=== PATIENT | female | born 1935 | race Caucasian/White ===

== ENCOUNTER → 2016-11-20 | Outpatient (CLI) | payer OTHER, BC ==
[~2016-11-20] MED LIST: DONE23TA PO; MOME220A INH
--- NOTE | 2016-11-20 15:27 | DIAGNOSTIC IMAGING REPORT ---
RIGHT RIBS UNILATERAL WITH PA CHEST CLINICAL HISTORY: Right-sided rib pain. COMPARISON STUDY: Chest CT July 01, 2016. FINDINGS: There are several old left rib fractures. There is no pneumothorax or pleural effusion. There is moderate S-shaped scoliosis of thoracolumbar spine. There is an acute mildly displaced fracture of the anterolateral right eighth rib. IMPRESSION: 1. Acute minimally displaced fracture of the anterolateral right eighth rib. 2. No pneumothorax. Electronically signed by: Avery John M.D. 11/20/2016 3:26 PM Dictated Date/Time: 11/20/2016 3:23 PM
== END | disposition home or self-care (01) ==
LOC: C.RADBC 14:37
PROVIDERS: ATTEND Physician Assistant Medical
DX: J20.9 Acute bronchitis, unspecified (principal); R07.81 Pleurodynia; M84.48XA Pathological fracture, other site, initial encounter for fracture

== ENCOUNTER → 2016-12-25 | Outpatient (CLI) | payer OTHER, BC ==
--- NOTE | 2016-12-25 11:43 | DIAGNOSTIC IMAGING REPORT ---
LEFT THUMB RADIOGRAPHS CLINICAL HISTORY: Left thumb pain, redness and swelling. COMPARISON: None FINDINGS: Alignment of left thumb is anatomic. There is moderate osteophytosis with mild to moderate joint space narrowing of the interphalangeal joint of the left thumb. An adjacent calcific/ossific density is chronic. There is no acute fracture or dislocation of the left thumb. No erosions are identified. There is mild osteoarthritis of the left first carpometacarpal joint. IMPRESSION: 1. No acute fracture or dislocation of the left thumb. 2. 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 Electronically signed by: Avery John M.D. 12/25/2016 11:42 AM Dictated Date/Time: 12/25/2016 11:40 AM
== END | disposition home or self-care (01) ==
LOC: C.RADBC 11:07
PROVIDERS: ATTEND Physician Assistant
DX: M79.645 Pain in left finger(s) (principal); M19.042 Primary osteoarthritis, left hand

== ENCOUNTER → 2017-02-02 | Outpatient (CLI) | payer OTHER, BC ==
[2017-02-02 15:24] LABS: ALT/SGPT 23 U/L (12-78); AST/SGOT 18 U/L (15-37); BLOOD UREA NITROGEN 18 mg/dl (7-18); BUN/CREATININE RATIO 15.3 (10-20); CALCIUM 9.9 mg/dl (8.5-10.1); CARBON DIOXIDE 29 mmol/L (21-32); CHLORIDE 104 mmol/L (98-107); CHOLESTEROL 215 mg/dl (0-200); GLUCOSE 88 mg/dl (70-99); POTASSIUM 4.1 mmol/L (3.5-5.1); SODIUM 141 mmol/L (136-145)
[2017-02-02 15:35] LABS: ALB/GLOB RATIO 1.1 (0.9-2); ALKALINE PHOSPHATASE 68 U/L (45-117); CHOLESTEROL/HDL RATIO 2.2; HDL CHOLESTEROL 100 mg/dl; LDL CHOLESTEROL CALCULATED 91 mg/dl; TRIGLYCERIDES 119 mg/dl (0-150); VERY LOW DENSITY LIPOPROT CALC 24 mg/dl
== END | disposition home or self-care (01) ==
LOC: C.LABBC 10:42
PROVIDERS: ATTEND Physician Assistant
DX: Z00.00 Encounter for general adult medical examination without abnormal findings (principal); E55.9 Vitamin D deficiency, unspecified; F09 Unspecified mental disorder due to known physiological condition

== ENCOUNTER → 2017-02-19 | Outpatient (CLI) | payer OTHER, BC ==
--- NOTE | 2017-02-19 17:00 | DIAGNOSTIC IMAGING REPORT ---
LEFT ANKLE MIN 3 VIEWS ROUTINE, LEFT FOOT MIN 3 VIEWS ROUTINE HISTORY: 82 years-old Female acute left-sided ankle pain status post fall COMPARISON: None available TECHNIQUE: 3 views of the left ankle and 3 views of the left foot FINDINGS: Ankle: Bones are moderately demineralized. Ankle mortise is well-maintained and anatomically positioned. Talar dome is smooth without osteochondral defect. There is mild forefoot degenerative spurring with minimal spurring of the calcaneus also noted. There is a 3 mm bone fragment noted adjacent to the medial malleolus without significant associated soft tissue swelling. Foot: Moderate bone demineralization is present. There is an acute nondisplaced oblique fracture involving the fifth metatarsal base with possible intra-articular extension into the cuboid metatarsal joint. No cuboid fracture is identified. There is mild associated soft tissue swelling. Mild to moderate interphalangeal degenerative changes are present. There is a 3 mm bone fragment seen medial to the first cuneiform. IMPRESSION: 1. Acute nondisplaced fracture involves the base of the fifth metatarsal with intra-articular extension. 2. Small 3 mm bone fragments are seen medial to the first cuneiform and medial malleolus which may reflect associated acute avulsion fractures. Correlate with point tenderness. 3. Background moderate bone demineralization. The above report was generated using voice recognition software. It may contain grammatical, syntax or spelling errors. Electronically signed by: Pelon Jordan M.D. 02/19/2017 4:59 PM Dictated Date/Time: 02/19/2017 4:55 PM
== END | disposition home or self-care (01) ==
LOC: C.RADBC 16:15
PROVIDERS: ATTEND Physician Assistant
DX: M25.572 Pain in left ankle and joints of left foot (principal); M79.673 Pain in unspecified foot

== ENCOUNTER → 2017-03-03 | Outpatient (CLI) | payer OTHER, BC ==
--- NOTE | 2017-03-04 07:45 | MAMMOGRAPHY REPORT ---
BILATERAL DIGITAL SCREENING MAMMOGRAM WITH CAD: 03/03/2017 CLINICAL HISTORY: Routine screening. Patient has no complaints. TECHNIQUE: Bilateral CC and MLO views were obtained. Current study was also evaluated with a Compute r Aided Detection (CAD) system. COMPARISON: Comparison is made to exams dated: 09/10/2015 mammogram, 09/08/2014 mammogram, 08/15/2013 m ammogram, 08/11/2012 mammogram, 01/17/2010 mammogram - [facility], and 01/16/2009. BREAST COMPOSITION: There are scattered areas of fibroglandular density in both breasts. FINDINGS: There are mild vascular calcifications in both breasts. No suspicious mass, architectural distortion or cluster of microcalcifications is seen. IMPRESSION: ACR BI-RADS CATEGORY 2: BENIGN There is no mammographic evidence of malignancy. A 1 year screening mammogram is recommended. The pa tient will receive written notification of the results. Approximately 10% of breast cancers are not detected with mammography. A negative mammographic report should not delay biopsy if a clinically suggestive mass is present. Sydni Perez M.D. ay/:03/03/2017 15:41:35 Software Packaging Engineer: Dana Duke, [facility] letter sent: Normal 1/2 BI-RADS Code: ACR BI-RADS Category 2: Benign
== END | disposition home or self-care (01) ==
LOC: C.MAMM 09:10
PROVIDERS: ATTEND Physician Assistant
DX: Z12.31 Encounter for screening mammogram for malignant neoplasm of breast (principal)

== ENCOUNTER → 2017-06-11 | Outpatient (CLI) | payer OTHER, BC ==
[~2017-06-11] MED LIST changes: +GADAVIST IV PRN
--- NOTE | 2017-06-11 09:27 | DIAGNOSTIC IMAGING REPORT ---
BRAIN COMBO CLINICAL HISTORY: 82 years-old Female presenting with F09 Cognitive [id number]. TECHNIQUE: Multisequence, multiplanar MR imaging of the brain was performed without the use of intravenous contrast. IV contrast: 5.5 mL of Gadavist. COMPARISON: 10/30/2011. FINDINGS: Proportional ventricular and sulcal prominence, likely age-related parenchymal volume loss. Asymmetric dilatation of the right temporal horn in comparison to the left likely indicating a greater degree of right hippocampal atrophy. Punctate focus of signal abnormality in the right cerebellar hemisphere likely prior lacunar infarct. No mass effect or midline shift. No restricted diffusion to suggest acute ischemia. No hemorrhage. No extra-axial fluid collection. T2 skull base flow voids preserved. No abnormal parenchymal enhancement. Bone marrow signal intensity within the calvarium within normal limits. Bilateral navajo lenses are absent. IMPRESSION: 1. No acute intracranial abnormality. 2. 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 Electronically signed by: Smith Harmon M.D. 06/11/2017 9:25 AM Dictated Date/Time: 06/11/2017 9:16 AM
== END | disposition home or self-care (01) ==
LOC: C.MRI 08:19
PROVIDERS: ATTEND Psychiatry & Neurology Neurology
DX: G31.9 Degenerative disease of nervous system, unspecified (principal); F09 Unspecified mental disorder due to known physiological condition

== ENCOUNTER → 2017-08-11 | Outpatient (CLI) | payer OTHER, BC ==
[~2017-08-11] MED LIST changes: -GADAVIST IV PRN
--- NOTE | 2017-08-11 12:19 | DIAGNOSTIC IMAGING REPORT ---
PELVIS 1 OR 2 VIEW ROUTINE HISTORY: 82 years-old Female M41.9 [id number] COMPARISON: Pelvis and right hip radiographs 07/25/2015, TECHNIQUE: Single AP view of the pelvis FINDINGS: The bones appear moderately demineralized. Chronic appearing fracture of the left inferior pubic ramus. Moderate degenerative changes of the bilateral hips. No acute fracture or subluxation identified. Degenerative changes are seen within the bilateral SI joints. Advanced facet arthropathy is seen within the lower lumbar spine along with intervertebral disc space narrowing. IMPRESSION: 1. Degenerative changes as above without acute fracture or subluxation. 2. Remote fracture of the left inferior pubic ramus. The above report was generated using voice recognition software. It may contain grammatical, syntax or spelling errors. Electronically signed by: Pelon Jordan M.D. 08/11/2017 12:18 PM Dictated Date/Time: 08/11/2017 12:15 PM
--- NOTE | 2017-08-11 12:40 | DIAGNOSTIC IMAGING REPORT ---
L-SPINE MIN 4 VIEWS ROUTINE CLINICAL HISTORY: Scoliosis. COMPARISON: Lumbar spine radiographs February 01, 2016. FINDINGS: Note is made of 28 degrees of levoscoliosis of the lumbar spine which appears slightly diminished when compared to exam of February 01, 2016. No fracture is identified. Slight anterolisthesis of L4 on L5 is unchanged. There are severe multilevel facet arthrosis with moderate multilevel degenerative disc disease. IMPRESSION: 1. Moderate levoscoliosis of the lumbar spine which appears slightly diminished when compared to exam February 01, 2016. This apparent interval change may be technical. 2. No acute fracture. 3. Severe multilevel facet arthrosis and moderate multilevel degenerative disc disease. Electronically signed by: Avery John M.D. 08/11/2017 12:39 PM Dictated Date/Time: 08/11/2017 12:36 PM
== END | disposition home or self-care (01) ==
LOC: C.RAD1850 11:55
PROVIDERS: ATTEND Internal Medicine
DX: M41.86 Other forms of scoliosis, lumbar region (principal); M12.9 Arthropathy, unspecified; M51.36 Other intervertebral disc degeneration, lumbar region; M19.90 Unspecified osteoarthritis, unspecified site; S32.502A Unspecified fracture of left pubis, initial encounter for closed fracture; X58.XXXA Exposure to other specified factors, initial encounter

== ENCOUNTER → 2017-08-28 | Outpatient (CLI) | payer OTHER, BC ==
[~2017-08-28] MED LIST changes: +ASCO500T3 PO; +ASMIN/60 INH; +BIOT1TAB2 PO; +CALC-354 PO; +DONE-87 PO; +GLUC1CAP33 PO; +LEVO1TAB33 PO; +MULT-845 PO; +MULTTAB17 PO; +PRED-301 PO
--- NOTE | 2017-08-28 14:30 | DIAGNOSTIC IMAGING REPORT ---
TWO VIEW CHEST CLINICAL HISTORY: Asthma. Cough. FINDINGS: PA and lateral chest radiographs are correlated with chest CT dated 07/01/2016. The cardiomediastinal silhouette is unremarkable. Chronic interstitial thickening is similar to previous. Airspace opacities are present the right lung base. This may represent a mild infectious/inflammatory pneumonitis. A trace right pleural effusion is suspected on the lateral view. The left lung appears clear. Apical scarring is observed. There is no pneumothorax. The skeletal structures are osteopenic. There is moderate S-shaped thoracolumbar scoliosis. There are healed left-sided rib fractures. IMPRESSION: There are mild airspace opacities and a trace pleural effusions in the right lung base. Correlate clinically for evidence of pneumonia. Radiographic follow-up to resolution is recommended. Electronically signed by: Tommy Ndiaye M.D. 08/28/2017 2:29 PM Dictated Date/Time: 08/28/2017 2:27 PM
== END | disposition home or self-care (01) ==
LOC: C.RAD1850 14:12
PROVIDERS: ATTEND Physician Assistant
DX: J45.909 Unspecified asthma, uncomplicated (principal); R05 Cough

== ENCOUNTER 2017-09-04 09:57 | Emergency (ER) | payer OTHER, BC ==
[~2017-09-04] VITALS: Ht 167.6 cm; Wt 53.0 kg
[~2017-09-04 09:57] MED LIST changes: -ASCO500T3 PO; -ASMIN/60 INH; -BIOT1TAB2 PO; -CALC-354 PO; -DONE-87 PO; -GLUC1CAP33 PO; -LEVO1TAB33 PO; -MULT-845 PO; -MULTTAB17 PO; -PRED-301 PO
[2017-09-04 09:59] VITALS: TEMP 36.9; Ht 167.6 cm; Wt 53.0 kg
[2017-09-04] MEDS ORDERED: BIOT1TAB2 PO (11:13)
[2017-09-04] MEDS ORDERED: ASCO500T3 PO (11:13)
[2017-09-04] MEDS ORDERED: CALC-354 PO (11:13)
[2017-09-04] MEDS ORDERED: MULT-845 PO (11:13)
[2017-09-04] MEDS ORDERED: PRED-301 PO (11:13)
[2017-09-04] MEDS ORDERED: LEVO1TAB33 PO (11:13)
[2017-09-04] MEDS ORDERED: GLUC1CAP33 PO (11:13)
[2017-09-04] MEDS ORDERED: MULTTAB17 PO (11:13)
[2017-09-04] MEDS ORDERED: ASMIN/60 INH (11:13)
[2017-09-04] MEDS ORDERED: DONE-87 PO (11:13)
--- NOTE | 2017-09-04 11:27 | DIAGNOSTIC IMAGING REPORT ---
L ANKLE MIN 3 VIEWS ROUTINE HISTORY: 82 years-old Female pain over medial malleolus acute medial left ankle pain COMPARISON: Left ankle radiographs 02/19/2017 TECHNIQUE: 4 views of the left ankle FINDINGS: The bones appear mildly demineralized. No acute fracture, dislocation or osteochondral defect. Healed fracture involves the base of the fifth metatarsal. Mild dorsal spurring about the midfoot. Mild circumferential soft tissue swelling about the ankle. No opaque foreign bodies. IMPRESSION: Mild soft tissue swelling without fracture identified. The above report was generated using voice recognition software. It may contain grammatical, syntax or spelling errors. Electronically signed by: Pelon Jordan M.D. 09/04/2017 11:25 AM Dictated Date/Time: 09/04/2017 11:24 AM
[2017-09-04 12:35] VITALS: BP 118/68; PULSE 73; O2SAT 96
--- NOTE | 2017-09-04 14:49 | EMERGENCY ROOM VISIT NOTE ---
History Report prepared by Mansoor: Katharina Yusuf Under the Supervision of: Dr. Jose Winkler M.D. First contact with patient: 10:42 Chief Complaint: ANKLE PAIN Stated Complaint: HURT ANKLE, FOOT LEFT History of Present Illness The patient is an 82 year old female who presents to the Emergency Room with complaints of persistent left ankle pain starting last night. The patient noticed the pain last night. She does not remember injuring her ankle. She denies any calf or leg pain, hip pain, or back pain. She has been on Levaquin for pneumonia. She is still coughing. She has 3 days of Levaquin left. Source of History: patient Onset: last night Position: ankle (left) Quality: other (pain) Timing: other (persistent) Associated Symptoms: + cough, No back pain Note: Pt denies calf pain, leg pain, hip pain. Review of Systems See HPI for pertinent positives and negatives. A total of ten systems were reviewed and were otherwise negative. Past Medical & Surgical Medical Problems: (1) Asthma (2) Chronic back pain (3) Osteoporosis (4) Sacroiliitis Family History Heart disease Social History Smoking Status: Never Smoker Marital Status: Occupation Status: retired Current/Historical Medications Scheduled Ascorbic Acid (Vitamin C), 500 MG PO DAILY Biotin (Biotin), 1 TAB PO DAILY Calcium Carbonate-Cholecalcife (Caltrate 600+D), 1 TAB PO DAILY Donepezil Hydrochloride (Donepezil Hcl), 23 MG PO DAILY Glucosamine-Chondroitin (Glucosamine & Chondroitin 500-400 mg), 1 CAP PO DAILY Levofloxacin (Levaquin), 500 MG PO DAILY Mometasone Furoate (Asmanex Twisthaler 60 Met), 1 PUFF INH BID Multiple Vitamins W/ Minerals (Centrum Silver Adult 50+), 1 TAB PO DAILY Multiple Vitamins W/ Minerals (Icaps Mv), 1 TAB PO DAILY Prednisone (Prednisone), 1 DOSE PO UD Allergies Coded Allergies: Betamethasone (Verified Allergy, Unknown, unkn, 07/01/16) Erythromycin (Verified Allergy, Unknown, UNKNOWN, 07/01/16) Esomeprazole (Verified Allergy, Unknown, UNKNOWN, 07/01/16) Propyl Gallate (Verified Allergy, Unknown, unkn, 07/01/16) Pseudoephedrine (Verified Allergy, Unknown, UNKNOWN, 07/01/16) Albuterol (Verified Adverse Reaction, Mild, RAPID HEART RATE, 07/01/16) Physical Exam Vital Signs Date Time Temp Pulse Resp B/P (MAP) Pulse Ox O2 Delivery O2 Flow Rate FiO2 09/04/17 12:35 73 18 118/68 96 Room Air 09/04/17 09:59 36.9 82 17 110/58 96 Room Air Physical Exam Physical Exam GENERAL: She is oriented to person, place, and time. She appears well- developed and well-nourished. She does not appear distressed. ____ HENT: Exam performed. Head: Normocephalic and atraumatic. Right Ear: External ear normal. No mastoid tenderness. Left Ear: External ear normal. No mastoid tenderness. Mouth/Throat: The oropharynx is clear and moist. No trismus in the jaw. No dental abscesses or uvula swelling. No oropharyngeal exudate or tonsillar abscesses. ____ EYES: Conjunctivae and EOM are normal. Pupils are equal, round, and reactive to light. Right eye exhibits no discharge. Left eye exhibits no discharge. No scleral icterus. ____ NECK: Normal range of motion. Neck supple. No JVD present. No spinous process tenderness present. No carotid bruit present. No rigidity. No tracheal deviation and normal range of motion present. No Brudzinski's sign and no Kernig 's sign noted. ____ CV: Normal rate, regular rhythm, normal heart sounds and intact distal pulses. There is no peripheral edema. Palpable radial pulses bue. ____ PULM/CHEST: Effort normal and breath sounds normal. No respiratory distress. No stridor. She has no wheezes. She has no rales. Chest Wall: She exhibits no tenderness. ____ ABD: The abdomen is soft. Bowel sounds are normal. She has no distension. No mass is present. There is no tenderness. There is no rebound, no guarding, no Horne's sign and no tenderness at McBurney's point. Rovsig negative MUSC/SKEL: Normal range of motion. There is no peripheral edema or deformity. LLE: Pain over the left medial malleolus. No pain on palpation of the lateral malleolus. No pain on palpation of the posterior calf or thigh. Hall test negative, no pain on palpation of the Achilles tendon. RLE: Within normal limits. No tenderness on palpation. Pelvis stable. LYMPH: No cervical adenopathy. ____ NEURO: She is alert and oriented to person, place, and time. She has normal strength. No cranial nerve deficit or sensory deficit. Coordination and gait normal. GCS eye subscore is 4. GCS verbal subscore is 5. GCS motor subscore is 6. cerbellar tests wnl. ____ SKIN: Skin is warm and dry. She is not diaphoretic. ____ PSYCH: She has a normal mood and affect. Her behavior is normal. Judgment and thought content normal. ____ Medical Decision & Procedures ER Provider Diagnostic Interpretation: Xray results as stated below per my and radiologist interpretation: L ANKLE MIN 3 VIEWS ROUTINE HISTORY: 82 years-old Female pain over medial malleolus acute medial left ankle pain COMPARISON: Left ankle radiographs 02/19/2017 TECHNIQUE: 4 views of the left ankle FINDINGS: The bones appear mildly demineralized. No acute fracture, dislocation or osteochondral defect. Healed fracture involves the base of the fifth metatarsal. Mild dorsal spurring about the midfoot. Mild circumferential soft tissue swelling about the ankle. No opaque foreign bodies. IMPRESSION: Mild soft tissue swelling without fracture identified. The above report was generated using voice recognition software. It may contain grammatical, syntax or spelling errors. Electronically signed by: Pelon Jordan M.D. 09/04/2017 11:25 AM Dictated Date/Time: 09/04/2017 11:24 AM ED Course 1044: The patient was evaluated in room B2. A complete history and physical exam was performed. 1206: Vss. Xray was negative. Dc for f/u PCP. DISCHARGE - Plan of care discussed with patient and questions answered. The patient was given both verbal and printed discharge instructions. The patient verbalized understanding and ability to comply. The patient is to seek outpatient follow up as noted in the discharge instructions. The patient verbalized understanding and ability to comply. The patient is discharged in stable condition. The patient was instructed to return for worsening symptoms. Medical Decision Vss. Xray was negative. Dc for f/u PCP. DISCHARGE - Plan of care discussed with patient and questions answered. The patient was given both verbal and printed discharge instructions. The patient verbalized understanding and ability to comply. The patient is to seek outpatient follow up as noted in the discharge instructions. The patient verbalized understanding and ability to comply. The patient is discharged in stable condition. The patient was instructed to return for worsening symptoms. Medication Reconcilliation Current Medication List: was personally reviewed by me Blood Pressure Screening Patient's blood pressure: Normal blood pressure Blood pressure disposition: Did not require urgent referral Impression Primary Impression: Ankle sprain Scribe Attestation The scribe's documentation has been prepared under my direction and personally reviewed by me in its entirety. I confirm that the note above accurately reflects all work, treatment, procedures, and medical decision making performed by me. The chart was completed utilizing [employer] voice recognition software. Grammatical errors, random word insertions, pronoun errors, and incomplete sentences are an occasional consequence of this system due to software limitations, ambient noise, and hardware issues. Any formal questions or concerns about the content, text, or information contained within the body of this dictation should be directly addressed to the physician for clarification. Departure Information Dispostion Home / Self-Care Referrals Juan Curtis M.D. (PCP) Forms HOME CARE DOCUMENTATION FORM, IMPORTANT VISIT INFORMATION Patient Instructions ED Sprain Ankle, My [facility] Problem Qualifiers Primary Impression: Ankle sprain Encounter type: initial encounter Involved ligament of ankle: unspecified ligament Laterality: unspecified laterality Qualified Codes: S93.409A - Sprain of unspecified ligament of unspecified ankle, initial encounter
== END 2017-09-04 12:59 | disposition home or self-care (01) ==
LOC: C.EDB 09:59
DX: S93.402A Sprain of unspecified ligament of left ankle, initial encounter (principal); R05 Cough; M81.0 Age-related osteoporosis without current pathological fracture; J45.909 Unspecified asthma, uncomplicated; Z79.899 Other long term (current) drug therapy; Z82.49 Family history of ischemic heart disease and other diseases of the circulatory system; Z88.1 Allergy status to other antibiotic agents; Z88.8 Allergy status to other drugs, medicaments and biological substances; X58.XXXA Exposure to other specified factors, initial encounter

== ENCOUNTER → 2018-03-11 | Outpatient (CLI) | payer OTHER, BC ==
[~2018-03-11] MED LIST changes: +ASCO500T3 PO; +ASMIN/60 INH; +BIOT1TAB2 PO; +CALC-354 PO; +DONE-87 PO; -DONE23TA PO; +GLUC1CAP33 PO; +LEVO1TAB33 PO; -MOME220A INH; +MULT-845 PO; +MULTTAB17 PO; +PRED-301 PO
--- NOTE | 2018-03-11 15:29 | DIAGNOSTIC IMAGING REPORT ---
RIBS UNILATERAL WITH PA CHEST CLINICAL HISTORY: R07.81 pain COMPARISON STUDY: 08/28/2017 FINDINGS: Nondisplaced cortical fractures anterior right ninth and 10th ribs. The remaining ribs are unremarkable for nondisplaced cortical fractures of the third and fourth ribs. Second rib shows evidence for an old fracture. IMPRESSION: 1. Nondisplaced cortical fractures anterior right ninth and 10th ribs, as well as anterior right third and fourth ribs. No evidence for pneumothorax. Lungs are considered clear. The above report was generated using voice recognition software. It may contain grammatical, syntax or spelling errors. Electronically signed by: Agustin Peña M.D. 03/11/2018 3:28 PM Dictated Date/Time: 03/11/2018 3:26 PM
--- NOTE | 2018-03-11 15:30 | DIAGNOSTIC IMAGING REPORT ---
R SHOULDER MIN 2 VIEWS ROUTINE CLINICAL HISTORY: M25.511 pain COMPARISON: None. DISCUSSION: The bones and joint spaces appear intact. There is no evidence of fracture, dislocation or bony disease. Mild degenerative change. No acute bony abnormality. IMPRESSION: Mild degenerative change. No acute bony abnormality. The above report was generated using voice recognition software. It may contain grammatical, syntax or spelling errors. Electronically signed by: Agustin Peña M.D. 03/11/2018 3:29 PM Dictated Date/Time: 03/11/2018 3:28 PM
== END | disposition home or self-care (01) ==
LOC: C.LAB1850 15:05
PROVIDERS: ATTEND Physician Assistant
DX: R07.81 Pleurodynia (principal); M25.511 Pain in right shoulder; S22.41XA Multiple fractures of ribs, right side, initial encounter for closed fracture; X58.XXXA Exposure to other specified factors, initial encounter

== ENCOUNTER 2022-08-10 13:30 | Observation (INO) ==
--- NOTE | 2022-08-10 13:59 | Emergency Department Note ---
Impression & Plan Syncopal episodes, Orthostatic hypotension, Elevated brain natriuretic peptide (BNP) level ED Provider Note HISTORY OF PRESENT ILLNESS: Patient is an 87-year-old female presenting after an episode of syncope. Patient presents from [facility]. She reportedly had a syncopal episode 3 days ago. She reportedly had another episode in which she passed out while being assisted with staff members today. He reportedly lowered the patient to the ground and she did not strike her head. Patient demented and unable to provide much in terms of history. She reports "I just feel off." Denies any chest pain. Documentation from the patient's facility shows that she recently had blood work done that showed an elevated BNP of over 3000. Patient has no history of heart failure. No lower extremity edema. On arrival to the ER, the patient has no specific complaints other than stating "I just feel off." I called [facility] to get more information. Fanny (nurse at [facility]) states patient was walking to her room and patient "passed out and was assisted to the floor." Reports she lost consciousness for a few seconds. Report patient's HR went from 70 to 115 after incident. No reported seizure- like activity. ROS: as above PHYSICAL EXAM: Constitutional: Patient appears in no acute distress. HENT: Head: Normocephalic and atraumatic. Eyes: EOMI, PERRL Mouth/Throat: Mucous membranes moist. Neck: Trachea midline. Neck supple. Cardiovascular: RRR, No murmurs, rubs or gallops. Intact distal pulses. Pulmonary/Chest: No respiratory distress. Breath sounds clear and equal bilaterally. No wheezes or rales. Abdominal: BS +. Abdomen soft, no tenderness, rebound or guarding. Back: No midline spinal tenderness, no paraspinal tenderness, no CVA tenderness. Musculoskeletal: No edema, tenderness or deformity noted. Skin: Warm and dry. No rash, erythema, pallor or cyanosis Psychiatric: Appropriate mood and affect for situation. Neurological: Alert to self only. CN II-XII grossly intact, moving all extremities equally and fully. MDM: - Vitals signs stable. - History obtained via staff at facility and patient's at bedside. Patient presents with syncopal episode. reports that he got a call that the patient passed out today at the facility. She had another episode of syncope 3 days ago. She has never had this before. No reported changes in medications. Patient is demented and unable to provide much in terms of history. - Chronic conditions affecting care: paroxysmal Afib; aortic insufficiency; diastolic heart failure; dementia - Differential diagnoses include, but are not limited to: dysrhythmia; ACS; CHF; PE; vasovagal; orthostatic-hypotension mediated syncope; stroke - Order placed for continuous cardiac monitoring. At this time, monitor showed rate of 63 bpm with irregular rhythm, per my interpretation. - External medical records reviewed. Patient was seen by c software developer in January 2021 and no further cardiology interventions were recommended. - EKG reviewed by myself showed atrial fibrillation. Rate 86 bpm. Normal intervals. QTc 421. No acute ischemic changes. Patient's previous EKG from May 2022 showed sinus rhythm, but patient has known paroxysmal afib history. - Laboratory workup interpreted by myself showed normal WBC; stable electrolytes; normal troponin; elevated BNP (275); normal TSH - CXR negative for acute cardiopulmonary pathology, per my interpretation. - Considered CT imaging of head, but patient has no headache complaints and no reported falls with head injury from facility. Patient also is neurologically intact on arrival to the ER - Orthostatic vital signs were obtained. When patient went from laying down to seated upright, her pressures dropped from upper 90s systolic to the 70s. Patient syncopal episodes are likely secondary to her positive orthostasis. We will give the patient 500 cc of fluid and admit to the hospitalist service. - Discussion was had with geriatric social work professor about patient's case and need for admission. - Hospitalist, Dr. Quan, consulted for admission. - Patient admitted to [facility] Hospitalist service for further evaluation and management. ASSESSMENT AND PLAN: Diagnosis: syncopal episodes; orthostatic hypotension; elevated BNP Plan: admit Past Med/Surg History Medical History (Updated 08/10/22 @ 16:32 by Gianna Dunn MD) AF (paroxysmal atrial fibrillation) Aortic insufficiency ARF (acute renal failure) (2018) Arthritis Asthma Cervical pain Chronic back pain Dementia Diastolic dysfunction Epidermal inclusion cyst Fracture of multiple pubic rami Fracture occcurred 06/13/2022 Fracture, thoracic vertebra (~06/13/22) Fracture occurred 06/13/2022 GERD without esophagitis History of pneumonia Lumbar radiculopathy Mitral regurgitation Osteoporosis Pulmonary nodules Ribs, multiple fractures Right hip pain Sacroiliitis Scoliosis Shoulder pain, right Thyroid nodule Urinary incontinence Vitamin D deficiency Surgical History S/P bilateral cataract extraction S/P bilateral salpingo-oophorectomy S/P breast biopsy S/P colonoscopy S/P dilation and curettage S/P tooth extraction S/P tubal ligation Family History Father Myocardial infarction Congestive heart failure Mother Dementia Daughter Breast cancer Ovarian cancer Other No significant family history Denies family history of Prostate cancer Colorectal cancer Social History Smoking Status: Never smoker Second Hand Exposure: No; Hx Alcohol Use: Yes Alcohol type: wine Hx Substance Use: No Preferred Language: Greek Communication Ability: Effective Visual Impairment: No Limitations Hearing Ability: Normal 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: No Beliefs That Will Affect Care: None marital status: Current Living Situation: Spouse current occupational status: retired Feels Safe at Home: Yes Seatbelt Use: always Sexual Activity: has been sexually active, but not for at least 12 months Assistive Devices: None Allergies Allergies Allergy/AdvReac Type Severity Reaction Status Date / Time betamethasone Allergy Unknown unkn Verified 06/14/22 01:26 erythromycin base Allergy Unknown UNKNOWN Verified 06/14/22 01:26 esomeprazole Allergy Unknown UNKNOWN Verified 06/14/22 01:26 propyl gallate Allergy Unknown unkn Verified 06/14/22 01:26 pseudoephedrine Allergy Unknown UNKNOWN Verified 06/14/22 01:26 formaldehyde Allergy Unknown Verified 06/14/22 01:26 albuterol AdvReac Mild RAPID Verified 06/14/22 01:26 HEART RATE Home Meds Home Medications Medication Instructions Recorded Confirmed acetaminophen 325 mg tablet 650 mg PO BID 02/06/21 06/14/22 melatonin 1 mg tablet 1 mg PO HS 02/06/21 06/14/22 acetaminophen 325 mg tablet 650 mg PO Q4 PRN Fever Or Pain 06/14/22 06/14/22 apixaban 2.5 mg tablet (Eliquis) 2.5 mg PO BID 06/14/22 06/14/22 dextromethorphan-guaifenesin 10 1 tab-cap PO Q6 PRN Cough 06/14/22 06/14/22 mg-200 mg capsule (Robitussin Cough-Chest Congestion DM) diclofenac sodium 1 % topical gel 4 g topical Q6 06/14/22 06/14/22 escitalopram oxalate 10 mg tablet 10 mg PO DAILY 06/14/22 06/14/22 vit C 250 mg-vit E 90 mg-zinc 40 12 cap PO DAILY 06/14/22 06/14/22 mg-copper 1 [id number] capsule (PreserVision AREDS-2) Previous Rx's Medication Instructions Recorded mometasone 220 mcg/actuation(120 1 puffs inhalation BID #3 ea 09/16/19 doses)breath activated powder inhaler (Asmanex Twisthaler) donepezil 23 mg tablet 23 mg PO DAILY 90 days #90 tabs 05/28/20 memantine 10 mg tablet 10 mg PO DAILY #90 tabs 06/25/20 flecainide 50 mg tablet 50 mg PO Q12H #180 tabs 07/02/20 Results & Data (ED) Vital Signs Vital Signs - 24 hr 08/10/22 13:37 08/10/22 13:37 08/10/22 13:54 Pulse Rate - Lying Pulse Rate - Sitting Pulse Rate 89 Pulse Rhythm Regular Pulse Strength Normal Respiratory Rate 18 Respiratory Effort / Characteristics Non-Labored Respiratory Depth Normal Respiratory Pattern Regular Blood Pressure - Lying Blood Pressure - Sitting Blood Pressure 106/72 Blood Pressure Mean 83 Pulse Oximetry 96 96 96 Oxygen Delivery Method Room Air Room Air Room Air Oxygen Flow Rate 0 Sepsis Recent Fever Within 48 Hours No Sepsis New/Unexplained Change in Mental Status No Sepsis Action Taken by Nursing No Action Required 08/10/22 14:30 08/10/22 15:00 08/10/22 15:28 Pulse Rate - Lying 64 Pulse Rate - Sitting 84 Pulse Rate 77 58 L Pulse Rhythm Pulse Strength Respiratory Rate 15 18 Respiratory Effort / Characteristics Respiratory Depth Respiratory Pattern Blood Pressure - Lying 125/78 Blood Pressure - Sitting 73/60 L Blood Pressure 100/63 99/59 L Blood Pressure Mean 75 72 Pulse Oximetry 96 93 Oxygen Delivery Method Oxygen Flow Rate Sepsis Recent Fever Within 48 Hours Sepsis New/Unexplained Change in Mental Status Sepsis Action Taken by Nursing 08/10/22 15:30 08/10/22 16:00 Pulse Rate - Lying Pulse Rate - Sitting Pulse Rate 59 L 68 Pulse Rhythm Pulse Strength Respiratory Rate 24 19 Respiratory Effort / Characteristics Respiratory Depth Respiratory Pattern Blood Pressure - Lying Blood Pressure - Sitting Blood Pressure 125/73 129/84 Blood Pressure Mean 90 99 Pulse Oximetry 92 96 Oxygen Delivery Method Oxygen Flow Rate Sepsis Recent Fever Within 48 Hours Sepsis New/Unexplained Change in Mental Status Sepsis Action Taken by Nursing Laboratory Data 08/10/22 13:47 08/10/22 13:47 Lab Results 08/10/22 08/10/22 08/10/22 Range/Units 13:47 13:47 13:47 WBC 7.96 (4.8-10.8) K/ul RBC 4.20 (3.93-5.22) M/uL Hgb 13.7 (12.0-16.0) g/dl Hct 41.2 (34.1-44.9) % MCV 98.1 (80.0-100.0) fL MCH 32.6 (25.0-34.0) pg MCHC 33.3 (32.0-36.0) g/dL RDW Std Deviation 52.6 H (36.4-46.3) fL RDW Coeff of Indira 14.5 (11.5-14.5) % Plt Count 214 (130-400) K/uL MPV 9.8 (9.4-12.3) fL Immature Gran % (Auto) 0.4 % Neut % (Auto) 74.4 % Lymph % (Auto) 16.3 % Antelope % (Auto) 6.9 % Eos % (Auto) 1.1 % Baso % (Auto) 0.9 % Neut # (Auto) 5.92 (1.4-6.5) K/uL Lymph # (Auto) 1.30 (1.2-3.4) K/uL Antelope # (Auto) 0.55 (0.24-0.82) K/uL Eos # (Auto) 0.09 (0-0.50) K/uL Baso # (Auto) 0.07 (0-0.2) K/uL Immature Gran # (Auto) 0.03 H (0.00-0.02) K/uL PT 11.9 (9.0-12.0) Seconds INR 1.1 (0.9-1.1) Sodium 138 (136-145) mmol/L Potassium 4.0 (3.5-5.1) mmol/L Chloride 103 (98-107) mmol/L Carbon Dioxide 27 (21-32) mmol/L Anion Gap 8 (3-11) BUN 18 (6-23) mg/dl Creatinine 0.83 (0.6-1.2) mg/dl Est Cr Clr Drug Dosing 39.6 ml/min Est GFR ( Amer) 72.5 ml/min Est GFR (Non-Af Amer) 62.5 ml/min BUN/Creatinine Ratio 21.7 H (10-20) Glucose 126 H (70-99(Fasting)) mg/dl Calcium 9.1 (8.5-10.1) mg/dl Magnesium 2.0 (1.7-2.4) mg/dl Total Bilirubin 0.3 (0.2-1.0) mg/dl AST 15 (13-39) U/L ALT 12 (7-52) U/L Alkaline Phosphatase 146 H (34-104) U/L Troponin I High Sens 7.3 (0-14) pg/ml B-Natriuretic Peptide (0-100) pg/ml Total Protein 6.2 (6.0-8.3) gm/dl Albumin 3.4 (3.4-5.0) gm/dl Globulin 2.8 (2.5-4.0) gm/dl Albumin/Globulin Ratio 1.2 (0.9-2) TSH (0.300-4.500) uIu/ml SARS-CoV-2 (PCR) (Negative) Influenza Type A (PCR) (Neg) Influenza Type B (PCR) (Neg) RSV (RT-PCR) (Neg) 08/10/22 08/10/22 08/10/22 Range/Units 13:47 13:47 13:58 WBC (4.8-10.8) K/ul RBC (3.93-5.22) M/uL Hgb (12.0-16.0) g/dl Hct (34.1-44.9) % MCV (80.0-100.0) fL MCH (25.0-34.0) pg MCHC (32.0-36.0) g/dL RDW Std Deviation (36.4-46.3) fL RDW Coeff of Indira (11.5-14.5) % Plt Count (130-400) K/uL MPV (9.4-12.3) fL Immature Gran % (Auto) % Neut % (Auto) % Lymph % (Auto) % Antelope % (Auto) % Eos % (Auto) % Baso % (Auto) % Neut # (Auto) (1.4-6.5) K/uL Lymph # (Auto) (1.2-3.4) K/uL Antelope # (Auto) (0.24-0.82) K/uL Eos # (Auto) (0-0.50) K/uL Baso # (Auto) (0-0.2) K/uL Immature Gran # (Auto) (0.00-0.02) K/uL PT (9.0-12.0) Seconds INR (0.9-1.1) Sodium (136-145) mmol/L Potassium (3.5-5.1) mmol/L Chloride (98-107) mmol/L Carbon Dioxide (21-32) mmol/L Anion Gap (3-11) BUN (6-23) mg/dl Creatinine (0.6-1.2) mg/dl Est Cr Clr Drug Dosing ml/min Est GFR ( Amer) ml/min Est GFR (Non-Af Amer) ml/min BUN/Creatinine Ratio (10-20) Glucose (70-99(Fasting)) mg/dl Calcium (8.5-10.1) mg/dl Magnesium (1.7-2.4) mg/dl Total Bilirubin (0.2-1.0) mg/dl AST (13-39) U/L ALT (7-52) U/L Alkaline Phosphatase (34-104) U/L Troponin I High Sens (0-14) pg/ml B-Natriuretic Peptide 275 H (0-100) pg/ml Total Protein (6.0-8.3) gm/dl Albumin (3.4-5.0) gm/dl Globulin (2.5-4.0) gm/dl Albumin/Globulin Ratio (0.9-2) TSH 3.370 (0.300-4.500) uIu/ml SARS-CoV-2 (PCR) NEGATIVE (Negative) Influenza Type A (PCR) Negative (Neg) Influenza Type B (PCR) Negative (Neg) RSV (RT-PCR) Negative (Neg) Administered Medications Sodium Chloride (Nss 1000ml) 500 mls @ 999 mls/hr IV .Q31M ONE Stop: 08/10/22 16:35 Last Admin: 08/10/22 16:07 Dose: 999 mls/hr Documented By: OA Imaging Data Radiologist's Impression: Chest X-Ray 08/10/22 13:54 SINGLE VIEW CHEST CLINICAL HISTORY: Syncope FINDINGS: An AP, portable, upright chest radiograph is compared to chest x-ray and chest CT dated 06/13/2022. The cardiomediastinal silhouette is top normal for projection noting atherosclerotic calcification of the thoracic aorta. The pulmonary vasculature is noncongested chronic residual thickening similar to previous. There is bibasilar scarring/atelectasis. No airspace consolidation or large pleural effusion is identified. No pneumothorax is seen. The skeletal structures are osteopenic. There are chronic/healed left-sided rib fractures. Arthritic change is noted in the shoulders and spine. IMPRESSION: No active disease in the chest. ACT 112: Negative or not required by law. Electronically signed by: Tommy Ndiaye M.D. 08/10/2022 2:25 PM Discharge Plan Visit Data Chief Complaint: Syncope ED Provider: Gianna Dunn Discharge Problem: Syncopal episodes, Orthostatic hypotension, Elevated brain natriuretic peptide (BNP) level Patient Disposition: Admitted As Inpatient Forms Stand Alone Forms: My [facility] Prescriptions Prescriptions: No Action Asmanex Twisthaler 220 mcg/ actuation (120) aerosol powdr breath activated 1 puffs INH BID Qty: 3 2RF donepezil 23 mg tablet 23 mg PO DAILY 90 Days Qty: 90 1RF memantine 10 mg tablet 10 mg PO DAILY Qty: 90 1RF flecainide 50 mg tablet 50 mg PO Q12H Qty: 180 3RF melatonin 1 mg tablet 1 mg PO HS acetaminophen 325 mg tablet 650 mg PO BID escitalopram oxalate 10 mg tablet 10 mg PO DAILY Eliquis 2.5 mg tablet 2.5 mg PO BID diclofenac sodium 1 % gel 4 g TOP Q6 Rx Instructions: apply to single knee, ankle, foot; for foot includes sole/toes/top of foot PreserVision AREDS-2 250-90-40-1 mg Capsule 12 cap PO DAILY acetaminophen 325 mg Tablet 650 mg PO Q4 MDD 3g PRN (Reason: Fever Or Pain) Robitussin Cough-Chest Lewis DM 10-200 mg Capsule 1 tab-cap PO Q6 PRN (Reason: Cough) Referrals Referrals: Lizandro Busby at [place] [Primary Care Provider] -
[2022-08-10 14:01] LABS: Basophils # (auto) 0.07 K/uL (0-0.2); Basophils % (auto) 0.9 %; Eosinophils # (auto) 0.09 K/uL (0-0.50); Eosinophils % (auto) 1.1 %; Hematocrit (blood only) 41.2 % (34.1-44.9); Hemoglobin 13.7 g/dl (12.0-16.0); Immature Granulocytes # (auto) 0.03 K/uL (0.00-0.02); Immature Granulocytes % (auto) 0.4 %; Lymphocytes % (auto) 16.3 %; Mean Corpuscular Hemoglobin 32.6 pg (25.0-34.0); Mean Corpuscular Hgb Conc 33.3 g/dL (32.0-36.0); Mean Corpuscular Volume 98.1 fL (80.0-100.0); Mean Platelet Volume 9.8 fL (9.4-12.3); Monocytes # (auto) 0.55 K/uL (0.24-0.82); Monocytes % (auto) 6.9 %; Neutrophils # (auto) 5.92 K/uL (1.4-6.5); Neutrophils % (auto) 74.4 %; Platelet Count 214 K/uL (130-400); RDW Coefficient of Variation 14.5 % (11.5-14.5); RDW Standard Deviation 52.6 fL (36.4-46.3); White Blood Count 7.96 K/ul (4.8-10.8)
[2022-08-10 14:13] LABS: INR 1.1 (0.9-1.1); Prothrombin Time 11.9 Seconds (9.0-12.0)
[2022-08-10 14:26] LABS: Albumin Globulin Ratio 1.2 (0.9-2); Albumin Level 3.4 gm/dl (3.4-5.0); BUN Creatinine Ratio 21.7 (10-20); Bilirubin,Total 0.3 mg/dl (0.2-1.0); Calcium 9.1 mg/dl (8.5-10.1); Creatinine Clr Calc Pharmacy 39.6 ml/min; Est GFR (African American) 72.5 ml/min; Est GFR (Non-African American) 62.5 ml/min; Globulin 2.8 gm/dl (2.5-4.0); Total Protein 6.2 gm/dl (6.0-8.3)
--- NOTE | 2022-08-10 14:26 | XRay Report ---
SINGLE VIEW CHEST CLINICAL HISTORY: Syncope FINDINGS: An AP, portable, upright chest radiograph is compared to chest x-ray and chest CT dated . The cardiomediastinal silhouette is top normal for projection noting atherosclerotic calcifi cation of the thoracic aorta. The pulmonary vasculature is noncongested chronic residual thickening s imilar to previous. There is bibasilar scarring/atelectasis. No airspace consolidation or large pleur al effusion is identified. No pneumothorax is seen. The skeletal structures are osteopenic. There are chronic/healed left-sided rib fractures. Arthritic change is noted in the shoulders and spine. IMPRESSION: No active disease in the chest. ACT 112: Negative or not required by law. Electronically signed by: Tommy Ndiaye M.D. 08/10/2022 2:25 PM
[2022-08-10 14:30] LABS: Troponin I High Sensitivity 7.3 pg/ml (0-14)
[2022-08-10 15:00] LABS: Influenza A virus by PCR Negative (Neg); Influenza B virus by PCR Negative (Neg); RSV by PCR Negative (Neg); SARS CoV2 RNA(COVID-19) Ceph NEGATIVE (Negative)
[2022-08-10] MEDS ORDERED: SODIUM CHLORIDE 0.9% 1000ML 500 ML IV ONE (16:05)
[2022-08-10 16:53] LABS: Appearance Urine Turbid (Clear); Bacteria Urine Automated 4+ (Negative); Bilirubin Urine Negative (Negative); Blood Urine 2+ (Negative); Color Urine Yellow; Epithelial Cell Urine Auto >30 /lpf (0-5); Glucose Urine UA Negative (Negative); Ketones Urine Trace (Negative); Leukocyte Esterase Urine Trace (Negative); Nitrite Urine Positive (Negative); Protein Urine 1+ (Negative); Specific Gravity Urine 1.031 (1.000-1.030); Urobilinogen Urine Negative (Negative)
--- NOTE | 2022-08-10 17:01 | History & Physical Report ---
Date of Service August 10, 2022 Assessment & Plan (1) Syncopal episodes: Plan: Two episodes - one on and today () Suspected due to orthostasis (documented in the ER; BP lying 125/78, sitting 73/60) Correlates well with starting of Forteo which may have also pushed her into atrial fibrillation Likely lack of compensatory tachycardia due to a. fib and flecainide use - see below TTE Monitor for other arrhythmias on telemetry Possible injuries: Although not suspected to have hit her head I have no story from her initial syncopal episode and patient is on apixaban therefore will get CT head Left ankle XR to assess for # given ecchymosis and swelling (2) Orthostatic hypotension: Plan: NSS 500 ml bolus given in ER No infection signs or symptoms Suspected secondary Forteo as above +/- a. fib (assuming she is normally in NSR per prior cardiology note but no pacemaker to check this) - see below treatment for a. fib Stop Forteo; Already had injection today so would not expect improvement until at least tomorrow Orthostatics q shift (3) Paroxysmal atrial fibrillation: Plan: Suspect exacerbated by Forteo causing hypotension and subsequently a. fib - although difficult to rule out a. fib not also contributing towards current orthostasis as above Increase flecainide to 100mg PO BID temporarily to help medically cardioversion NPO after midnight for possible electrical cardioversion tomorrow Consult cardiology Continue apixaban for anticoagulation (4) Dementia: Plan: Continue memantine and donepezil - much less likely contributing towards orthostatic hypotension given correlation and stated side effects percentages (5) Asthma: Plan: Continue Asmanex 1 elation 2 times a day or hospital formulary equivalent Plan VTE Prophylaxis - Apixaban Diet - heart healthy, NPO after midnight Disposition - observation status to PCU Admission and Anticipated Discharge Date Admission Date: August 10, 2022 History of Present Illness Chief Complaint: Syncope Primary Care Provider: Qi Bone at [place] Pavithra Newman is an 87 year old female with Alzheimer's dementia who [facility] the [facility] with syncopal episodes. Unable to get any history from the patient due to dementia. She currently reports pain on her right lower anterior rib and left lateral ankle but otherwise has no acute complaints. She denies any chest pain, dizziness, palpitations, shortness of breath. History obtained from [place]: Fanny Roberto at [facility]. Patient was walking with walker from dining room in hallway back to her room. Patient reported feeling "out of whack". Suddenly her knees buckled and she lost consciousness and was helped to the floor. Lost consciousness for a few seconds. Did not hit her head. Heart rate increased from 70 -> 115. BP 172/96. O2 sats 99% on room air. They managed to her get her back on her feet. Physician marketing operations intern advised transporting her to the ER for further evaluation. Allergies Allergy/AdvReac Type Severity Reaction Status Date / Time betamethasone Allergy Unknown unkn Verified 06/14/22 01:26 erythromycin base Allergy Unknown UNKNOWN Verified 06/14/22 01:26 esomeprazole Allergy Unknown UNKNOWN Verified 06/14/22 01:26 propyl gallate Allergy Unknown unkn Verified 06/14/22 01:26 pseudoephedrine Allergy Unknown UNKNOWN Verified 06/14/22 01:26 formaldehyde Allergy Unknown Verified 06/14/22 01:26 albuterol AdvReac Mild RAPID Verified 06/14/22 01:26 HEART RATE Home Medications Medication Instructions Recorded Confirmed Type mometasone 220 mcg/actuation(120 1 puffs inhalation BID #3 ea 09/16/19 08/10/22 Rx doses)breath activated powder inhaler (Asmanex Twisthaler) donepezil 23 mg tablet 23 mg PO DAILY 90 days #90 tabs 05/28/20 08/10/22 Rx memantine 10 mg tablet 10 mg PO DAILY #90 tabs 06/25/20 08/10/22 Rx flecainide 50 mg tablet 50 mg PO Q12H #180 tabs 07/02/20 08/10/22 Rx acetaminophen 325 mg tablet 650 mg PO Q4 PRN Fever Or Pain 06/14/22 08/10/22 History apixaban 2.5 mg tablet (Eliquis) 2.5 mg PO BID 06/14/22 08/10/22 History dextromethorphan-guaifenesin 10 1 tab-cap PO Q6 PRN Cough 06/14/22 08/10/22 History mg-200 mg capsule (Robitussin Cough-Chest Congestion DM) escitalopram oxalate 10 mg tablet 10 mg PO DAILY 06/14/22 08/10/22 History vit C 250 mg-vit E 90 mg-zinc 40 12 cap PO DAILY 06/14/22 08/10/22 History mg-copper 1 [id number] capsule (PreserVision AREDS-2) melatonin 3 mg tablet 3 mg PO HS PRN Insomnia 08/10/22 08/10/22 History teriparatide 20 mcg/dose (600 20 mcg subcut DAILY 08/10/22 08/10/22 History mcg/2.4 mL) subcutaneous pen injector (Forteo) Past Med/Surg History Medical History AF (paroxysmal atrial fibrillation) Aortic insufficiency ARF (acute renal failure) (2018) Arthritis Asthma Cervical pain Chronic back pain Dementia Diastolic dysfunction Epidermal inclusion cyst Fracture of multiple pubic rami Fracture occcurred 06/13/2022 Fracture, thoracic vertebra (~06/13/22) Fracture occurred 06/13/2022 GERD without esophagitis History of pneumonia Lumbar radiculopathy Mitral regurgitation Osteoporosis Pulmonary nodules Ribs, multiple fractures Right hip pain Sacroiliitis Scoliosis Shoulder pain, right Thyroid nodule Urinary incontinence Vitamin D deficiency Surgical History S/P bilateral cataract extraction S/P bilateral salpingo-oophorectomy S/P breast biopsy S/P colonoscopy S/P dilation and curettage S/P tooth extraction S/P tubal ligation Family History Father Myocardial infarction Congestive heart failure Mother Dementia Daughter Breast cancer Ovarian cancer Other No significant family history Denies family history of Prostate cancer Colorectal cancer Social History Smoking Status: Never smoker Second Hand Exposure: No; Hx Alcohol Use: Yes Alcohol type: wine Hx Substance Use: No Preferred Language: Telugu Communication Ability: Effective Visual Impairment: No Limitations Hearing Ability: Normal Army 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: No Beliefs That Will Affect Care: None marital status: Current Living Situation: Spouse current occupational status: retired Feels Safe at Home: Yes Seatbelt Use: always Sexual Activity: has been sexually active, but not for at least 12 months Assistive Devices: None Review of Systems Review of Systems: All systems reviewed & are unremarkable except as noted in HPI & below Physical Exam 2 Constitutional: well developed; + not well nourished and no acute distress Eyes: PERRL, conjunctivae normal, anicteric sclerae ENMT: external ear and nose normal, oropharynx normal Respiratory: normal respiratory effort, lungs clear to auscultation Cardiovascular: Rate/Rhythm: regular rate and + irregularly irregular Heart Sounds: no murmur Extremities: normal capillary refill; no calf tenderness and no pedal edema Gastrointestinal (Abdomen): normal bowel sounds, soft, nontender, no hepatosplenomegaly Skin: ecchymosis and swelling on left lateral ankle Neurologic: moves all extremities and awake; not confused Psychiatric: Orientation: alert and oriented to person; + not oriented to place and + not oriented to time Results & Data Results & Data ([facility]) Vital Signs (Past 12 Hours) Vital Signs Pulse Resp BP Pulse Ox O2 Del Method O2 Flow Rate 08/10/22 16:00 68 19 129/84 96 08/10/22 15:30 59 L 24 125/73 92 08/10/22 15:00 58 L 18 99/59 L 93 08/10/22 14:30 77 15 100/63 96 08/10/22 13:54 96 Room Air 08/10/22 13:37 96 Room Air 0 08/10/22 13:37 89 18 106/72 96 Room Air Laboratory Results Abnormal lab results 08/10/22 08/10/22 08/10/22 Range/Units 13:47 13:47 13:47 RDW Std Deviation 52.6 H (36.4-46.3) fL Immature Gran # (Auto) 0.03 H (0.00-0.02) K/uL BUN/Creatinine Ratio 21.7 H (10-20) Glucose 126 H (70-99(Fasting)) mg/dl Alkaline Phosphatase 146 H (34-104) U/L B-Natriuretic Peptide 275 H (0-100) pg/ml Diagnostic Findings SINGLE VIEW CHEST CLINICAL HISTORY: Syncope FINDINGS: An AP, portable, upright chest radiograph is compared to chest x-ray and chest CT dated 06/13/2022. The cardiomediastinal silhouette is top normal for projection noting atherosclerotic calcification of the thoracic aorta. The pulmonary vasculature is noncongested chronic residual thickening similar to previous. There is bibasilar scarring/atelectasis. No airspace consolidation or large pleural effusion is identified. No pneumothorax is seen. The skeletal structures are osteopenic. There are chronic/healed left-sided rib fractures. Arthritic change is noted in the shoulders and spine. IMPRESSION: No active disease in the chest. Medications Administered ER medications given: NSS 500 mL bolus ECG Rate (beats per minute): 86 Rhythm: atrial fibrillation Findings: no acute ischemic change Comparison ECG Date: from (June 13, 2022) Change: the following changes noted (Atrial fibrillation has replaced normal sinus rhythm) Code Status & VTE Plan Code Status DNR/DNI per at bedside, [place] unable to confirm VTE Prophylaxis Plan VTE Prophylaxis will be ordered: Yes PG Care Time/CCT Total # of Minutes Spent Total Time Spent with Patient: Total time spent is greater than 50% in coordination of care (as documented) at patient's floor/unit and/or counseling patient: Coding Level of Care Code 32457 INT INP/OBS CARE 3/75MIN Diagnoses Syncopal episodes R55 Orthostatic hypotension I95.1 Paroxysmal atrial fibrillation I48.0 Dementia F03.90 Asthma J45.909
[2022-08-10] MEDS ORDERED: ACETAMINOPHEN 325 MG TAB PO PRN (17:31)
[2022-08-10] MEDS ORDERED: MELATONIN 3 MG TAB PO PRN (17:41)
[2022-08-10] MEDS: LACTATED RINGER'S 1,000 ML IV SCH (18:21)
--- NOTE | 2022-08-10 18:21 | XRay Report ---
LEFT ANKLE 3 VIEWS CLINICAL HISTORY: Left ankle swelling and ecchymosis. FINDINGS: 3 views of the left ankle are compared to study dated 06/06/2020. The skeletal structures a re osteopenic. No fracture is seen. The ankle mortise is intact. No joint effusion is identified. Min imal soft tissue swelling is seen anteriorly. IMPRESSION: No acute bony abnormality is identified. Electronically signed by: Tommy Ndiaye M.D. 08/10/2022 6:19 PM
--- NOTE | 2022-08-10 19:00 | CT Scan Report ---
CT SCAN OF THE BRAIN WITHOUT IV CONTRAST CLINICAL HISTORY: Syncope. COMPARISON STUDY: CT of the brain dated 06/13/2022. TECHNIQUE: Unenhanced axial CT scan of the brain is performed from the vertex to the skull base. A do se lowering technique was utilized adhering to the principles of ALARA. FINDINGS: Brain parenchyma: There is age-related involutional change noting [id number] subcortical and pe riventricular microangiopathic disease. There is no hemorrhage, mass effect, or evidence of acute ter ritorial ischemia by CT criteria. Marshall-white matter differentiation is preserved. No extra-axial flui d collection is seen. Ventricles, sulci, cisterns: Prominent secondary to involutional change. Intracranial vasculature: There is atherosclerotic calcification of the cavernous carotid and vertebr al arteries. Calvarium: The skeletal structures are osteopenic. No depressed calvarial fracture is seen. Sinuses and mastoids: Mild mucosal thickening is noted in the left maxillary antrum. The remaining pa ranasal sinuses are clear. The mastoid air cells are well pneumatized. Cerumen is noted within the ex ternal auditory canals. Orbits: The bony orbits are grossly intact. There are bilateral ocular lens implants. IMPRESSION: There is no hemorrhage, mass effect, or evidence of acute territorial ischemia by CT crit edith. ACT 112: Negative or not required by law. Electronically signed by: oTmmy Ndiaye M.D. 08/10/2022 6:58 PM
[2022-08-10] MEDS: APIXABAN 2.5 MG TAB PO SCH (21:02)
[2022-08-10] MEDS: FLUTICASONE PROPIONATE NA SPR 16 GM BTL SCH (21:02)
[2022-08-10] MEDS: FLECAINIDE ACETATE 100 MG TABLET PO SCH (21:08)
--- NOTE | 2022-08-10 22:37 | Electrocardiogram Report ---
Test Reason : Blood Pressure : / mmHG Vent. Rate : 086 BPM Atrial Rate : 078 BPM P-R Int : 000 ms QRS Dur : 086 ms QT Int : 352 ms P-R-T Axes : 000 -29 098 degrees QTc Int : 421 ms Atrial fibrillation Possible Anterior infarct , age undetermined Abnormal ECG When compared with ECG of 13-JUN-2022 18:41, Atrial fibrillation has replaced Sinus rhythm Questionable change in QRS duration Borderline criteria for Anterior infarct are now Present Confirmed by Homer Daugherty ([id number]) on 08/10/2022 10:37:25 PM Referred By: Confirmed By:Homer Daugherty
[2022-08-11] MEDS: LACTATED RINGER'S 1,000 ML IV SCH ×2 (06:08→18:41)
[2022-08-11] MEDS: APIXABAN 2.5 MG TAB PO SCH ×2 (08:37→20:19)
[2022-08-11] MEDS: FLECAINIDE ACETATE 100 MG TABLET PO SCH ×2 (08:37→20:19)
[2022-08-11] MEDS: DONEPEZIL HCL 10 MG TAB PO SCH (08:37)
[2022-08-11] MEDS: CEROVITE ADV FORMULA TAB PO SCH (08:38)
[2022-08-11] MEDS: ESCITALOPRAM OXALATE 10 MG TAB PO SCH (08:38)
[2022-08-11] MEDS: FLUTICASONE PROPIONATE NA SPR 16 GM BTL SCH (08:38)
[2022-08-11] MEDS: MEMANTINE HCL 10 MG TAB PO SCH (08:38)
--- NOTE | 2022-08-11 10:11 | Cardiology Consultation ---
Date of Consultation August 11, 2022 Assessment & Plan (1) Syncopal episodes: (2) Orthostatic hypotension: Mrs. Newman is an 87 year old female with a history of Paroxysmal Atrial Fibrillation, Aortic Insufficiency, Mitral Regurgitation, LV Diastolic Dysfunction, GERD, Osteoporosis, Asthma, Diffuse Osteoarthritis (including L- Spine), and Alzheimer's Dementia who was admitted too [facility] on 08/10/22 after 2 Syncopal Episodes secondary to Orthostatic Hypotension which is likely a side effect of Forteo that was recently started. One syncopal episode occurred on 08/08/22 and the second occurred on 08/10/22. Patient is demented so the vast majority of this history was provided by the patient's , Servando Newman, who is present at the bedside and a review of her chart. According to the Night Time Nanny from [facility] "patient was walking with walker from dining room in the hallway back to her room. Patient reported feeling "out of whack". Suddenly her knees buckled and she lost consciousness and was helped to the floor. Lost consciousness for a few seconds but did not sustain any traumatic injuries." Patient's heart rate increased from 70 to greater than 115 bpm. BP 172/96. O2 sats 99% on room air. They managed to her get her back on her feet.In the ER the patient was noted to have marked orthostatic hypotension (125/78 and decreased to 73/60) and she was in atrial fibrillation with a controlled ventricular response rate in the mid 80's. Patient received a bolus of IV NSS 500 mL and her Flecainide was increased in an effort to convert her back to a normal sinus rhythm. Her syncopal episodes correlates with starting Forteo 20 mcg subcutaneous injections daily beginning on 08/07/22 for osteoporosis. There is a 5% incidence of orthostatic hypotension with this medication. Patient offers no complaints today. She remains in rate controlled A-Fib. Patient has not had any angina pectoris or anginal equivalent symptoms, overt signs or symptoms of heart failure, nor does she have any symptoms attributable to her atrial fibrillation. She has not had any symptoms suggestive of stroke or mini stroke. Patient is compliant with her medications. Recommend the following: -- Repeat EKG to assess QT interval with increased dose of Flecainide. -- Stop Forteo, consider alternative medicine for osteoporosis treatment. -- Continue gentle IVF's. -- Once patient's orthostasis resolves she may be discharged back to [facility]. (3) Paroxysmal atrial fibrillation: Patient is currently in rate controlled and completely asymptomatic atrial fibrillation. -- Continue Eliquis 2.5 mg b.i.d.. -- One option is to remain on Flecainide 100 mg b.i.d. with close monitoring of QT interval over the next 24-48 hours as she may convert back to normal rhythm. -- A secondary option would be to discontinue Flecainide and start Metoprolol Succinate ER 50 mg to 100 mg for rate control strategy without the risk of anti arrhythmic therapy. -- We would not recommend cardioversion unless her HR is uncontrolled atrial fibrillation or if she develops symptoms related to atrial fibrillation. -- Patient may resume her diet. (4) Aortic insufficiency: (5) Mitral regurgitation: -- She has Moderate AI and Mild MR. -- No intervention at this time. (6) Dementia: -- Continue Memantine and Donepezil as prescribed. Supervising Physician Co-Signing Physician Notes Patient care discussed with Mr. Dean. As she does not appear to be significantly symptomatic while in reasonably rate controlled atrial fibrillation, recommended that flecainide be discontinued. Would not pursue cardioversion unless she does not tolerate atrial fibrillation. Syncope may be related to orthostatic hypotension as documented. Medication therapy may be contributed as noted. Her primary bail bonding agent, Dr. Mills, to resume care on 08/12/2022. History of Present Illness Reason for Consultation: -- Atrial Fibrillation. -- Orthostatic Hypotension. Requesting Physician: Mil Montgomery Attending Physician: Elbert Jeter MD History of Present Illness Mrs. Newman is an 87 year old female with a history of Paroxysmal Atrial Fib rillation, Aortic Insufficiency, Mitral Regurgitation, LV Diastolic Dysfunction, GERD, Osteoporosis, Asthma, Diffuse Osteoarthritis (including L-Spine), and Alzheimer's Dementia who was admitted too [facility] on 08/10/22 after 2 Syncopal Episodes - one occurred on 08/08/22 and the second occurred on 08/10/22. Patient is demented so the vast majority of this history was provided by the patient's , Servando Newman, who is present at the bedside and a review of her chart. According to the Night Time Nanny from [facility] "patient was walking with walker from dining room in the hallway back to her room. Patient reported feeling "out of whack". Suddenly her knees buckled and she lost consciousness and was helped to the floor. Lost consciousness for a few seconds but did not sustain any traumatic injuries." Patient's heart rate increased from 70 to greater than 115 bpm. BP 172/96. O2 sats 99% on room air. They managed to her get her back on her feet.In the ER the patient was noted to have marked orthostatic hypotension (125/78 and decreased to 73/60) and she was in atrial fibrillation with a controlled ventricular response rate in the mid 80's. Patient received a bolus of IV NSS 500 mL and her Flecainide was increased in an effort to convert her back to a normal sinus rhythm. Interestingly, the onset of her syncopal episodes correlates with starting Forteo 20 mcg subcutaneous injections daily beginning on 08/07/22 for osteoporosis. There is a 5% incidence of orthostatic hypotension with this medication. Patient offers no complaints today. She remains in rate controlled A-Fib and does not have any symptoms attributable to her A-Fib. She specifically denies any palpitations, shortness of breath, or chest discomfort. She further denies any exertional chest pain, heaviness, tightness, pressure, or discomfort. She has not had any dyspnea on exertion, orthopnea, or paroxysmal nocturnal dyspnea. She denies any lightheadedness or dizziness at the present time. Patient is compliant with her medications. Allergies Allergy/AdvReac Type Severity Reaction Status Date / Time betamethasone Allergy Unknown unkn Verified 06/14/22 01:26 erythromycin base Allergy Unknown UNKNOWN Verified 06/14/22 01:26 esomeprazole Allergy Unknown UNKNOWN Verified 06/14/22 01:26 propyl gallate Allergy Unknown unkn Verified 06/14/22 01:26 pseudoephedrine Allergy Unknown UNKNOWN Verified 06/14/22 01:26 formaldehyde Allergy Unknown Verified 06/14/22 01:26 albuterol AdvReac Mild RAPID Verified 06/14/22 01:26 HEART RATE Home Medications Medication Instructions Recorded Confirmed Type mometasone 220 mcg/actuation(120 1 puffs inhalation BID #3 ea 09/16/19 08/10/22 Rx doses)breath activated powder inhaler (Asmanex Twisthaler) donepezil 23 mg tablet 23 mg PO DAILY 90 days #90 tabs 05/28/20 08/10/22 Rx memantine 10 mg tablet 10 mg PO DAILY #90 tabs 06/25/20 08/10/22 Rx flecainide 50 mg tablet 50 mg PO Q12H #180 tabs 07/02/20 08/10/22 Rx acetaminophen 325 mg tablet 650 mg PO Q4 PRN Fever Or Pain 06/14/22 08/10/22 History apixaban 2.5 mg tablet (Eliquis) 2.5 mg PO BID 06/14/22 08/10/22 History dextromethorphan-guaifenesin 10 1 tab-cap PO Q6 PRN Cough 06/14/22 08/10/22 History mg-200 mg capsule (Robitussin Cough-Chest Congestion DM) escitalopram oxalate 10 mg tablet 10 mg PO DAILY 06/14/22 08/10/22 History vit C 250 mg-vit E 90 mg-zinc 40 12 cap PO DAILY 06/14/22 08/10/22 History mg-copper 1 [id number] capsule (PreserVision AREDS-2) melatonin 3 mg tablet 3 mg PO HS PRN Insomnia 08/10/22 08/10/22 History teriparatide 20 mcg/dose (600 20 mcg subcut DAILY 08/10/22 08/10/22 History mcg/2.4 mL) subcutaneous pen injector (Forteo) Patient History Medical History AF (paroxysmal atrial fibrillation) Aortic insufficiency ARF (acute renal failure) (2018) Arthritis Asthma Cervical pain Chronic back pain Dementia Diastolic dysfunction Epidermal inclusion cyst Fracture of multiple pubic rami Fracture occcurred 06/13/2022 Fracture, thoracic vertebra (~06/13/22) Fracture occurred 06/13/2022 GERD without esophagitis History of pneumonia Lumbar radiculopathy Mitral regurgitation Osteoporosis Pulmonary nodules Ribs, multiple fractures Right hip pain Sacroiliitis Scoliosis Shoulder pain, right Thyroid nodule Urinary incontinence Vitamin D deficiency Surgical History S/P bilateral cataract extraction S/P bilateral salpingo-oophorectomy S/P breast biopsy S/P colonoscopy S/P dilation and curettage S/P tooth extraction S/P tubal ligation Family History Father Myocardial infarction Congestive heart failure Mother Dementia Daughter Breast cancer Ovarian cancer Other No significant family history Denies family history of Prostate cancer Colorectal cancer Social History Smoking Status: Former smoker Second Hand Exposure: No; Hx Alcohol Use: Yes Alcohol type: wine Hx Substance Use: No Preferred Language: Uzbek Communication Ability: Impaired Communication Ability Comment: Dementia Visual Impairment: No Limitations Hearing Ability: Normal Refrigeration Insulator Required: No Beliefs That Will Affect Care: None marital status: Current Living Situation: Group Home current occupational status: retired Other Information That Helps Us Care for You: No Feels Safe at Home: Yes Safety Concerns: Feels Safe At This Time Seatbelt Use: always Sexual Activity: has been sexually active, but not for at least 12 months Assistive Devices: Walker Physical Exam Physical Exam: Orthostatic vital signs today at 0700 -- 118/73 and pulse 88 bpm supine, goes to 120/79 and pulse 92 in semi-Arevalo position. GENERAL: Patient is in no acute distress. HEENT: Head is atraumatic, normocephalic. EOM's intact. Facies symmetric. No perioral cyanosis. NECK: No JVD. JVP is not elevated. Carotid upstrokes are +2 bilaterally without obvious bruits. CHEST and LUNGS: Clear to auscultation throughout all lung soriano. No wheezes, rales, or rhonchi. CVS: S1 and S2 are irregularly irregular and distant at 82 bpm. No obvious murmurs, gallops, or rubs. PMI is nondisplaced. No lifts, heaves, or thrills. No abdominal aortic or renal bruits. ABDOMINAL EXAM: Bowel sounds present. No masses, organomegaly, or tenderness. EXTREMITIES: No clubbing, cyanosis, or edema. No splinter hemorrhages. Intact radial and dorsalis pedis pulsations bilaterally. NEUROLOGIC EXAM: Patient is awake, alert, and interactive. Pleasant and cooperative. Gait pattern not assessed. SIGN WIRER: -- Rate controlled A-fib in the mid 80's this morning, V-rate in the 60's to 70's overnight. EKG 08/10/22: -- A-fib at 86 bpm, possible age-indeterminate anterior infarct. -- Corrected QT interval 421 msec. Results & Data ([facility]) Vital Signs (Past 12 Hours) Vital Signs Temp Pulse Resp BP Pulse Ox O2 Del Method 08/11/22 07:00 36.7 C 65 16 120/79 98 Room Air 08/11/22 07:00 92 H 20 08/11/22 03:00 36.8 C 73 16 118/73 97 Room Air 08/10/22 23:35 36.8 C 88 12 146/78 H 100 Room Air Laboratory Results Laboratory Results - last 24 hr 08/10/22 08/10/22 08/10/22 13:47 13:47 13:47 WBC 7.96 RBC 4.20 Hgb 13.7 Hct 41.2 MCV 98.1 MCH 32.6 MCHC 33.3 RDW Std Deviation 52.6 H RDW Coeff of Indira 14.5 Plt Count 214 MPV 9.8 Immature Gran % (Auto) 0.4 Neut % (Auto) 74.4 Lymph % (Auto) 16.3 [place] % (Auto) 6.9 Eos % (Auto) 1.1 Baso % (Auto) 0.9 Neut # (Auto) 5.92 Lymph # (Auto) 1.30 [place] # (Auto) 0.55 Eos # (Auto) 0.09 Baso # (Auto) 0.07 Immature Gran # (Auto) 0.03 H PT 11.9 INR 1.1 Sodium 138 Potassium 4.0 Chloride 103 Carbon Dioxide 27 Anion Gap 8 BUN 18 Creatinine 0.83 Est Cr Clr Drug Dosing 39.6 Est GFR ( Amer) 72.5 Est GFR (Non-Af Amer) 62.5 BUN/Creatinine Ratio 21.7 H Glucose 126 H Calcium 9.1 Magnesium 2.0 Total Bilirubin 0.3 AST 15 ALT 12 Alkaline Phosphatase 146 H Troponin I High Sens 7.3 B-Natriuretic Peptide Total Protein 6.2 Albumin 3.4 Globulin 2.8 Albumin/Globulin Ratio 1.2 TSH Urine Color Urine Appearance Urine pH Ur Specific [place] Urine Protein Urine Glucose (UA) Urine Ketones Urine Blood Urine Nitrite Urine Bilirubin Urine Urobilinogen Ur Leukocyte Esterase Urine WBC (Auto) Urine RBC (Auto) U Hyaline Cast (Auto) U Epithel Cells (Auto) Urine Bacteria (Auto) Urine Yeast Nasal Screen MRSA (PCR) SARS-CoV-2 (PCR) Influenza Type A (PCR) Influenza Type B (PCR) RSV (RT-PCR) 08/10/22 08/10/22 08/10/22 13:47 13:47 13:58 WBC RBC Hgb Hct MCV MCH MCHC RDW Std Deviation RDW Coeff of Indira Plt Count MPV Immature Gran % (Auto) Neut % (Auto) Lymph % (Auto) [place] % (Auto) Eos % (Auto) Baso % (Auto) Neut # (Auto) Lymph # (Auto) [place] # (Auto) Eos # (Auto) Baso # (Auto) Immature Gran # (Auto) PT INR Sodium Potassium Chloride Carbon Dioxide Anion Gap BUN Creatinine Est Cr Clr Drug Dosing Est GFR ( Amer) Est GFR (Non-Af Amer) BUN/Creatinine Ratio Glucose Calcium Magnesium Total Bilirubin AST ALT Alkaline Phosphatase Troponin I High Sens B-Natriuretic Peptide 275 H Total Protein Albumin Globulin Albumin/Globulin Ratio TSH 3.370 Urine Color Urine Appearance Urine pH Ur Specific [place] Urine Protein Urine Glucose (UA) Urine Ketones Urine Blood Urine Nitrite Urine Bilirubin Urine Urobilinogen Ur Leukocyte Esterase Urine WBC (Auto) Urine RBC (Auto) U Hyaline Cast (Auto) U Epithel Cells (Auto) Urine Bacteria (Auto) Urine Yeast Nasal Screen MRSA (PCR) SARS-CoV-2 (PCR) NEGATIVE Influenza Type A (PCR) Negative Influenza Type B (PCR) Negative RSV (RT-PCR) Negative 08/10/22 08/10/22 16:30 18:10 WBC RBC Hgb Hct MCV MCH MCHC RDW Std Deviation RDW Coeff of Indira Plt Count MPV Immature Gran % (Auto) Neut % (Auto) Lymph % (Auto) [place] % (Auto) Eos % (Auto) Baso % (Auto) Neut # (Auto) Lymph # (Auto) [place] # (Auto) Eos # (Auto) Baso # (Auto) Immature Gran # (Auto) PT INR Sodium Potassium Chloride Carbon Dioxide Anion Gap BUN Creatinine Est Cr Clr Drug Dosing Est GFR ( Amer) Est GFR (Non-Af Amer) BUN/Creatinine Ratio Glucose Calcium Magnesium Total Bilirubin AST ALT Alkaline Phosphatase Troponin I High Sens B-Natriuretic Peptide Total Protein Albumin Globulin Albumin/Globulin Ratio TSH Urine Color Yellow Urine Appearance Turbid A Urine pH 6.0 Ur Specific [place] 1.031 H Urine Protein 1+ H Urine Glucose (UA) Negative Urine Ketones Trace H Urine Blood 2+ H Urine Nitrite Positive A Urine Bilirubin Negative Urine Urobilinogen Negative Ur Leukocyte Esterase Trace H Urine WBC (Auto) 10-30 H Urine RBC (Auto) 5-10 H U Hyaline Cast (Auto) 1-5 U Epithel Cells (Auto) >30 H Urine Bacteria (Auto) 4+ H Urine Yeast Not Reportable Nasal Screen MRSA (PCR) Negative SARS-CoV-2 (PCR) Influenza Type A (PCR) Influenza Type B (PCR) RSV (RT-PCR) Diagnostic Findings CXR 08/10/22: An AP, portable, upright chest radiograph is compared to chest x-ray and chest CT dated 06/13/2022. The cardiomediastinal silhouette is top normal for projection noting atherosclerotic calcification of the thoracic aorta. The pulmonary vasculature is non-congested with chronic residual thickening similar to previous. There is bibasilar scarring/atelectasis. No airspace consolidation or large pleural effusion is identified. No pneumothorax is seen. The skeletal structures are osteopenic. There are chronic/healed left-sided rib fractures. Arthritic change is noted in the shoulders and spine. IMPRESSION: -- No active disease in the chest. NON-CONTRAST CT BRAIN 08/10/22: Brain parenchyma: There is age-related involutional change noting [id number] subcortical and periventricular microangiopathic disease. There is no hemorrhage, mass effect, or evidence of acute territorial ischemia by CT criteria. Marshall-white matter differentiation is preserved. No extra-axial fluid collection is seen. Ventricles, sulci, cisterns: Prominent secondary to involutional change. Intracranial vasculature: There is atherosclerotic calcification of the cavernous carotid and vertebral arteries. Calvarium: The skeletal structures are osteopenic. No depressed calvarial fracture is seen. Sinuses and mastoids: Mild mucosal thickening is noted in the left maxillary antrum. The remaining paranasal sinuses are clear. The mastoid air cells are well pneumatized. Cerumen is noted within the external auditory canals. Orbits: The bony orbits are grossly intact. There are bilateral ocular lens implants. IMPRESSION: -- There is no hemorrhage, mass effect, or evidence of acute territorial ischemia by CT criteria. Medications Administered Medications mometasone 220 mcg/actuation(120 doses)breath activated powder inhaler (Asmanex Twisthaler) 1 puffs inhalation BID #3 ea 09/16/19 [Rx Confirmed 08/10/22] donepezil 23 mg tablet 23 mg PO DAILY 90 days #90 tabs 05/28/20 [Rx Confirmed 08/10/22] memantine 10 mg tablet 10 mg PO DAILY #90 tabs 06/25/20 [Rx Confirmed 08/10/22] flecainide 50 mg tablet 50 mg PO Q12H #180 tabs 07/02/20 [Rx Confirmed 08/10/22] acetaminophen 325 mg tablet 650 mg PO Q4 PRN Fever Or Pain 06/14/22 [History Confirmed 08/10/22] apixaban 2.5 mg tablet (Eliquis) 2.5 mg PO BID 06/14/22 [History Confirmed 08/10/22] dextromethorphan-guaifenesin 10 mg-200 mg capsule (Robitussin Cough-Chest Congestion DM) 1 tab-cap PO Q6 PRN Cough 06/14/22 [History Confirmed 08/10/22] escitalopram oxalate 10 mg tablet 10 mg PO DAILY 06/14/22 [History Confirmed 08/10/22] vit C 250 mg-vit E 90 mg-zinc 40 mg-copper 1 [id number] capsule (PreserVision AREDS-2) 12 cap PO DAILY 06/14/22 [History Confirmed 08/10/22] melatonin 3 mg tablet 3 mg PO HS PRN Insomnia 08/10/22 [History Confirmed 08/10/22] teriparatide 20 mcg/dose (600 mcg/2.4 mL) subcutaneous pen injector (Forteo) 20 mcg subcut DAILY 08/10/22 [History Confirmed 08/10/22] Home Medications Acetaminophen (Acetaminophen 325 Mg Tab) 650 mg PO Q4H PRN PRN Reason: Pain or Fever Stop: 09/09/22 17:30 Apixaban (Apixaban 2.5 Mg Tab) 2.5 mg PO BID GUY Stop: 09/09/22 20:59 Last Admin: 08/11/22 08:37 Dose: 2.5 mg Donepezil HCl (Donepezil Hcl 10 Mg Tab) 20 mg PO DAILY GUY Stop: 09/10/22 08:59 Last Admin: 08/11/22 08:37 Dose: 20 mg Escitalopram Oxalate (Escitalopram Oxalate 10 Mg Tab) 10 mg PO DAILY [facility] Stop: 09/10/22 08:59 Last Admin: 08/11/22 08:38 Dose: 10 mg Flecainide Acetate (Flecainide Acetate 100 Mg Tablet) 100 mg PO Q12H [facility] Stop: 09/09/22 18:59 Last Admin: 08/11/22 08:37 Dose: 100 mg Fluticasone Propionate (Fluticasone Propionate Na Spr 16 Gm Btl) 2 sprays NA DAILY GUY Stop: 09/09/22 20:59 Last Admin: 08/11/22 08:38 Dose: 2 sprays Lactated Ringer's (Lr) 1,000 mls @ 80 mls/hr IV .[id number] [facility] Stop: 09/09/22 17:30 Last Admin: 08/11/22 06:08 Dose: 80 mls/hr Melatonin (Melatonin 3 Mg Tab) 3 mg PO HS PRN PRN Reason: Insomnia Stop: 09/09/22 17:40 Memantine (Memantine Hcl 10 Mg Tab) 10 mg PO DAILY [facility] Stop: 09/10/22 08:59 Last Admin: 08/11/22 08:38 Dose: 10 mg Multivitamins/Minerals (Cerovite Adv Formula Tab) 1 tab PO DAILY [facility] Stop: 09/10/22 08:59 Last Admin: 08/11/22 08:38 Dose: 1 tab PG Care Time/CCT Total # of Minutes Spent Total Time Spent with Patient: Total time spent is greater than 50% in coordination of care (as documented) at patient's floor/unit and/or counseling patient:28 C[place] [address] INT INP/OBS CARE 2/55MIN Patient Type Established Medical Decision Making Moderate Complexity Diagnoses Syncopal episodes R55 Orthostatic hypotension I95.1 Paroxysmal atrial fibrillation I48.0 Aortic insufficiency I35.1 Mitral regurgitation I34.0 Dementia F03.90 Time Spent (min) 57
--- NOTE | 2022-08-11 17:00 | XCELERA ---
[id number]
--- NOTE | 2022-08-11 22:09 | Hospitalist Progress Note ---
Date of Service August 11, 2022 Assessment & Plan (1) Syncopal episodes: Plan: Two episodes - one on and today () Suspected due to orthostasis (documented in the ER; BP lying 125/78, sitting 73/60) Correlates well with starting of Forteo which may have also pushed her into atrial fibrillation Likely lack of compensatory tachycardia due to a. fib and flecainide use - see below TTE Monitor for other arrhythmias on telemetry Possible injuries: Although not suspected to have hit her head I have no story from her initial syncopal episode and patient is on apixaban therefore will get CT head Left ankle XR to assess for # given ecchymosis and swelling After disucssion with cardio: appears symptoms are more from orthostasis, will cut back on medications that may worsen her orthostasis. will monitor her a fib. (2) Orthostatic hypotension: Plan: NSS 500 ml bolus given in ER No infection signs or symptoms Suspected secondary Forteo as above +/- a. fib (assuming she is normally in NSR per prior cardiology note but no pacemaker to check this) - see below treatment for a. fib Stop Forteo; Already had injection today so would not expect improvement until at least tomorrow Orthostatics q shift As above. (3) Paroxysmal atrial fibrillation: Plan: Suspect exacerbated by Forteo causing hypotension and subsequently a. fib - although difficult to rule out a. fib not also contributing towards current orthostasis as above Increase flecainide to 100mg PO BID temporarily to help medically cardioversion NPO after midnight for possible electrical cardioversion tomorrow Consult cardiology Continue apixaban for anticoagulation (4) Dementia: Plan: Continue memantine and donepezil - much less likely contributing towards orthostatic hypotension given correlation and stated side effects percentages (5) Asthma: Plan: Continue Asmanex 1 elation 2 times a day or hospital formulary equivalent Plan VTE Prophylaxis - Apixaban Diet - heart healthy, NPO after midnight Disposition - observation status to PCU Admission and Anticipated Discharge Date Admission Date: August 10, 2022 Subjective Patient is a poor historian. Patien thas no new complaints. Review of Systems Review of Systems: Unobtainable due to cognitive status Physical Exam Physical Exam: Constitutional: well developed; + not well nourished and no acute distress Eyes: PERRL, conjunctivae normal, anicteric sclerae ENMT: external ear and nose normal, oropharynx normal Respiratory: normal respiratory effort, lungs clear to auscultation Cardiovascular: Rate/Rhythm: regular rate and + irregularly irregular Heart Sounds: no murmur Extremities: normal capillary refill; no calf tenderness and no pedal edema Gastrointestinal (Abdomen): normal bowel sounds, soft, nontender, no hepatosplenomegaly Skin: ecchymosis and swelling on left lateral ankle Neurologic: moves all extremities and awake; not confused Psychiatric: Orientation: alert and oriented to person; + not oriented to place and + not oriented to time Results & Data Results & Data ([facility]) Vital Signs (Past 12 Hours) Vital Signs Temp Pulse Resp BP Pulse Ox O2 Del Method 08/11/22 20:18 156/79 H 08/11/22 18:58 36.9 C 81 18 99/66 L 96 Room Air 08/11/22 15:00 36.8 C 81 18 130/81 96 Room Air 08/11/22 11:00 36.3 C L 87 18 131/93 97 Room Air PG Care Time/CCT Total # of Minutes Spent Total Time Spent with Patient: Total time spent is greater than 50% in coordination of care (as documented) at patient's floor/unit and/or counseling patient: Coding Level of Care Code 06698 SUB INP/OBS CARE 2/35MIN Diagnoses Syncopal episodes R55 Orthostatic hypotension I95.1 Paroxysmal atrial fibrillation I48.0 Dementia F03.90 Asthma J45.909
[2022-08-12] MEDS: FLECAINIDE ACETATE 100 MG TABLET PO SCH ×2 (06:04→20:24)
[2022-08-12 06:19] LABS: Hematocrit (blood only) 36.9 % (34.1-44.9); Hemoglobin 12.6 g/dl (12.0-16.0); Mean Corpuscular Hgb Conc 34.1 g/dL (32.0-36.0); Mean Corpuscular Volume 96.6 fL (80.0-100.0); Mean Platelet Volume 9.9 fL (9.4-12.3); Platelet Count 204 K/uL (130-400); RDW Coefficient of Variation 14.4 % (11.5-14.5); RDW Standard Deviation 50.9 fL (36.4-46.3); Red Blood Count 3.82 M/uL (3.93-5.22); White Blood Count 9.49 K/ul (4.8-10.8)
[2022-08-12 07:01] LABS: BUN Creatinine Ratio 15.3 (10-20); Calcium 8.5 mg/dl (8.5-10.1); Creatinine Clr Calc Pharmacy 44.2 ml/min; Est GFR (African American) 86.1 ml/min; Est GFR (Non-African American) 74.3 ml/min; Potassium 4.3 mmol/L (3.5-5.1)
[2022-08-12] MEDS: MEMANTINE HCL 10 MG TAB PO SCH (07:54)
[2022-08-12] MEDS: DONEPEZIL HCL 10 MG TAB PO SCH (07:54)
[2022-08-12] MEDS: FLUTICASONE PROPIONATE NA SPR 16 GM BTL SCH (07:55)
[2022-08-12] MEDS: CEROVITE ADV FORMULA TAB PO SCH (07:55)
[2022-08-12] MEDS: APIXABAN 2.5 MG TAB PO SCH ×2 (07:55→20:24)
[2022-08-12] MEDS: ESCITALOPRAM OXALATE 10 MG TAB PO SCH (07:55)
[2022-08-12] MEDS: LACTATED RINGER'S 1,000 ML IV SCH ×2 (07:56→20:22)
--- NOTE | 2022-08-12 09:45 | Cardiology Progress Note ---
Date of Service August 12, 2022 Assessment & Plan (1) Orthostatic hypotension: (2) Syncopal episodes: (3) Paroxysmal atrial fibrillation: (4) Aortic insufficiency: (5) Mitral regurgitation: Plan: Mrs. Newman is an 87 year old female with a history of Paroxysmal Atrial Fibrillation, Aortic Insufficiency, Mitral Regurgitation, LV Diastolic Dysfunction, GERD, Osteoporosis, Asthma, Diffuse Osteoarthritis (including L- Spine), and Alzheimer's Dementia who was admitted too [facility] on 08/10/22 after 2 Syncopal Episodes secondary to Orthostatic Hypotension which is likely a side effect of Forteo that was recently started. One syncopal episode occurred on 08/08/22 and the second occurred on 08/10/22. Patient is demented so the vast majority of this history was provided by the patient's , Servando Newman, who is present at the bedside and a review of her chart. According to the Upstairs Maid from [facility] "patient was walking with walker from dining room in the hallway back to her room. Patient reported feeling "out of whack". Suddenly her knees buckled and she lost consciousness and was helped to the floor. Lost consciousness for a few seconds but did not sustain any traumatic injuries." Patient's heart rate increased from 70 to greater than 115 bpm. BP 172/96. O2 sats 99% on room air. They managed to her get her back on her feet.In the ER the patient was noted to have marked orthostatic hypotension (125/78 and decreased to 73/60) and she was in atrial fibrillation with a controlled ventricular response rate in the mid 80's. Patient received a bolus of IV NSS 500 mL and her Flecainide was increased in an effort to convert her back to a normal sinus rhythm. Her syncopal episodes correlates with starting Forteo 20 mcg subcutaneous injections daily beginning on 08/07/22 for osteoporosis. There is a 5% incidence of orthostatic hypotension with this medication. Patient remains in rate controlled A-Fib at rates in the 60's to 80's. Patient has not had any angina pectoris or anginal equivalent symptoms, overt signs or symptoms of heart failure, nor does she have any symptoms attributable to her atrial fibrillation. She has not had any symptoms suggestive of stroke or mini stroke. Patient is compliant with her medications. Atrial Fibrillation is NOT contributing to her Orthostasis. Echocardiogram 08/11/2022 shows normal biventricular systolic function, LVEF 60% to 65%, mild AI, mild MR, and normal estimated RVSP. When compared with 06/17/2018 study RVSP has improved. Recommend the following: -- Repeat EKG to assess QT interval with increased dose of Flecainide. -- Stop Forteo, consider alternative medicine for osteoporosis treatment. -- Continue gentle IVF's. -- Once patient's orthostasis resolves she may be discharged back to [facility]. -- Continue Flecainide 100 mg every 12 hours for another 24 hours as there is the possibility that can convert back to a normal sinus rhythm. -- If she does not convert, consider stopping Flecainide and using a rate control strategy with beta nino vs CCB +/- Digoxin. -- Continue custodial Eliquis 2.5 mg b.i.d.. -- Monitor orthostatic vital signs every shift. (6) Dementia: Plan: -- Continue Memantine and Donepezil. Admission and Anticipated Discharge Date Admission Date: August 10, 2022 Subjective Mrs. Newman is an 87 year old female with a history of Paroxysmal Atrial Fibrillation, Aortic Insufficiency, Mitral Regurgitation, LV Diastolic Dysfunction, GERD, Osteoporosis, Asthma, Diffuse Osteoarthritis (including L- Spine), and Alzheimer's Dementia who was admitted too [facility] on 08/10/22 after 2 Syncopal Episodes - one occurred on 08/08/22 and the second occurred on 08/10/22. Patient is demented so the vast majority of this history was provided by the patient's , Servando Newman, who is present at the bedside and a review of her chart. According to the Upstairs Maid from [facility] "patient was walking with walker from dining room in the hallway back to her room. Patient reported feeling "out of whack". Suddenly her knees buckled and she lost consciousness and was helped to the floor. Lost consciousness for a few seconds but did not sustain any traumatic injuries." Patient's heart rate increased from 70 to greater than 115 bpm. BP 172/96. O2 sats 99% on room air. They managed to her get her back on her feet.In the ER the patient was noted to have marked orthostatic hypotension (125/78 and decreased to 73/60) and she was in atrial fibrillation with a controlled ventricular response rate in the mid 80's. Patient received a bolus of IV NSS 500 mL and her Flecainide was increased in an effort to convert her back to a normal sinus rhythm. Interestingly, the onset of her syncopal episodes correlates with starting Forteo 20 mcg subcutaneous injections daily beginning on 08/07/22 for osteoporosis. There is a 5% incidence of orthostatic hypotension with this medication. Patient offers no complaints today. Her is not at the bedside today. Patient specifically denies any chest pain, heaviness, tightness, pressure, or discomfort. She denies any shortness of breath, orthopnea, or PND. She remains in atrial fibrillation but denies any palpitations or symptoms attributable to her atrial fibrillation. She denies any syncope or near syncope since being admitted. Echocardiogram 08/11/2022: -- Normal biventricular systolic function. -- LVEF 60% to 65%. -- Mild AI. -- Mild MR. -- Normal estimated RVSP. -- When compared with 06/17/2018 study; RVSP has improved. Review of Systems Review of Systems: 10 point ROS completed and is negative with the exception of what is mentioned in the HPI. Physical Exam Physical Exam: GENERAL: Patient is in no acute distress. HEENT: Head is atraumatic, normocephalic. EOM's intact. Facies symmetric. No perioral cyanosis. NECK: No JVD. JVP is not elevated. Carotid upstrokes are +2 bilaterally without obvious bruits. CHEST and LUNGS: Clear to auscultation throughout all lung soriano. No wheezes, rales, or rhonchi. CVS: S1 and S2 are irregularly irregular and distant at 68 bpm. No obvious murmurs, gallops, or rubs. PMI is nondisplaced. No lifts, heaves, or thrills. No abdominal aortic or renal bruits. ABDOMINAL EXAM: Bowel sounds present. No masses, organomegaly, or tenderness. EXTREMITIES: No clubbing, cyanosis, or edema. No splinter hemorrhages. Intact radial and dorsalis pedis pulsations bilaterally. NEUROLOGIC EXAM: Patient is awake, alert, and interactive. Pleasant and cooperative. Gait pattern not assessed. SPEEDER WORKER: -- Rate controlled A-fib in the mid 60's to id 80's this morning, V-rate in the 60's to 70's overnight. EKG 08/12/22: -- Ordered but has not been completed yet. Results & Data ([facility]) Vital Signs (Past 12 Hours) Vital Signs Temp Pulse Pulse Resp BP Pulse Ox O2 Del Method 08/12/22 07:00 36.5 C 96 H 16 115/69 96 Room Air 08/12/22 03:43 36.4 C L 93 H 16 113/65 97 Room Air 08/11/22 23:41 81 08/11/22 22:58 91 H 18 129/73 99 Room Air Laboratory Results Laboratory Results - last 24 hr 08/12/22 08/12/22 05:58 05:58 WBC 9.49 RBC 3.82 L Hgb 12.6 Hct 36.9 MCV 96.6 MCH 33.0 MCHC 34.1 RDW Std Deviation 50.9 H RDW Coeff of Indira 14.4 Plt Count 204 MPV 9.9 Sodium 135 L Potassium 4.3 Chloride 104 Carbon Dioxide 27 Anion Gap 4 BUN 11 Creatinine 0.72 Est Cr Clr Drug Dosing 44.2 Est GFR ( Amer) 86.1 Est GFR (Non-Af Amer) 74.3 BUN/Creatinine Ratio 15.3 Glucose 105 H Calcium 8.5 Medications Administered Medications mometasone 220 mcg/actuation(120 doses)breath activated powder inhaler (Asmanex Twisthaler) 1 puffs inhalation BID #3 ea 09/16/19 [Rx Confirmed 08/10/22] donepezil 23 mg tablet 23 mg PO DAILY 90 days #90 tabs 05/28/20 [Rx Confirmed 08/10/22] memantine 10 mg tablet 10 mg PO DAILY #90 tabs 06/25/20 [Rx Confirmed 08/10/22] flecainide 50 mg tablet 50 mg PO Q12H #180 tabs 07/02/20 [Rx Confirmed 08/10/22] acetaminophen 325 mg tablet 650 mg PO Q4 PRN Fever Or Pain 06/14/22 [History Confirmed 08/10/22] apixaban 2.5 mg tablet (Eliquis) 2.5 mg PO BID 06/14/22 [History Confirmed 08/10/22] dextromethorphan-guaifenesin 10 mg-200 mg capsule (Robitussin Cough-Chest Congestion DM) 1 tab-cap PO Q6 PRN Cough 06/14/22 [History Confirmed 08/10/22] escitalopram oxalate 10 mg tablet 10 mg PO DAILY 06/14/22 [History Confirmed 08/10/22] vit C 250 mg-vit E 90 mg-zinc 40 mg-copper 1 [id number] capsule (PreserVision AREDS-2) 12 cap PO DAILY 06/14/22 [History Confirmed 08/10/22] melatonin 3 mg tablet 3 mg PO HS PRN Insomnia 08/10/22 [History Confirmed 08/10/22] teriparatide 20 mcg/dose (600 mcg/2.4 mL) subcutaneous pen injector (Forteo) 20 mcg subcut DAILY 08/10/22 [History Confirmed 08/10/22] Home Medications Acetaminophen (Acetaminophen 325 Mg Tab) 650 mg PO Q4H PRN PRN Reason: Pain or Fever Stop: 09/09/22 17:30 Apixaban (Apixaban 2.5 Mg Tab) 2.5 mg PO BID GUY Stop: 09/09/22 20:59 Last Admin: 08/12/22 07:55 Dose: 2.5 mg Donepezil HCl (Donepezil Hcl 10 Mg Tab) 20 mg PO DAILY GUY Stop: 09/10/22 08:59 Last Admin: 08/12/22 07:54 Dose: 20 mg Escitalopram Oxalate (Escitalopram Oxalate 10 Mg Tab) 10 mg PO DAILY GUY Stop: 09/10/22 08:59 Last Admin: 08/12/22 07:55 Dose: 10 mg Flecainide Acetate (Flecainide Acetate 100 Mg Tablet) 100 mg PO Q12H GUY Stop: 09/09/22 18:59 Last Admin: 08/12/22 06:04 Dose: 100 mg Fluticasone Propionate (Fluticasone Propionate Na Spr 16 Gm Btl) 2 sprays NA DAILY GUY Stop: 09/09/22 20:59 Last Admin: 08/12/22 07:55 Dose: 2 sprays Lactated Ringer's (Lr) 1,000 mls @ 80 mls/hr IV .[id number] GUY Stop: 09/09/22 17:30 Last Admin: 08/12/22 07:56 Dose: 80 mls/hr Melatonin (Melatonin 3 Mg Tab) 3 mg PO HS PRN PRN Reason: Insomnia Stop: 09/09/22 17:40 Memantine (Memantine Hcl 10 Mg Tab) 10 mg PO DAILY GUY Stop: 09/10/22 08:59 Last Admin: 08/12/22 07:54 Dose: 10 mg Multivitamins/Minerals (Cerovite Adv Formula Tab) 1 tab PO DAILY GUY Stop: 09/10/22 08:59 Last Admin: 08/12/22 07:55 Dose: 1 tab PG Care Time/CCT Total # of Minutes Spent Total Time Spent with Patient: Total time spent is greater than 50% in coordination of care (as documented) at patient's floor/unit and/or counseling patient:22 Coding [place] [address] SUB INP/OBS CARE 3/50MIN Patient Type Established History Detailed Exam Detailed Medical Decision Making Moderate Complexity Diagnoses Orthostatic hypotension I95.1 Syncopal episodes R55 Paroxysmal atrial fibrillation I48.0 Aortic insufficiency I35.1 Mitral regurgitation I34.0 Dementia F03.90 Time Spent (min) 54
--- NOTE | 2022-08-12 22:14 | Hospitalist Progress Note ---
Date of Service August 12, 2022 Assessment & Plan (1) Syncopal episodes: Plan: Two episodes - one on and today () Suspected due to orthostasis (documented in the ER; BP lying 125/78, sitting 73/60) Correlates well with starting of Forteo which may have also pushed her into atrial fibrillation Likely lack of compensatory tachycardia due to a. fib and flecainide use - see below TTE Monitor for other arrhythmias on telemetry Possible injuries: Although not suspected to have hit her head I have no story from her initial syncopal episode and patient is on apixaban therefore will get CT head Left ankle XR to assess for # given ecchymosis and swelling After disucssion with cardio: appears symptoms are more from orthostasis, will cut back on medications that may worsen her orthostasis. will monitor her a fib. She spontaneously converted back to sinus rhythm on 08/12. Qi is requesting repeat PT/OT evals. Likely discharge on 08/13 (2) Orthostatic hypotension: Plan: NSS 500 ml bolus given in ER No infection signs or symptoms Suspected secondary Forteo as above +/- a. fib (assuming she is normally in NSR per prior cardiology note but no pacemaker to check this) - see below treatment for a. fib Stop Forteo; Already had injection today so would not expect improvement until at least tomorrow Orthostatics q shift As above. (3) Paroxysmal atrial fibrillation: Plan: Suspect exacerbated by Forteo causing hypotension and subsequently a. fib - although difficult to rule out a. fib not also contributing towards current orthostasis as above Increase flecainide to 100mg PO BID temporarily to help medically cardioversion NPO after midnight for possible electrical cardioversion tomorrow Consult cardiology Continue apixaban for anticoagulation spontaenously converted. (4) Dementia: Plan: Continue memantine and donepezil - much less likely contributing towards orthostatic hypotension given correlation and stated side effects percentages (5) Asthma: Plan: Continue Asmanex 1 elation 2 times a day or hospital formulary equivalent Plan VTE Prophylaxis - Apixaban Diet - heart healthy, Admission and Anticipated Discharge Date Admission Date: August 12, 2022 Subjective 87 yo female is a poor historian. Review of Systems Review of Systems: All systems reviewed & are unremarkable except as noted in HPI & below Physical Exam Physical Exam: Constitutional: well developed; + not well nourished and no acute distress Eyes: PERRL, conjunctivae normal, anicteric sclerae ENMT: external ear and nose normal, oropharynx normal Respiratory: normal respiratory effort, lungs clear to auscultation Cardiovascular: Rate/Rhythm: regular rate and + irregularly irregular Heart Sounds: no murmur Extremities: normal capillary refill; no calf tenderness and no pedal edema Gastrointestinal (Abdomen): normal bowel sounds, soft, nontender, no hepatosplenomegaly Skin: ecchymosis and swelling on left lateral ankle Neurologic: moves all extremities and awake; not confused Psychiatric: Orientation: alert and oriented to person; + not oriented to place and + not oriented to time Results & Data Results & Data ([facility]) Vital Signs (Past 12 Hours) Vital Signs Temp Pulse Resp BP Pulse Ox O2 Del Method 08/12/22 19:29 37.2 C 71 16 98/49 L 94 Room Air 08/12/22 15:00 36.7 C 70 18 96/61 L 95 Room Air 08/12/22 11:00 73 PG Care Time/CCT Total # of Minutes Spent Total Time Spent with Patient: Total time spent is greater than 50% in coordination of care (as documented) at patient's floor/unit and/or counseling patient: Coding Level of Care Code 66498 SUB INP/OBS CARE 2/35MIN Diagnoses Syncopal episodes R55 Orthostatic hypotension I95.1 Paroxysmal atrial fibrillation I48.0 Dementia F03.90 Asthma J45.909
[2022-08-13] MEDS: MEMANTINE HCL 10 MG TAB PO SCH (08:28)
[2022-08-13] MEDS: FLECAINIDE ACETATE 100 MG TABLET PO SCH (08:28)
[2022-08-13] MEDS: APIXABAN 2.5 MG TAB PO SCH (08:29)
[2022-08-13] MEDS: CEROVITE ADV FORMULA TAB PO SCH (08:30)
[2022-08-13] MEDS: ESCITALOPRAM OXALATE 10 MG TAB PO SCH (08:31)
[2022-08-13] MEDS: DONEPEZIL HCL 10 MG TAB PO SCH (08:31)
[2022-08-13] MEDS: FLUTICASONE PROPIONATE NA SPR 16 GM BTL SCH (08:32)
[2022-08-13] MEDS: LACTATED RINGER'S 1,000 ML IV SCH (08:33)
--- NOTE | 2022-08-13 09:16 | Cardiology Progress Note ---
Date of Service August 13, 2022 Assessment & Plan (1) Orthostatic hypotension: Plan: Mrs. Newman is an 87 year old female with a history of Paroxysmal Atrial Fibrillation, Aortic Insufficiency, Mitral Regurgitation, LV Diastolic Dysfunction, GERD, Osteoporosis, Asthma, Diffuse Osteoarthritis (including L- Spine), and Alzheimer's Dementia who was admitted too [facility] on 08/10/22 after 2 Syncopal Episodes secondary to Orthostatic Hypotension which is likely a side effect of Forteo that was recently started. One syncopal episode occurred on 08/08/22 and the second occurred on 08/10/22. Patient is demented so the vast majority of this history was provided by the patient's , Servando Newman, who is present at the bedside and a review of her chart. According to the Marketing Operations Analyst from [facility] "patient was walking with walker from dining room in the hallway back to her room. Patient reported feeling "out of whack". Suddenly her knees buckled and she lost consciousness and was helped to the floor. Lost consciousness for a few seconds but did not s ustain any traumatic injuries." Patient's heart rate increased from 70 to greater than 115 bpm. BP 172/96. O2 sats 99% on room air. They managed to her get her back on her feet.In the ER the patient was noted to have marked orthostatic hypotension (125/78 and decreased to 73/60) and she was in atrial fibrillation with a controlled ventricular response rate in the mid 80's. Patient received a bolus of IV NSS 500 mL and her Flecainide was increased in an effort to convert her back to a normal sinus rhythm. Her syncopal episodes correlates with starting Forteo 20 mcg subcutaneous injections daily beginning on 08/07/22 for osteoporosis. There is a 5% incidence of orthostatic hypotension with this medication. Patient appears to have converted back to a normal sinus rhythm as of 0935 yesterday morning and she had a 4 second pause when converting -- so she may have some underlying sinus node dysfunction. Patient has not had any angina pectoris or anginal equivalent symptoms, overt signs or symptoms of heart failure, nor does she have any symptoms attributable to her atrial fibrillation. She has not had any symptoms suggestive of stroke or mini stroke. Patient is compliant with her medications. Recommend the following: -- EKG 08/12/22 shows NSR vs an ectopic atrial rhythm at 64 bpm, incomplete RBBB, and a corrected QT interval is 412 msec. -- Remain off of Forteo, consider alternative medicine for osteoporosis treatment. -- Continue gentle IVF's. -- Once patient's orthostasis resolves she may be discharged back to [facility]. (2) Paroxysmal atrial fibrillation: Plan: Patient is back in a normal sinus rhythm. -- Continue Eliquis 2.5 mg b.i.d.. -- Continue Flecainide 100 mg b.i.d.. -- Monitor orthostatic vital signs. (3) Aortic insufficiency: (4) Mitral regurgitation: Plan: -- She has Moderate AI and Mild MR. -- No intervention at this time. (5) Dementia: Plan: -- Continue Memantine and Donepezil as prescribed. Admission and Anticipated Discharge Date Admission Date: August 12, 2022 Subjective Mrs. Newman still feels a bit "washed out" but she has not had any further syncopal or near syncopal episodes. Patient appears to have converted back to a normal sinus rhythm as of 934 yesterday morning and she had a 4 second pause when converting -- so she may have some underlying sinus node dysfunction. She does not recall any symptoms when this happened nor does she have any idea that she converted back to a normal rhythm because she was in asymptomatic atrial fibrillation. She denies any chest pain, heaviness, tightness, pressure, or discomfort. She denies any neck, jaw, back, or arm pain. She denies any shortness of breath, orthopnea, or PND. She denies any palpitations. She has not had any symptoms suggestive of stroke. Review of Systems Review of Systems: 10 point ROS completed and is negative with the exception of what is mentioned in the HPI. Physical Exam Physical Exam: GENERAL: Patient is in no acute distress. HEENT: Head is atraumatic, normocephalic. EOM's intact. Facies symmetric. No perioral cyanosis. NECK: No JVD. JVP is not elevated. Carotid upstrokes are +2 bilaterally without obvious bruits. CHEST and LUNGS: Clear to auscultation throughout all lung soriano. No wheezes, rales, or rhonchi. CVS: S1 and S2 are regular and distant at 60 bpm. No obvious murmurs, gallops, or rubs. PMI is nondisplaced. No lifts, heaves, or thrills. No abdominal aortic or renal bruits. ABDOMINAL EXAM: Bowel sounds present. No masses, organomegaly, or tenderness. EXTREMITIES: No clubbing, cyanosis, or edema. No splinter hemorrhages. Intact radial and dorsalis pedis pulsations bilaterally. NEUROLOGIC EXAM: Patient is awake, alert, and interactive. Pleasant and cooperative. Gait pattern not assessed. YARN WASHER: -- Converted to NSR yesterday a.m. at 0935, 4 second pause when she converted from atrial fibrillation to normal sinus rhythm. EKG 08/12/22: -- NSR vs an ectopic atrial rhythm with an incomplete RBBB at 64 bpm. -- Age indeterminate inferior infarct. -- Anterolateral infarct cited on or before 08/10/2022. -- Corrected QT interval is 412 msec. -- When compared to 08/10/2022 tracing; Sinus rhythm verses ectopic atrial rhythm has replaced atrial fibrillation, and nonspecific T-wave abnormality is worse in lateral leads. Results & Data ([facility]) Vital Signs (Past 12 Hours) Vital Signs Temp Pulse Pulse Resp BP Pulse Ox O2 Del Method 08/13/22 07:00 37.3 C 65 20 148/73 H 93 Room Air 08/13/22 03:01 36.5 C 59 L 16 137/78 97 Room Air 08/13/22 01:30 72 08/12/22 22:59 37.1 C 64 18 111/72 95 Room Air O2 Flow Rate 08/13/22 07:00 2 08/13/22 03:01 08/13/22 01:30 08/12/22 22:59 Laboratory Results Laboratory Results - last 24 hr 08/13/22 07:28 POC Glucose 124 H Medications Administered Medications mometasone 220 mcg/actuation(120 doses)breath activated powder inhaler (Asmanex Twisthaler) 1 puffs inhalation BID #3 ea 09/16/19 [Rx Confirmed 08/10/22] donepezil 23 mg tablet 23 mg PO DAILY 90 days #90 tabs 05/28/20 [Rx Confirmed 08/10/22] memantine 10 mg tablet 10 mg PO DAILY #90 tabs 06/25/20 [Rx Confirmed 08/10/22] flecainide 50 mg tablet 50 mg PO Q12H #180 tabs 07/02/20 [Rx Confirmed 08/10/22] acetaminophen 325 mg tablet 650 mg PO Q4 PRN Fever Or Pain 06/14/22 [History Confirmed 08/10/22] apixaban 2.5 mg tablet (Eliquis) 2.5 mg PO BID 06/14/22 [History Confirmed 08/10/22] dextromethorphan-guaifenesin 10 mg-200 mg capsule (Robitussin Cough-Chest Congestion DM) 1 tab-cap PO Q6 PRN Cough 06/14/22 [History Confirmed 08/10/22] escitalopram oxalate 10 mg tablet 10 mg PO DAILY 06/14/22 [History Confirmed 08/10/22] vit C 250 mg-vit E 90 mg-zinc 40 mg-copper 1 [id number] capsule (PreserVision AREDS-2) 12 cap PO DAILY 06/14/22 [History Confirmed 08/10/22] melatonin 3 mg tablet 3 mg PO HS PRN Insomnia 08/10/22 [History Confirmed 08/10/22] teriparatide 20 mcg/dose (600 mcg/2.4 mL) subcutaneous pen injector (Forteo) 20 mcg subcut DAILY 08/10/22 [History Confirmed 08/10/22] Home Medications Acetaminophen (Acetaminophen 325 Mg Tab) 650 mg PO Q4H PRN PRN Reason: Pain or Fever Stop: 09/09/22 17:30 Apixaban (Apixaban 2.5 Mg Tab) 2.5 mg PO BID GUY Stop: 09/09/22 20:59 Last Admin: 08/13/22 08:29 Dose: 2.5 mg Donepezil HCl (Donepezil Hcl 10 Mg Tab) 20 mg PO DAILY GUY Stop: 09/10/22 08:59 Last Admin: 08/13/22 08:31 Dose: 20 mg Escitalopram Oxalate (Escitalopram Oxalate 10 Mg Tab) 10 mg PO DAILY GUY Stop: 09/10/22 08:59 Last Admin: 08/13/22 08:31 Dose: 10 mg Flecainide Acetate (Flecainide Acetate 100 Mg Tablet) 100 mg PO Q12H GUY Stop: 09/09/22 18:59 Last Admin: 08/13/22 08:28 Dose: 100 mg Fluticasone Propionate (Fluticasone Propionate Na Spr 16 Gm Btl) 2 sprays NA DAILY [facility] Stop: 09/09/22 20:59 Last Admin: 08/13/22 08:32 Dose: 2 sprays Lactated Ringer's (Lr) 1,000 mls @ 80 mls/hr IV .[id number] [facility] Stop: 09/09/22 17:30 Last Admin: 08/13/22 08:33 Dose: 80 mls/hr Melatonin (Melatonin 3 Mg Tab) 3 mg PO HS PRN PRN Reason: Insomnia Stop: 09/09/22 17:40 Memantine (Memantine Hcl 10 Mg Tab) 10 mg PO DAILY [facility] Stop: 09/10/22 08:59 Last Admin: 08/13/22 08:28 Dose: 10 mg Multivitamins/Minerals (Cerovite Adv Formula Tab) 1 tab PO DAILY [facility] Stop: 09/10/22 08:59 Last Admin: 08/13/22 08:30 Dose: 1 tab PG Care Time/CCT Total # of Minutes Spent Total Time Spent with Patient: Total time spent is greater than 50% in coordination of care (as documented) at patient's floor/unit and/or counseling patient:22 Coding [place] [address] SUB INP/OBS CARE 2/35MIN Patient Type Established History Detailed Exam Detailed Medical Decision Making Moderate Complexity Diagnoses Orthostatic hypotension I95.1 Paroxysmal atrial fibrillation I48.0 Aortic insufficiency I35.1 Mitral regurgitation I34.0 Dementia F03.90 Time Spent (min) 46
--- NOTE | 2022-08-14 06:02 | Electrocardiogram Report ---
Test Reason : Blood Pressure : / mmHG Vent. Rate : 064 BPM Atrial Rate : 064 BPM P-R Int : 214 ms QRS Dur : 096 ms QT Int : 400 ms P-R-T Axes : 125 217 123 degrees QTc Int : 412 ms Poor data quality, interpretation may be adversely affected Sinus rhythm Incomplete right bundle branch block Inferior infarct , age undetermined Anterior infarct Limb lead reversal suspected Abnormal ECG When compared with ECG of 10-AUG-2022 13:34, Sinus rhythm has replaced Atrial fibrillation Limb lead reversal is now present Nonspecific T wave abnormality, worse in Lateral leads Confirmed by Alvaro Jeter ([id number]) on 08/14/2022 6:02:06 AM Referred By: Lizandro william [facility] Confirmed By:Alvaro Jeter
--- NOTE | 2022-08-21 17:15 | Discharge Summary ---
Date of Service August 13, 2022 Admission HPI Per Admitting Provider Pavithra Newman is an 87 year old female with Alzheimer's dementia who presents to the ER from [facility] dementia unit with syncopal episodes. Unable to get any history from the patient due to dementia. She currently reports pain on her right lower anterior rib and left lateral ankle but otherwise has no acute complaints. She denies any chest pain, dizziness, palpitations, shortness of breath. History obtained from [employer]: Fanny Roberto at [facility]. Patient was walking with walker from dining room in hallway back to her room. Patient reported feeling "out of whack". Suddenly her knees buckled and she lost consciousness and was helped to the floor. Lost consciousness for a few seconds. Did not hit her head. Heart rate increased from 70 -> 115. BP 172/96. O2 sats 99% on room air. They managed to her get her back on her feet. Physician medical collections specialist advised transporting her to the ER for further evaluation. Principal Diagnosis syncopal episodes Discharge Exam Constitutional: well developed; + not well nourished and no acute distress Eyes: PERRL, conjunctivae normal, anicteric sclerae ENMT: external ear and nose normal, oropharynx normal Respiratory: normal respiratory effort, lungs clear to auscultation Cardiovascular: Rate/Rhythm: regular rate and + irregularly irregular Heart Sounds: no murmur Extremities: normal capillary refill; no calf tenderness and no pedal edema Gastrointestinal (Abdomen): normal bowel sounds, soft, nontender, no hepatosplenomegaly Skin: ecchymosis and swelling on left lateral ankle Neurologic: moves all extremities and awake; not confused Psychiatric: Orientation: alert and oriented to person; + not oriented to place and + not oriented to time Discharge Data Allergies Allergy/AdvReac Type Severity Reaction Status Date / Time betamethasone Allergy Unknown unkn Verified 06/14/22 01:26 erythromycin base Allergy Unknown UNKNOWN Verified 06/14/22 01:26 esomeprazole Allergy Unknown UNKNOWN Verified 06/14/22 01:26 propyl gallate Allergy Unknown unkn Verified 06/14/22 01:26 pseudoephedrine Allergy Unknown UNKNOWN Verified 06/14/22 01:26 formaldehyde Allergy Unknown Verified 06/14/22 01:26 albuterol AdvReac Mild RAPID Verified 06/14/22 01:26 HEART RATE Consultations 08/10/22 16:30 ED Decision to Admit Stat 08/10/22 17:31 Consult Cardiology Routine Ordered Studies 08/10/22 18:02 CT head/brain wo con Stat Hospital Course (1) Syncopal episodes: Two episodes - one on and today () Suspected due to orthostasis (documented in the ER; BP lying 125/78, sitting 73/60) Correlates well with starting of Forteo which may have also pushed her into atrial fibrillation Likely lack of compensatory tachycardia due to a. fib and flecainide use - see below TTE Monitor for other arrhythmias on telemetry Possible injuries: Although not suspected to have hit her head I have no story from her initial syncopal episode and patient is on apixaban therefore will get CT head Left ankle XR to assess for # given ecchymosis and swelling After discussion with cardio: appears symptoms are more from orthostasis, will cut back on medications that may worsen her orthostasis. will monitor her a fib. She spontaneously converted back to sinus rhythm on 08/12. Appreciate input from Cardio: Patient appears to have converted back to a normal sinus rhythm as of 934 yesterday morning and she had a 4 second pause when converting -- so she may have some underlying sinus node dysfunction. Patient has not had any angina pectoris or anginal equivalent symptoms, overt signs or symptoms of heart failure, nor does she have any symptoms attributable to her atrial fibrillation. She has not had any symptoms suggestive of stroke or mini stroke. Patient is compliant with her medications. Recommend the following: -- EKG 08/12/22 shows NSR vs an ectopic atrial rhythm at 64 bpm, incomplete RBBB, and a corrected QT interval is 412 msec. -- Remain off of Forteo, consider alternative medicine for osteoporosis treatment. (2) Orthostatic hypotension: NSS 500 ml bolus given in ER No infection signs or symptoms Suspected secondary Forteo as above +/- a. fib (assuming she is normally in NSR per prior cardiology note but no pacemaker to check this) - see below treatment for a. fib Stop Forteo; Already had injection today so would not expect improvement until at least tomorrow Orthostatics q shift As above. (3) Paroxysmal atrial fibrillation: Suspect exacerbated by Forteo causing hypotension and subsequently a. fib - although difficult to rule out a. fib not also contributing towards current orthostasis as above Increase flecainide to 100mg PO BID temporarily to help medically cardioversion NPO after midnight for possible electrical cardioversion tomorrow Consult cardiology Continue apixaban for anticoagulation spontaenously converted. (4) Dementia: Continue memantine and donepezil - much less likely contributing towards orthostatic hypotension given correlation and stated side effects percentages (5) Asthma: Continue Asmanex 1 elation 2 times a day or hospital formulary equivalent Plan VTE Prophylaxis - Apixaban Diet - heart healthy, Total Time Total Time Spent Total Time Spent (In Minutes): 35 Discharge Plan Discharge Items Patient Disposition: Personal Intermediate Reason For Visit: SYNCOPE,ORTHOSTATIC Discharge Diagnosis: orthostatic Activity: Resume your previous activity Non-emergency contact: Primary Care Provider Call non-emergency contact if: you have any medication questions Follow-up/Referrals: Lizandro Busby at [facility] [Primary Care Provider] - Diet: Regular Addtl Attending Provider Instructions: Recommend the following: -- EKG 08/12/22 shows NSR vs an ectopic atrial rhythm at 64 bpm, incomplete RBBB, and a corrected QT interval is 412 msec. -- Remain off of Forteo, consider alternative medicine for osteoporosis treatment. -- Continue gentle IVF's. -- Once patient's orthostasis resolves she may be discharged back to [facility]. Paroxysmal atrial fibrillation: Plan: Patient is back in a normal sinus rhythm. -- Continue Eliquis 2.5 mg b.i.d.. -- Continue Flecainide 100 mg b.i.d.. Pending Studies at Discharge: No Stand-Alone Forms: [facility] [place], Smoking Cessation Skilled Items Patient informed of condition?: No DNR: Yes Discharge Level of Care: Skilled Communicable Disease: No Discharge Prognosis: Stable Lines: None Urinary Catheter: No Medications and DC Order Prescriptions: New flecainide 100 mg Tablet 100 mg PO Q12H Qty: 60 0RF flecainide 100 mg tablet 100 mg PO Q12H Qty: 60 0RF Continued PreserVision AREDS-2 250-90-40-1 mg Capsule 12 cap PO DAILY Robitussin Cough-Chest Lewis DM 10-200 mg Capsule 1 tab-cap PO Q6 PRN (Reason: Cough) melatonin 3 mg Tablet 3 mg PO HS PRN (Reason: Insomnia) acetaminophen 325 mg Tablet 650 mg PO Q4 MDD 3g PRN (Reason: Fever Or Pain) Qty: 30 0RF escitalopram oxalate 10 mg tablet 10 mg PO DAILY Qty: 30 0RF memantine 10 mg tablet 10 mg PO DAILY Qty: 90 1RF mometasone 220 mcg/ actuation (120) aerosol powdr breath activated 1 puffs INH BID Qty: 3 2RF donepezil 23 mg tablet 23 mg PO DAILY 90 Days Qty: 90 1RF Eliquis 2.5 mg tablet 2.5 mg PO BID Qty: 60 0RF Discontinued flecainide 50 mg tablet 50 mg PO Q12H Qty: 180 3RF Forteo 20 mcg/dose (600mcg/2.4mL) pen injector 20 mcg SUBCUT DAILY Discharge Orders: Discharge Order (Routine); Ordered 08/13/22 Ordered By: Mil Montgomery Admission Data Admit Date/Time: 08/10/22 16:34 Attending Provider: Mil Montgomery Admit Provider: Be Quan Primary Care Provider: Lizandro Busby [facility] Other Providers: Be Quan ; Homer Daugherty Other Interventions: Discharge Summary Assessment (RN) Last Done: 08/13/22 13:45 Coding Level of Care Code HOSP INP/OBS DISCH >30 MIN Diagnoses Syncopal episodes R55 Orthostatic hypotension I95.1 Paroxysmal atrial fibrillation I48.0 Dementia F03.90 Asthma J45.909
== END 2022-08-13 14:00 | disposition home or self-care (01) ==
LOC: 2S 13:30 → ED 13:30 → SUATTDRO 16:34 → 2S 17:27
DX: Z79.899 Other long term (current) drug therapy; Z88.8 Allergy status to other drugs, medicaments and biological substances; G30.9 Alzheimer's disease, unspecified; R55 Syncope and collapse; Z66 Do not resuscitate; J45.909 Unspecified asthma, uncomplicated; I95.1 Orthostatic hypotension; I48.0 Paroxysmal atrial fibrillation; F02.80 Dementia in other diseases classified elsewhere, unspecified severity, without behavioral disturbance, psychotic disturbance, mood disturbance, and anxiety; Z88.1 Allergy status to other antibiotic agents; R79.89 Other specified abnormal findings of blood chemistry; Z79.01 Long term (current) use of anticoagulants; Z87.891 Personal history of nicotine dependence

== ENCOUNTER 2022-10-03 11:01 | Inpatient (IN) ==
--- NOTE | 2022-10-03 11:19 | Emergency Department Note ---
History of Present Illness General Chief complaint: Syncope Stated complaint: SYNCOPE Time Seen by Provider: 10/03/22 11:10 Source: patient, family (I talked to her who witnessed the event and was at bedside as), RN notes reviewed and old records reviewed (I have reviewed the records sent over from [facility]) Mode of arrival: EMS Limitations: other (Baseline dementia/memory issues) History of Present Illness This patient comes in after having a witnessed brief syncopal episode. She has dementia and is in the memory unit. She was being transfer from the toilet and had a brief 10-second episode of syncope. She denies any current complaints and is asking why she is here. She denies shortness of breath or chest pain headache change in vision numbness or weakness. She answers most questions appropriately but has memory issues. There is no reported trauma. She was brought in by EMS and had stable vital signs along the way. Apparently they [facility] at the [facility] and they were unremarkable. Reviewing her record she is a DO NOT RESUSCITATE according to the [facility] notes Home Medications Medication Instructions Recorded Confirmed Type dextromethorphan-guaifenesin 10 1 tab-cap PO Q6 PRN Cough 06/14/22 10/03/22 History mg-200 mg capsule (Robitussin Cough-Chest Congestion DM) vit C 250 mg-vit E 90 mg-zinc 40 12 cap PO DAILY 06/14/22 10/03/22 History mg-copper 1 [id number] capsule (PreserVision AREDS-2) melatonin 3 mg tablet 3 mg PO HS PRN Insomnia 08/10/22 10/03/22 History acetaminophen 325 mg tablet 650 mg PO Q4 PRN Fever Or Pain #30 08/13/22 10/03/22 Rx tabs apixaban 2.5 mg tablet (Eliquis) 2.5 mg PO BID #60 tabs 08/13/22 10/03/22 Rx donepezil 23 mg tablet 23 mg PO DAILY 90 days #90 tabs 08/13/22 10/03/22 Rx escitalopram oxalate 10 mg tablet 10 mg PO DAILY #30 tabs 08/13/22 10/03/22 Rx flecainide 100 mg tablet 100 mg PO Q12H #60 tabs 08/13/22 10/03/22 Rx memantine 10 mg tablet 10 mg PO DAILY #90 tabs 08/13/22 10/03/22 Rx mometasone 220 mcg/actuation(120 1 puffs inhalation BID #3 ea 08/13/22 10/03/22 Rx doses)breath activated powder inhaler Allergies Allergy/AdvReac Type Severity Reaction Status Date / Time betamethasone Allergy Unknown unkn Verified 06/14/22 01:26 erythromycin base Allergy Unknown UNKNOWN Verified 06/14/22 01:26 esomeprazole Allergy Unknown UNKNOWN Verified 06/14/22 01:26 propyl gallate Allergy Unknown unkn Verified 06/14/22 01:26 pseudoephedrine Allergy Unknown UNKNOWN Verified 06/14/22 01:26 formaldehyde Allergy Unknown Verified 06/14/22 01:26 albuterol AdvReac Mild RAPID Verified 06/14/22 01:26 HEART RATE Past Med/Surg History Medical History AF (paroxysmal atrial fibrillation) Aortic insufficiency ARF (acute renal failure) (2018) Arthritis Asthma Cervical pain Chronic back pain Dementia Diastolic dysfunction Epidermal inclusion cyst Fracture of multiple pubic rami Fracture occcurred 06/13/2022 Fracture, thoracic vertebra (~06/13/22) Fracture occurred 06/13/2022 GERD without esophagitis History of pneumonia Lumbar radiculopathy Mitral regurgitation Osteoporosis Pulmonary nodules Ribs, multiple fractures Right hip pain Sacroiliitis Scoliosis Shoulder pain, right Thyroid nodule Urinary incontinence Vitamin D deficiency Surgical History S/P bilateral cataract extraction S/P bilateral salpingo-oophorectomy S/P breast biopsy S/P colonoscopy S/P dilation and curettage S/P tooth extraction S/P tubal ligation Family History Father Myocardial infarction Congestive heart failure Mother Dementia Daughter Breast cancer Ovarian cancer Other No significant family history Denies family history of Prostate cancer Colorectal cancer Social History Smoking Status: Never smoker Second Hand Exposure: No; Do You Dip or Chew Tobacco: No; Tobacco Cessation Education Requested by Patient: No Hx Alcohol Use: No Hx Substance Use: No Preferred Language: Lithuanian Communication Ability: Impaired Visual Impairment: No Limitations Hearing Ability: Normal 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: No Beliefs That Will Affect Care: None marital status: Current Living Situation: Sp[facility] and Personal Care Facility [facility] status: retired Other Information That Helps Us Care for You: No Feels Safe at Home: Yes Safety Concerns: Feels Safe At This Time Seatbelt Use: always Sexual Activity: has been sexually active, but not for at least 12 months Assistive Devices: Glasses, Walker and Wheelchair Review of Systems A total of 10 systems reviewed and were otherwise negative Physical Exam Vital Signs Vital Signs - 24 hr 10/03/22 11:08 10/03/22 11:11 10/03/22 12:13 Temperature 36.6 C Temperature Source Oral Pulse Rate 53 L 57 L Pulse Rate [Apical] Respiratory Rate 16 Respiratory Effort / Characteristics Non-Labored Spontaneous Respiratory Pattern Regular Blood Pressure 136/63 Blood Pressure [Right Arm] Blood Pressure Mean 87 Blood Pressure Mean [Right Arm] Pulse Oximetry 98 98 Oxygen Delivery Method Room Air Room Air Sepsis Recent Fever Within 48 Hours No Sepsis New/Unexplained Change in Mental Status No Sepsis Action Taken by Nursing No Action Required 10/03/22 13:10 Temperature Temperature Source Pulse Rate Pulse Rate [Apical] 60 Respiratory Rate 13 Respiratory Effort / Characteristics Non-Labored Spontaneous Respiratory Pattern Regular Blood Pressure Blood Pressure [Right Arm] 169/82 H Blood Pressure Mean Blood Pressure Mean [Right Arm] 111 Pulse Oximetry 99 Oxygen Delivery Method Room Air Sepsis Recent Fever Within 48 Hours Sepsis New/Unexplained Change in Mental Status Sepsis Action Taken by Nursing General: Well developed well nourished older female who is awake and alert. She has obvious memory issues but answers questions appropriately with poor memory and appears in no acute distress, breathing comfortably on room air. Normal speech. No facial asymmetry or droop. HEENT: Normal cephalic atraumatic. Pupils are equal round and reactive to light. Extraocular movements are intact. Oropharynx is pink with moist mucous membranes. No swelling of the mouth lips or tongue. Neck: Supple with a midline trachea. No meningeal signs or stiffness, no JVD or bruits. No Stridor. Chest: Clear to auscultation bilaterally. No wheezes or rhonchi. No increased work of breathing. Heart: Regular rate and rhythm without murmurs or gallops. Abdomen: Soft nontender, nondistended without rebound guarding or rigidity. Extremities: No cyanosis clubbing or edema. No calf tenderness or assymetry Spine/Back. Non tender to palpation. No CVA tenderness Skin: Good turgor without rashes. Neurologic exam: Cranial nerves two through 12 are intact. Motor and sensation are intact and symmetrical throughout. Procedures Free Text Procedures The patient was placed in observation status at 11:11 10/03/2022. For cardiac evaluation for syncopal episode. During the time in observation, the patient was frequently reassessed and received she received continuous cardiac monitoring, EKG x2 and troponin x2. On Final reassessment the patient remained stable and her work-up thus far is unremarkable but due to the concern for etiology of her syncopal episode and the patient will be admitted/observed in the hospital at this time. A total observation time of 2 hours and 10 minutes Course Administered Medications Discontinued Medications Sodium Chloride (Nss) 250 mls @ 999 mls/hr IV .Q16M ONE Stop: 10/03/22 11:40 Last Infusion: 10/03/22 12:30 Dose: 0 mls/hr Documented By: Admin: 10/03/22 11:58 Dose: 999 mls/hr Documented By: Medical Decision Making Differential Diagnosis Syncope, arrhythmia, anemia, dehydration, electrolyte or metabolic abnormality, neurologic disease, infection Medical Records Attestation: I reviewed the patient's medical records. Home Medications Current Medication List: was personally reviewed by me Laboratory Data Attestation: I reviewed the patient's lab results. 10/03/22 11:51 10/03/22 11:51 Lab Results 10/03/22 10/03/22 10/03/22 Range/Units 11:51 11:51 11:51 WBC 10.47 (4.8-10.8) K/ul RBC 4.26 (4.20-5.40) M/uL Hgb 13.7 (12.0-16.0) g/dl Hct 42.2 (37.0-47.0) % MCV 99.1 (80.0-100.0) fL MCH 32.2 (25.0-34.0) pg MCHC 32.5 (32.0-36.0) g/dL RDW Std Deviation 51.3 H (36.4-46.3) fL RDW Coeff of Indira 13.9 (11.5-14.5) % Plt Count 212 (130-400) K/uL MPV 9.8 (9.4-12.4) fL Immature Gran % (Auto) 0.5 % Neut % (Auto) 82.2 % Lymph % (Auto) 10.3 % [place] % (Auto) 6.1 % Eos % (Auto) 0.4 % Baso % (Auto) 0.5 % Neut # (Auto) 8.61 H (1.40-6.50) K/uL Lymph # (Auto) 1.08 L (1.2-3.4) K/uL [place] # (Auto) 0.64 H (0.11-0.59) K/uL Eos # (Auto) 0.04 (0-0.50) K/uL Baso # (Auto) 0.05 (0-0.2) K/uL Immature Gran # (Auto) 0.05 (0.01-0.20) K/uL PT 11.7 (9.0-12.0) Seconds INR 1.1 (0.9-1.1) APTT 26.9 (21.0-31.0) Seconds PTT Ratio 1.0 Sodium 140 (136-145) mmol/L Potassium 4.2 (3.5-5.1) mmol/L Chloride 107 (98-107) mmol/L Carbon Dioxide 29 (21-32) mmol/L Anion Gap 4 (3-11) BUN 17 (6-23) mg/dl Creatinine 0.86 (0.6-1.2) mg/dl Est Cr Clr Drug Dosing 36.3 ml/min Est GFR ( Amer) 69.4 ml/min Est GFR (Non-Af Amer) 59.9 ml/min BUN/Creatinine Ratio 19.8 (10-20) Glucose 107 H (70-99(Fasting)) mg/dl Calcium 9.7 (8.5-10.1) mg/dl Total Bilirubin 0.4 (0.2-1.0) mg/dl AST 18 (13-39) U/L ALT 16 (7-52) U/L Alkaline Phosphatase 153 H (34-104) U/L Troponin I High Sens 5.7 (0-14) pg/ml Total Protein 7.1 (6.0-8.3) gm/dl Albumin 4.1 (3.4-5.0) gm/dl Globulin 3.0 (2.5-4.0) gm/dl Albumin/Globulin Ratio 1.4 (0.9-2) Lipase 58 (11-82) U/L Imaging Data Attestation: I personally reviewed and interpreted this imaging study as follows: My Impression: Chest x-raycardiomegaly but no acute infiltrate, failure, pneumothorax seen. Radiologist's Impression: Chest X-Ray 10/03/22 11:11 SINGLE VIEW CHEST CLINICAL HISTORY: Atypical chest pain. FINDINGS: An AP, portable, upright chest radiograph is compared to study dated 08/10/2022 and correlated with chest CT dated 06/13/2022. The heart is enlarged noting atherosclerotic calcification of the thoracic aorta. The pulmonary vasculature is noncongested. There is chronic interstitial thickening and mild elevation of the right hemidiaphragm. Scarring/atelectasis is noted at the lung bases. No airspace consolidation or large pleural effusion is identified. No pneumothorax is seen. The skeletal structures are osteopenic. There are chronic social left-sided rib fractures. Arthritic change is noted in the shoulders. Superior subluxation of the left humeral head suggests chronic rotator cuff injury. IMPRESSION: Cardiomegaly with no acute cardiopulmonary abnormality identified. ACT 112: Negative or not required by law. Electronically signed by: Tommy Ndiaye M.D. 10/03/2022 11:36 AM ECG Data Attestation: I personally reviewed and interpreted this ECG as follows: Indication: + syncope Rate (beats per minute): 53 Rhythm: + sinus bradycardia ECG Intervals/blocks: + Normal QRS, + Normal QT and + Normal OR ECG [place]: + Left axis deviation ECG ST segments: + Normal ST segments ECG Findings: + Other (low voltage); no PACs or no PVCs Comparison ECG Date: from (08/12/22) Change: no significant change Additional Comments: EKG #2: Sinus bradycardia at a rate of 57 poor R wave progression no acute ischemic changes no significant change compared to EKG #1 MDM Narrative This patient is an 87-year-old female who has a history of dementia comes in after having a brief witnessed syncopal episode, there is no trauma. She had stable vital signs and has no complaints and does not even recall the episode. She has a normal neurologic exam. She appears in no distress she is afebrile. IV access established was placed on a monitoring tech and EKG and multiple blood testing was obtained. She was reassessed frequently. EKG #1 shows no ischemic changes compared to old and no significant arrhythmia. She does have a history of A-fib but is not in A-fib at present. In reviewing her old records, she was admitted with a syncopal episode in July. It was ultimately thought to be related to orthostatics. She does not appear to be orthostatic here but I did give her a 250 cc fluid bolus IV. Chest x-ray shows no acute infiltrate, failure, pneumothorax seen. She was placed in ED observation and EKG #2 shows no change compared EKG #1 she has 2 negative troponins. She has no significant electrolyte or metabolic abnormalities. she looks well however. I talked to the who witnessed the event and he is concerned that she did have a syncopal event she had this in July which was thought to be related to one of her medications. She has no other history of syncopal events. She does not appear to be orthostatic or dehydrated thus far. She will be admitted/observed for further inpatient treatment evaluation I discussed the case with Dr. Quna from [facility] hospitalist group. He saw her and will admit/observe her for these measures. Continuous cardiac monitoring: Orders placed in EMR for continuous cart monitor. Upon my interpretation the patient was noted to be in sinus bradycardia with a rate of 55. Impression & Plan Syncope, pigs feet cleaner (current) use of antithrombotics/antiplatelets, Dementia, History of atrial fibrillation Discharge Plan Visit Data Chief Complaint: Syncope Stated Complaint: SYNCOPE ED Provider: Rigo [place] Discharge Problem: Syncope, shelter (current) use of antithrombotics/antiplatelets, Dementia, History of atrial fibrillation Patient Disposition: Admitted As Inpatient Discharge Instructions Interventions: ED Discharge Assessment Last Done: 10/03/22 14:52
[2022-10-03] MEDS ORDERED: SODIUM CHLORIDE 0.9% 250 ML IV ONE (11:25)
--- NOTE | 2022-10-03 11:37 | XRay Report ---
SINGLE VIEW CHEST CLINICAL HISTORY: Atypical chest pain. FINDINGS: An AP, portable, upright chest radiograph is compared to study dated 08/10/2022 and correlat ed with chest CT dated 06/13/2022. The heart is enlarged noting atherosclerotic calcification of the thoracic aorta. The pulmonary vasculature is noncongested. There is chronic interstitial thickening a nd mild elevation of the right hemidiaphragm. Scarring/atelectasis is noted at the lung bases. No air space consolidation or large pleural effusion is identified. No pneumothorax is seen. The skeletal st ructures are osteopenic. There are chronic social left-sided rib fractures. Arthritic change is noted in the shoulders. Superior subluxation of the left humeral head suggests chronic rotator cuff injury . IMPRESSION: Cardiomegaly with no acute cardiopulmonary abnormality identified. ACT 112: Negative or not required by law. Electronically signed by: Tommy Ndiaye M.D. 10/03/2022 11:36 AM
[2022-10-03 12:15] LABS: Basophils # (auto) 0.05 K/uL (0-0.2); Basophils % (auto) 0.5 %; Eosinophils # (auto) 0.04 K/uL (0-0.50); Eosinophils % (auto) 0.4 %; Hematocrit (blood only) 42.2 % (37.0-47.0); Hemoglobin 13.7 g/dl (12.0-16.0); Immature Granulocytes # (auto) 0.05 K/uL (0.01-0.20); Immature Granulocytes % (auto) 0.5 %; Lymphocytes # (auto) 1.08 K/uL (1.2-3.4); Lymphocytes % (auto) 10.3 %; Mean Corpuscular Hemoglobin 32.2 pg (25.0-34.0); Mean Corpuscular Hgb Conc 32.5 g/dL (32.0-36.0); Mean Corpuscular Volume 99.1 fL (80.0-100.0); Mean Platelet Volume 9.8 fL (9.4-12.4); Monocytes # (auto) 0.64 K/uL (0.11-0.59); Monocytes % (auto) 6.1 %; Neutrophils # (auto) 8.61 K/uL (1.40-6.50); Neutrophils % (auto) 82.2 %; Platelet Count 212 K/uL (130-400); RDW Coefficient of Variation 13.9 % (11.5-14.5); RDW Standard Deviation 51.3 fL (36.4-46.3); Red Blood Count 4.26 M/uL (4.20-5.40); White Blood Count 10.47 K/ul (4.8-10.8)
[2022-10-03 12:31] LABS: Albumin Globulin Ratio 1.4 (0.9-2); Albumin Level 4.1 gm/dl (3.4-5.0); BUN Creatinine Ratio 19.8 (10-20); Bilirubin,Total 0.4 mg/dl (0.2-1.0); Calcium 9.7 mg/dl (8.5-10.1); Creatinine Clr Calc Pharmacy 36.3 ml/min; Est GFR (African American) 69.4 ml/min; Est GFR (Non-African American) 59.9 ml/min; Potassium 4.2 mmol/L (3.5-5.1); Total Protein 7.1 gm/dl (6.0-8.3)
[2022-10-03 12:36] LABS: Troponin I High Sensitivity 5.7 pg/ml (0-14)
[2022-10-03 12:44] LABS: INR 1.1 (0.9-1.1); Partial Thromboplastin Time 26.9 Seconds (21.0-31.0); Prothrombin Time 11.7 Seconds (9.0-12.0)
--- NOTE | 2022-10-03 13:25 | History & Physical Report ---
Date of Service October 03, 2022 Assessment & Plan (1) Syncope: Plan: Appear to be exacerbated by vagal manouvres in the setting of sinus bradycardia while on flecainide. Recommend discontinuation of donepezil at this stage to help with bradycardia and continuing with increased dose of flecainide increased last admission If still having syncopal episode can likely reduce flecainide back to 50mg PO BID as she went into a. fib likely due to Forteo and orthostasis last admission. Monitor on telemetry for recurrence and AV alissa blocks. (2) Paroxysmal atrial fibrillation: Plan: Continue anticoagulation with apixaban Continue flecainide 100mg PO BID (3) Dementia: Plan: Continue (4) Asthma: History of Present Illness Chief Complaint: Syncope Primary Care Provider: Qi william Lemoyne Pavithra Newman is an 87 year old female who resides at memory care unit who presents to the ER with syncope. Unable to get any history from the patient due to dementia. History obtained from at bedside. No syncopal event up until today since last admission for syncope due to Forteo and orthostasis in July. Today she briefly lost consciousness for 5-10 seconds and fell to the floor while getting up to use her walker. Unknown if dizzy prior to falling. Occurred again when staff tried to move her from the bathroom therefore decided to bring her to the ER. In the ER EKG showed sinus bradycardia @ 57 bpm. She was referred to medicine for admission and ongoing management of syncope. Allergies Allergy/AdvReac Type Severity Reaction Status Date / Time betamethasone Allergy Unknown unkn Verified 06/14/22 01:26 erythromycin base Allergy Unknown UNKNOWN Verified 06/14/22 01:26 esomeprazole Allergy Unknown UNKNOWN Verified 06/14/22 01:26 propyl gallate Allergy Unknown unkn Verified 06/14/22 01:26 pseudoephedrine Allergy Unknown UNKNOWN Verified 06/14/22 01:26 formaldehyde Allergy Unknown Verified 06/14/22 01:26 albuterol AdvReac Mild RAPID Verified 06/14/22 01:26 HEART RATE Home Medications Medication Instructions Recorded Confirmed Type dextromethorphan-guaifenesin 10 1 tab-cap PO Q6 PRN Cough 06/14/22 10/03/22 History mg-200 mg capsule (Robitussin Cough-Chest Congestion DM) vit C 250 mg-vit E 90 mg-zinc 40 12 cap PO DAILY 06/14/22 10/03/22 History mg-copper 1 hb-jldevr-xmrfdu capsule (PreserVision AREDS-2) melatonin 3 mg tablet 3 mg PO HS PRN Insomnia 08/10/22 10/03/22 History acetaminophen 325 mg tablet 650 mg PO Q4 PRN Fever Or Pain #30 08/13/22 10/03/22 Rx tabs apixaban 2.5 mg tablet (Eliquis) 2.5 mg PO BID #60 tabs 08/13/22 10/03/22 Rx donepezil 23 mg tablet 23 mg PO DAILY 90 days #90 tabs 08/13/22 10/03/22 Rx escitalopram oxalate 10 mg tablet 10 mg PO DAILY #30 tabs 08/13/22 10/03/22 Rx flecainide 100 mg tablet 100 mg PO Q12H #60 tabs 08/13/22 10/03/22 Rx memantine 10 mg tablet 10 mg PO DAILY #90 tabs 08/13/22 10/03/22 Rx mometasone 220 mcg/actuation(120 1 puffs inhalation BID #3 ea 08/13/22 10/03/22 Rx doses)breath activated powder inhaler Past Med/Surg History Medical History AF (paroxysmal atrial fibrillation) Aortic insufficiency ARF (acute renal failure) (2018) Arthritis Asthma Cervical pain Chronic back pain Dementia Diastolic dysfunction Epidermal inclusion cyst Fracture of multiple pubic rami Fracture occcurred 06/13/2022 Fracture, thoracic vertebra (~06/13/22) Fracture occurred 06/13/2022 GERD without esophagitis History of pneumonia Lumbar radiculopathy Mitral regurgitation Osteoporosis Pulmonary nodules Ribs, multiple fractures Right hip pain Sacroiliitis Scoliosis Shoulder pain, right Thyroid nodule Urinary incontinence Vitamin D deficiency Surgical History S/P bilateral cataract extraction S/P bilateral salpingo-oophorectomy S/P breast biopsy S/P colonoscopy S/P dilation and curettage S/P tooth extraction S/P tubal ligation Family History Father Myocardial infarction Congestive heart failure Mother Dementia Daughter Breast cancer Ovarian cancer Other No significant family history Denies family history of Prostate cancer Colorectal cancer Social History Smoking Status: Never smoker Second Hand Exposure: No; Hx Alcohol Use: No Hx Substance Use: No Preferred Language: Georgian Communication Ability: Impaired Visual Impairment: No Limitations Hearing Ability: Normal Drafter Electromechanical Required: No Beliefs That Will Affect Care: None marital status: Current Living Situation: Spouse and Personal Care Facility Current Living Situation Comment: Memory unit at [facility] current occupational status: retired Feels Safe at Home: Yes Seatbelt Use: always Sexual Activity: has been sexually active, but not for at least 12 months Assistive Devices: Glasses, Walker and Wheelchair Review of Systems Review of Systems: All systems reviewed & are unremarkable except as noted in HPI & below Physical Exam Constitutional: well developed; + not well nourished and no acute distress Eyes: PERRL, conjunctivae normal, anicteric sclerae Respiratory: normal respiratory effort, lungs clear to auscultation Cardiovascular: RRR, no murmur, no edema Gastrointestinal (Abdomen): normal bowel sounds, soft, nontender, no hepatosplenomegaly Musculoskeletal: no cyanosis or clubbing, extremities motor strength 5/5 Skin: no rashes, warm and dry Neurologic: moves all extremities and awake; not confused Speech / Cognition: normal speech Motor/Sensory: no pronator drift Psychiatric: Orientation: alert, oriented to person and oriented to time (year only); + not oriented to place Results & Data Results & Data ([facility]) Vital Signs (Past 12 Hours) Vital Signs Temp Pulse Pulse Resp BP BP Pulse Ox 10/03/22 13:10 60 13 169/82 H 99 10/03/22 12:13 57 L 10/03/22 11:11 98 10/03/22 11:08 36.6 C 53 L 16 136/63 98 O2 Del Method 10/03/22 13:10 Room Air 10/03/22 12:13 10/03/22 11:11 Room Air 10/03/22 11:08 Room Air Laboratory Results Abnormal lab results 10/03/22 10/03/22 Range/Units 11:51 11:51 RDW Std Deviation 51.3 H (36.4-46.3) fL Neut # (Auto) 8.61 H (1.40-6.50) K/uL Lymph # (Auto) 1.08 L (1.2-3.4) K/uL [place] # (Auto) 0.64 H (0.11-0.59) K/uL Glucose 107 H (70-99(Fasting)) mg/dl Alkaline Phosphatase 153 H (34-104) U/L Diagnostic Findings SINGLE VIEW CHEST CLINICAL HISTORY: Atypical chest pain. FINDINGS: An AP, portable, upright chest radiograph is compared to study dated 08/10/2022 and correlated with chest CT dated 06/13/2022. The heart is enlarged noting atherosclerotic calcification of the thoracic aorta. The pulmonary vasculature is noncongested. There is chronic interstitial thickening and mild elevation of the right hemidiaphragm. Scarring/atelectasis is noted at the lung bases. No airspace consolidation or large pleural effusion is identified. No pneumothorax is seen. The skeletal structures are osteopenic. There are chronic social left-sided rib fractures. Arthritic change is noted in the shoulders. Superior subluxation of the left humeral head suggests chronic rotator cuff injury. IMPRESSION: Cardiomegaly with no acute cardiopulmonary abnormality identified. Medications Administered ER Medications Given: NSS 250ml bolus ECG Indication: syncope Rate (beats per minute): 57 Rhythm: sinus bradycardia Findings: no acute ischemic change Comparison ECG Date: from (October 03, 2022) Change: no significant change Code Status & VTE Plan Code Status DNR/DNI VTE Prophylaxis Plan VTE Prophylaxis will be ordered: Yes PG Care Time/CCT Total # of Minutes Spent Total Time Spent with Patient: Total time spent is greater than 50% in coordination of care (as documented) at patient's floor/unit and/or counseling patient: Coding Level of Care Code 02113 INT INP/OBS CARE 2/55MIN Diagnoses Syncope R55 Paroxysmal atrial fibrillation I48.0 Dementia F03.90 Asthma J45.909
[2022-10-03] MEDS ORDERED: ACETAMINOPHEN 325 MG TAB PO PRN (14:51)
[2022-10-03] MEDS: MELATONIN 3 MG TAB PO PRN (21:32)
[2022-10-03] MEDS: APIXABAN 2.5 MG TAB PO SCH (21:33)
[2022-10-03] MEDS: FLECAINIDE ACETATE 100 MG TABLET PO SCH (21:34)
[2022-10-04] MEDS: APIXABAN 2.5 MG TAB PO SCH ×2 (07:44→21:09)
[2022-10-04] MEDS: FLECAINIDE ACETATE 100 MG TABLET PO SCH ×2 (07:44→21:09)
[2022-10-04] MEDS: MEMANTINE HCL 10 MG TAB PO SCH (07:44)
[2022-10-04] MEDS: ESCITALOPRAM OXALATE 10 MG TAB PO SCH (07:44)
[2022-10-04] MEDS: FLUTICASONE FUROATE 100MCG 14 PUFFS/INHALER INH SCH (07:46)
--- NOTE | 2022-10-04 09:20 | Hospitalist Progress Note ---
Date of Service October 04, 2022 Assessment & Plan (1) Syncope: Plan: Appear to be exacerbated by vagal manoeuvres in the setting of sinus bradycardia. Also with positive orthostatic vitals and reports per self/ of not drinking much water at home. With improvement in HR today with discontinuation of donepezil, decreasing flecainide back down to 50mg BID, and NSS 1L bolus. Monitor on telemetry for recurrence, evidence of AFIB RVR, and AV alissa blocks. Orthostatic vitals tomorrow AM. (2) Paroxysmal atrial fibrillation: Plan: Continue anticoagulation with apixaban Continue flecainide at decreased dose 50mg PO BID Some element of sick sinus syndrome appears to be developing, may need eval for pacer in the future if having AFib RVR requiring flecainide doses that are causing bradycardia; defer to Cardiology (3) Dementia: Plan: Continue delirium precautions, memantine, Celexa (4) Asthma: Plan: Cont fluticasone (5) Ankle pain: Plan: Bilateral, without ecchymosis or notable swelling to either ankle, no known falls, has had complaints of ankle pain in previous visits to ER Continue to monitor for swelling/development of ecchymosis Tylenol scheduled for ankle pain PT and OT ordered Admission and Anticipated Discharge Date Admission Date: October 03, 2022 Subjective Still feeling "run down" today, tired mostly, no complaints of lightheadedness, chest pain, SOB, nausea Review of Systems Review of Systems: All systems reviewed & are unremarkable except as noted in Subjective Physical Exam Constitutional: WD/WN, vitals as above Respiratory: normal respiratory effort, lungs clear to auscultation Cardiovascular: RRR, no murmur, no edema Gastrointestinal (Abdomen): normal bowel sounds, soft, nontender, no hepatosplenomegaly Skin: no rashes, warm and dry Psychiatric: alert and oriented to self and situation (in the hospital due to feeling "run down") Results & Data Results & [facility] ([facility]) Vital Signs (Past 12 Hours) Vital Signs Temp Pulse Pulse Resp BP BP Pulse Ox 10/04/22 07:38 57 L 10/04/22 07:23 36.9 C 53 L 18 122/57 L 96 10/04/22 03:04 36.9 C 57 L 16 125/67 95 10/04/22 00:51 65 10/03/22 23:00 36.8 C 62 18 121/64 97 O2 Del Method 10/04/22 07:38 10/04/22 07:23 Room Air 10/04/22 03:04 Room Air 10/04/22 00:51 10/03/22 23:00 Room Air PG Care Time/CCT Total # of Minutes Spent Total Time Spent with Patient: Total time spent is greater than 50% in coordination of care (as documented) at patient's floor/unit and/or counseling patient: Coding Level of Care Code 79677 SUB INP/OBS CARE 2/35MIN Diagnoses Syncope R55 Syncope type: unspecified Paroxysmal atrial fibrillation I48.0 Dementia F03.90 Asthma J45.909 Ankle pain M25.579 (1) Syncope Syncope type: unspecified Qualified Code(s): R55 - Syncope and collapse
--- NOTE | 2022-10-04 09:23 | Electrocardiogram Report ---
Test Reason : Blood Pressure : / mmHG Vent. Rate : 053 BPM Atrial Rate : 053 BPM P-R Int : 174 ms QRS Dur : 090 ms QT Int : 438 ms P-R-T Axes : 088 -37 060 degrees QTc Int : 410 ms Sinus bradycardia Left axis deviation Low voltage QRS RSR' or QR pattern in V1 suggests right ventricular conduction delay Cannot rule out Anterior infarct (cited on or before 10-AUG-2022) Abnormal ECG When compared with ECG of 12-AUG-2022 10:26, Questionable change in initial forces of Anterolateral leads Confirmed by Homer Daugherty ([id number]) on 10/04/2022 9:22:57 AM Referred By: Confirmed By:Homer Daugherty
--- NOTE | 2022-10-04 09:26 | Electrocardiogram Report ---
Test Reason : Blood Pressure : / mmHG Vent. Rate : 057 BPM Atrial Rate : 057 BPM P-R Int : 182 ms QRS Dur : 088 ms QT Int : 458 ms P-R-T Axes : 084 -27 045 degrees QTc Int : 445 ms Sinus bradycardia Anteroseptal infarct (cited on or before 10-AUG-2022) Abnormal ECG When compared with ECG of 03-OCT-2022 11:12, (unconfirmed) No significant change was found Confirmed by Homer Daugherty ([id number]) on 10/04/2022 9:26:10 AM Referred By: Lizandro william [facility] Confirmed By:Homer Daugherty
[2022-10-04] MEDS ORDERED: SODIUM CHLORIDE 0.9% 1000ML 1,000 ML IV ONE (10:31)
[2022-10-04] MEDS: ACETAMINOPHEN 325 MG TAB PO SCH (21:08)
[2022-10-04] MEDS: MELATONIN 3 MG TAB PO PRN (21:09)
[2022-10-05] MEDS: ACETAMINOPHEN 325 MG TAB PO SCH ×3 (06:29→19:39)
--- NOTE | 2022-10-05 07:17 | Hospitalist Progress Note ---
Date of Service October 05, 2022 Assessment & Plan (1) Syncope: Plan: Appear to be exacerbated by vagal manoeuvres in the setting of sinus bradycardia. With ongoing positive orthostatic vitals (BP 80s systolic with standing today) and reports per self/ of not drinking much water at home. Still with bradycardia this morning, though in last 24 hours has had improvement in HR overall. Will start midodrine 2.5mg TID for BP support, overall plan for discharge home if symptoms and vitals continue to improve. Monitor on telemetry for recurrence, evidence of AFIB RVR, and AV alissa blocks. (2) Paroxysmal atrial fibrillation: Plan: Continue anticoagulation with apixaban Continue flecainide at decreased dose 50mg PO BID Some element of sick sinus syndrome appears to be developing, may need eval for pacer in the future if having AFib RVR requiring flecainide doses that are causing bradycardia; defer to Cardiology (3) Dementia: Plan: Continue delirium precautions, memantine, Celexa (4) Asthma: Plan: Cont fluticasone (5) Ankle pain: Plan: Reported yesterday, today no complaints of ankle pain Continue to monitor for swelling/development of ecchymosis Tylenol scheduled, continue PT and OT evaluated patient, recommend return to facility with therapy there on discharge Admission and Anticipated Discharge Date Admission Date: October 03, 2022 Subjective No overnight events, normal HR readings overnight. Still orthostatic today despite IV fluids. No complaints including no shortness of breath, chest pain, lightheadedness at time of my evaluation. Review of Systems Review of Systems: All systems reviewed & are unremarkable except as noted in Subjective Physical Exam Constitutional: WD/WN, vitals as above Respiratory: normal respiratory effort, lungs clear to auscultation Cardiovascular: RRR, no murmur, no edema Gastrointestinal (Abdomen): normal bowel sounds, soft, nontender, no hepatosplenomegaly Skin: no rashes, warm and dry Psychiatric: alert and oriented to self Results & Data Results & Data ([facility]) Vital Signs (Past 12 Hours) Vital Signs Temp Pulse Pulse Resp BP Pulse Ox O2 Del Method 10/04/22 19:00 Room Air 10/05/22 04:00 36.6 C 53 L 18 119/69 96 Room Air 10/05/22 01:00 64 10/04/22 23:08 36.9 C 62 18 110/64 96 Room Air 10/04/22 19:00 36.7 C 68 19 174/74 H 93 Room Air PG Care Time/CCT Total # of Minutes Spent Total Time Spent with Patient: Total time spent is greater than 50% in coordination of care (as documented) at patient's floor/unit and/or counseling patient: Coding Level of Care Code 25436 SUB INP/OBS CARE 3/50MIN Diagnoses Syncope R55 Syncope type: unspecified Paroxysmal atrial fibrillation I48.0 Dementia F03.90 Asthma J45.909 Ankle pain M25.579 (1) Syncope Syncope type: unspecified Qualified Code(s): R55 - Syncope and collapse
[2022-10-05] MEDS: FLECAINIDE ACETATE 100 MG TABLET PO SCH ×2 (08:44→19:39)
[2022-10-05] MEDS: ESCITALOPRAM OXALATE 10 MG TAB PO SCH (08:45)
[2022-10-05] MEDS: FLUTICASONE FUROATE 100MCG 14 PUFFS/INHALER INH SCH (08:45)
[2022-10-05] MEDS: MEMANTINE HCL 10 MG TAB PO SCH (08:45)
[2022-10-05] MEDS: APIXABAN 2.5 MG TAB PO SCH ×2 (08:45→19:40)
[2022-10-05] MEDS ORDERED: SODIUM CHLORIDE 0.9% 1000ML 1,000 ML IV ONE (13:00)
[2022-10-05] MEDS: MIDODRINE HCL 2.5 MG TAB PO SCH (17:20)
[2022-10-05] MEDS: MELATONIN 3 MG TAB PO PRN (19:39)
[2022-10-06] MEDS: ACETAMINOPHEN 325 MG TAB PO SCH ×3 (04:31→19:37)
[2022-10-06 06:47] LABS: Hematocrit (blood only) 36.8 % (37.0-47.0); Mean Corpuscular Hemoglobin 31.9 pg (25.0-34.0); Mean Corpuscular Hgb Conc 32.6 g/dL (32.0-36.0); Mean Corpuscular Volume 97.9 fL (80.0-100.0); Mean Platelet Volume 9.9 fL (9.4-12.4); Platelet Count 207 K/uL (130-400); RDW Coefficient of Variation 13.8 % (11.5-14.5); RDW Standard Deviation 49.7 fL (36.4-46.3); Red Blood Count 3.76 M/uL (4.20-5.40); White Blood Count 7.69 K/ul (4.8-10.8)
[2022-10-06 07:15] LABS: BUN Creatinine Ratio 19.4 (10-20); Calcium 8.6 mg/dl (8.5-10.1); Creatinine Clr Calc Pharmacy 50.5 ml/min; Est GFR (African American) 92.7 ml/min; Est GFR (Non-African American) 79.9 ml/min; Potassium 4.2 mmol/L (3.5-5.1)
[2022-10-06] MEDS: ESCITALOPRAM OXALATE 10 MG TAB PO SCH (09:01)
[2022-10-06] MEDS: MEMANTINE HCL 10 MG TAB PO SCH (09:01)
[2022-10-06] MEDS: APIXABAN 2.5 MG TAB PO SCH ×2 (09:01→19:37)
[2022-10-06] MEDS: FLECAINIDE ACETATE 100 MG TABLET PO SCH (09:01)
[2022-10-06] MEDS: MIDODRINE HCL 2.5 MG TAB PO SCH ×3 (09:01→17:14)
[2022-10-06] MEDS: FLUTICASONE FUROATE 100MCG 14 PUFFS/INHALER INH SCH (09:02)
[2022-10-06] MEDS ORDERED: SODIUM CHLORIDE 0.9% 1000ML 1,000 ML IV ONE (10:00)
--- NOTE | 2022-10-06 12:05 | Hospitalist Progress Note ---
Date of Service October 06, 2022 Assessment & Plan (1) Syncope: Plan: Suspect this is secondary to orthostatic hypotension with inability to compensate with tachycardia. With ongoing positive orthostatic vitals (BP 60s systolic with standing today) and reports per self/ of not drinking much water at home. Still with bradycardia this morning, despite decreasing flecainide dose. Have stopped flecainide dosing altogether this admission, cardiology is consulted and appreciate recommendations. Case personally discussed with Dr. Jeter. Will continue midodrine 2.5mg TID for BP support, as well as give another liter NSS today, with overall plan for discharge back to facility when symptoms and vitals improved. Continue to monitor on telemetry. On my personal review, telemetry today with sinus bradycardia overnight into this morning. Compression hosiery added today. (2) Paroxysmal atrial fibrillation: Plan: Continue anticoagulation with apixaban. Some element of sick sinus syndrome evident given vacillation between admissions for A-fib during illness, but with bradycardia when on medications for rate/rhythm control. Per cardiology patient was asymptomatic during July 2022 hospitalization while in rate controlled atrial fibrillation, therefore we will hold flecainide altogether for now given bradycardia with syncope. (3) Dementia: Plan: Continue delirium precautions, memantine, Celexa. (4) Asthma: Plan: Cont fluticasone. (5) Ankle pain: Plan: Reported on 10/04, since that time has not had complaints of ankle pain Continue to monitor for swelling/development of ecchymosis, no evidence of such at this point Tylenol scheduled, continue PT and OT evaluated patient this admission, recommend return to facility with therapy there on discharge Admission and Anticipated Discharge Date Admission Date: October 05, 2022 Subjective Patient without any acute events overnight, however early this a.m. did have heart rate in the 40s asymptomatic. Also noted to have orthostatic hypotension again today with blood pressures as low as 60s systolic with standing, with rapid resolution with lying down. Patient herself denies any complaints such as chest pain, shortness of breath, lightheadedness. She denies abdominal pain or ankle pain today. Review of Systems Review of Systems: All systems reviewed & are unremarkable except as noted in Subjective Physical Exam Constitutional: WD/WN, vitals as above Respiratory: normal respiratory effort, lungs clear to auscultation Cardiovascular: RRR, no murmur, no edema Gastrointestinal (Abdomen): normal bowel sounds, soft, nontender, no hepatosplenomegaly Skin: no rashes, warm and dry Psychiatric: alert and oriented to self Results & Data Results & Data ([facility]) Vital Signs (Past 12 Hours) Vital Signs Temp Pulse Pulse Resp BP Pulse Ox O2 Del Method 10/06/22 11:11 36.8 C 63 16 138/76 98 Room Air 10/06/22 09:10 Room Air 10/06/22 07:19 36.8 C 55 L 16 129/61 98 Room Air 10/06/22 07:23 43 L 10/06/22 04:06 36.2 C L 50 L 19 101/61 96 Room Air PG Care Time/CCT Total # of Minutes Spent Total Time Spent with Patient: Total time spent is greater than 50% in coordination of care (as documented) at patient's floor/unit and/or counseling patient: Coding Level of Care Code 81785 SUB INP/OBS CARE 3/50MIN Diagnoses Syncope R55 Syncope type: unspecified Paroxysmal atrial fibrillation I48.0 Dementia F03.90 Asthma J45.909 Ankle pain M25.579 (1) Syncope Syncope type: unspecified Qualified Code(s): R55 - Syncope and collapse
--- NOTE | 2022-10-06 14:36 | Cardiology Consultation ---
Date of Consultation October 06, 2022 Assessment & Plan (1) Sinus bradycardia: (2) Paroxysmal atrial fibrillation: (3) Syncope: (4) Orthostatic hypotension: Plan ASSESSMENT/PLAN: 1. Sinus bradycardia: Given sedentary lifestyle, appears to be tolerating it well but given orthostatic blood pressure, may be beneficial to have faster heart rate to hopefully avoid syncope in the future. She was completely asymptomatic with normal heart rate while in atrial fibrillation during July 2022 hospitalization. Therefore, discontinue flecainide, which could contribute to bradycardia. Rate appears to have improved somewhat with discontinuation of heart donepezil as well. No urgent need for pacemaker at this time. 2. Paroxysmal atrial fibrillation: Was asymptomatic during July 2022 hospitalization while in rate controlled atrial fibrillation. Given bradycardia, discontinue flecainide. Discussed with her that she will likely revert to atrial fibrillation at some point but as long as she is asymptomatic and heart rate is reasonable, this may possibly offer some benefit with syncope/near syncope. Continue anticoagulation for stroke risk reduction. 3. Syncope/orthostatic hypotension: Has had documented orthostatic blood pressure drops when changing positions. Presentation consistent with orthostatic hypotension as the driving force of her syncope. Midodrine has been initiated by primary hospitalist service. Hopefully with discontinuation of flecainide, her heart rate will further increase which may help reduce orthostatic symptoms as well. Recommend that she remain well-hydrated. Consider compression stockings. 4. Disposition: Follow-up with Dr. Mills within 2 weeks of discharge. Please call with any further questions or concerns. Patient care communicated with Dr. Modi of the primary hospitalist service. Thank you for allowing me to participate in the care of your patient. Please call for any other questions or concerns. Sincerely, Elbert Jeter M.D. History of Present Illness Reason for Consultation: "Bradycardic despite flecainide decrease" Requesting Physician: Dr. Modi Attending Physician: Marie Modi, History of Present Illness Mrs. Newman is a pleasant 87-year-old female with a history significant for dementia, paroxysmal atrial fibrillation, and syncope. Her primary special inspector is Dr. Mills. She was last hospitalized in July 2022, also with syncope. She was diagnosed with orthostatic hypotension, with dramatic drop in systolic blood pressure while evaluated in the emergency department when changing positions. Forteo was discontinued at that time as it had been recently started. During that hospital stay, she was noted to be in atrial fibrillation with normal heart rate. This occurred while on chronic flecainide 50 mg twice daily. Flecainide was inc reased to 100 mg twice daily and she eventually converted to sinus rhythm before discharge. She was hospitalized on this occasion on 10/03/2022, once again with syncope. Due to her dementia, her provided the history as he was present at the bedside. She was at her usual memory facility and was laying in bed. She was sat up for a few minutes and then stood up. She lost consciousness for approximately 10 seconds. Approximately 30 minutes later, she was placed on the commode and after getting her up from the commode, she once again briefly lost consciousness. There was no report of chest pain, shortness of breath, or other symptoms. She does not recall having any chest pain or shortness of breath at other times. Her states that she had been more active prior to her July hospitalization, where she was able to use her walker to ambulate somewhat. Since then however, she has required assistance while changing positions and predominantly uses a wheelchair to move from room to room. Her admits that she does not drink much fluid to help remain hydrated. During this hospital stay, she was noted to be bradycardic and flecainide was reduced to 50 mg twice daily by the hospitalist service. Donepezil was discontinued. She was once again found to be have orthostatic blood pressure readings when standing. Midodrine 2.5 mg 3 times daily initiated by hospitalist service today. She is without complaint currently, but once again demented and does not offer much history. Review of systems: As above and otherwise unobtainable due to patient's dementia. Family History: Noncontributory. Social history: No current smoking. Occasional wine. Lives in a memory unit. . was present at the bedside. Allergies Allergy/AdvReac Type Severity Reaction Status Date / Time betamethasone Allergy Unknown unkn Verified 06/14/22 01:26 erythromycin base Allergy Unknown UNKNOWN Verified 06/14/22 01:26 esomeprazole Allergy Unknown UNKNOWN Verified 06/14/22 01:26 propyl gallate Allergy Unknown unkn Verified 06/14/22 01:26 pseudoephedrine Allergy Unknown UNKNOWN Verified 06/14/22 01:26 formaldehyde Allergy Unknown Verified 06/14/22 01:26 albuterol AdvReac Mild RAPID Verified 06/14/22 01:26 HEART RATE Home Medications Medication Instructions Recorded Confirmed Type dextromethorphan-guaifenesin 10 1 tab-cap PO Q6 PRN Cough 06/14/22 10/03/22 History mg-200 mg capsule (Robitussin Cough-Chest Congestion DM) vit C 250 mg-vit E 90 mg-zinc 40 12 cap PO DAILY 06/14/22 10/03/22 History mg-copper 1 [id number]-[id number] capsule (PreserVision AREDS-2) melatonin 3 mg tablet 3 mg PO HS PRN Insomnia 08/10/22 10/03/22 History acetaminophen 325 mg tablet 650 mg PO Q4 PRN Fever Or Pain #30 08/13/22 10/03/22 Rx tabs apixaban 2.5 mg tablet (Eliquis) 2.5 mg PO BID #60 tabs 08/13/22 10/03/22 Rx donepezil 23 mg tablet 23 mg PO DAILY 90 days #90 tabs 08/13/22 10/03/22 Rx escitalopram oxalate 10 mg tablet 10 mg PO DAILY #30 tabs 08/13/22 10/03/22 Rx flecainide 100 mg tablet 100 mg PO Q12H #60 tabs 08/13/22 10/03/22 Rx memantine 10 mg tablet 10 mg PO DAILY #90 tabs 08/13/22 10/03/22 Rx mometasone 220 mcg/actuation(120 1 puffs inhalation BID #3 ea 08/13/22 10/03/22 Rx doses)breath activated powder inhaler Patient History Medical History AF (paroxysmal atrial fibrillation) Aortic insufficiency ARF (acute renal failure) (2018) Arthritis Asthma Cervical pain Chronic back pain Dementia Diastolic dysfunction Epidermal inclusion cyst Fracture of multiple pubic rami Fracture occcurred 06/13/2022 Fracture, thoracic vertebra (~06/13/22) Fracture occurred 06/13/2022 GERD without esophagitis History of pneumonia Lumbar radiculopathy Mitral regurgitation Osteoporosis Pulmonary nodules Ribs, multiple fractures Right hip pain Sacroiliitis Scoliosis Shoulder pain, right Thyroid nodule Urinary incontinence Vitamin D deficiency Surgical History S/P bilateral cataract extraction S/P bilateral salpingo-oophorectomy S/P breast biopsy S/P colonoscopy S/P dilation and curettage S/P tooth extraction S/P tubal ligation Family History Father Myocardial infarction Congestive heart failure Mother Dementia Daughter Breast cancer Ovarian cancer Other No significant family history Denies family history of Prostate cancer Colorectal cancer Social History Smoking Status: Never smoker Second Hand Exposure: No; Do You Dip or Chew Tobacco: No; Tobacco Cessation Education Requested by Patient: No Hx Alcohol Use: No Hx Substance Use: No Preferred Language: Kazakh Communication Ability: Effective Visual Impairment: No Limitations Hearing Ability: Normal Rug Designer Required: No Beliefs That Will Affect Care: None marital status: Current Living Situation: Spouse and Personal Care Facility Current Living Situation Comment: Memory unit at [facility] current occupational status: retired Other Information That Helps Us Care for You: No Feels Safe at Home: Yes Safety Concerns: Feels Safe At This Time Seatbelt Use: always Sexual Activity: has been sexually active, but not for at least 12 months Assistive Devices: Walker and Wheelchair Physical Exam Physical Exam: Gen.: No acute distress. Alert. HEENT: Anicteric sclera. Neck: No JVD. No bruits. Normal carotid upstrokes bilaterally. Cardiac: PMI was nondisplaced. No ventricular heave. Regular. Normal S1-S2. 1/6 systolic murmurs. No rub or gallop. Pulmonary: Clear to auscultation bilaterally without wheezes, rales, or rhonchi. Abdomen: Soft, nontender, nondistended, with normoactive bowel sounds. No bruits noted. Extremities: 2+ radial pulses bilaterally. 2+ posterior tibialis pulses bilaterally. No edema or cyanosis. Results & Data ([facility]) Vital Signs (Past 12 Hours) Vital Signs Temp Pulse Pulse Resp BP Pulse Ox O2 Del Method 10/06/22 11:11 36.8 C 63 16 138/76 98 Room Air 10/06/22 09:10 Room Air 10/06/22 07:19 36.8 C 55 L 16 129/61 98 Room Air 10/06/22 07:23 43 L 10/06/22 04:06 36.2 C L 50 L 19 101/61 96 Room Air Intake & Output 10/04/22 10/05/22 10/06/22 10/07/22 05:59 06:59 06:59 06:59 Intake Total 1600 / 1600 1000 / 1000 Output Total 200 / 200 300 / 300 Balance 1400 / 1400 700 / 700 Weight 114 lb 10.246 oz Laboratory Results Laboratory Results - last 24 hr 10/06/22 10/06/22 06:20 06:20 WBC 7.69 RBC 3.76 L Hgb 12.0 Hct 36.8 L MCV 97.9 MCH 31.9 MCHC 32.6 RDW Std Deviation 49.7 H RDW Coeff of Indira 13.8 Plt Count 207 MPV 9.9 Sodium 140 Potassium 4.2 Chloride 109 H Carbon Dioxide 26 Anion Gap 5 BUN 12 Creatinine 0.62 Est Cr Clr Drug Dosing 50.5 Est GFR ( Amer) 92.7 Est GFR (Non-Af Amer) 79.9 BUN/Creatinine Ratio 19.4 Glucose 91 Calcium 8.6 Magnesium 2.0 Diagnostic Findings Telemetry personally reviewed: Sinus bradycardia. No arrhythmia. Echo 08/11/2022: Normal LV size, wall motion, systolic function. EF 60 to 65%. Mild AI. Mild MR. Normal RVSP. History and physical report from 10/03/2022 reviewed. Chart reviewed. ECGs personally reviewed: ECG 10/03/2022 at 11:12 AM: Sinus bradycardia 53 bpm. Poor R wave progression. Nonspecific T wave abnormality. ECG 10/03/2022 at 1317: Sinus bradycardia 57 bpm. Possible anteroseptal infarct. Nonspecific T wave abnormality. Records from July 2022 hospitalization reviewed. Chest x-ray 10/03/2022 image personally reviewed: No obvious infiltrate. No pleural effusion. Radiology reports no acute cardiopulmonary abnormality. Medications Administered Current Inpatient Medications Acetaminophen (Acetaminophen 325 Mg Tab) 650 mg PO Q8H GUY Stop: 11/03/22 20:59 Last Admin: 10/06/22 12:23 Dose: 650 mg Apixaban (Apixaban 2.5 Mg Tab) 2.5 mg PO BID GUY Stop: 11/02/22 20:59 Last Admin: 10/06/22 09:01 Dose: 2.5 mg Escitalopram Oxalate (Escitalopram Oxalate 10 Mg Tab) 10 mg PO DAILY [facility] Stop: 11/03/22 08:59 Last Admin: 10/06/22 09:01 Dose: 10 mg Flecainide Acetate (Flecainide Acetate 100 Mg Tablet) 50 mg PO BID GUY Stop: 11/03/22 20:59 Last Admin: 10/06/22 09:01 Dose: 50 mg Fluticasone Furoate (Fluticasone Furoate 100mcg 14 Puffs/Inhaler) 1 puffs INH DAILY GUY Stop: 11/03/22 08:59 Last Admin: 10/06/22 09:02 Dose: 1 puffs Melatonin (Melatonin 3 Mg Tab) 3 mg PO HS PRN PRN Reason: Insomnia Stop: 11/02/22 19:45 Last Admin: 10/05/22 19:39 Dose: 3 mg Memantine (Memantine Hcl 10 Mg Tab) 10 mg PO DAILY [facility] Stop: 11/03/22 08:59 Last Admin: 10/06/22 09:01 Dose: 10 mg Midodrine (Midodrine Hcl 2.5 Mg Tab) 2.5 mg PO TID@0800,1200,1700 [facility] Stop: 11/04/22 16:59 Last Admin: 10/06/22 12:23 Dose: 2.5 mg PG Care Time/CCT Total # of Minutes Spent Total Time Spent with Patient: Total time spent is greater than 50% in coordination of care (as documented) at patient's floor/unit and/or counseling patient: Coding Level of Care Code 39991 INT INP/OBS CARE 2/55MIN Diagnoses Sinus bradycardia R00.1 Paroxysmal atrial fibrillation I48.0 Syncope R55 Syncope type: unspecified Orthostatic hypotension I95.1 (3) Syncope Syncope type: unspecified Qualified Code(s): R55 - Syncope and collapse
[2022-10-06] MEDS: MELATONIN 3 MG TAB PO PRN (19:37)
[2022-10-07] MEDS: ACETAMINOPHEN 325 MG TAB PO SCH ×3 (04:58→20:10)
[2022-10-07] MEDS: ESCITALOPRAM OXALATE 10 MG TAB PO SCH (08:12)
[2022-10-07] MEDS: MIDODRINE HCL 2.5 MG TAB PO SCH ×3 (08:12→17:14)
[2022-10-07] MEDS: MEMANTINE HCL 10 MG TAB PO SCH (08:12)
[2022-10-07] MEDS: FLUTICASONE FUROATE 100MCG 14 PUFFS/INHALER INH SCH (08:12)
[2022-10-07] MEDS: APIXABAN 2.5 MG TAB PO SCH ×2 (08:12→20:11)
--- NOTE | 2022-10-07 10:38 | Cardiology Progress Note ---
Date of Service October 07, 2022 Assessment & Plan (1) Sinus bradycardia: (2) Paroxysmal atrial fibrillation: (3) Syncope: (4) Orthostatic hypotension: Plan ASSESSMENT/PLAN: 1. Sinus bradycardia: Given sedentary lifestyle, appears to be tolerating it well but given orthostatic blood pressure, may be beneficial to have faster heart rate to hopefully avoid or improve syncope in the future. She was completely asymptomatic with normal heart rate while in atrial fibrillation [facility] July 2022 hospitalization. Flecainide discontinued. Rate appears to have improved somewhat with discontinuation of heart donepezil as well. No urgent need for pacemaker at this time. 2. Paroxysmal atrial fibrillation: Was asymptomatic during July 2022 hospitalization while in rate controlled atrial fibrillation. Given bradycardia, flecainide discontinued on 10/06/2022. Discussed with her at that time that she will likely revert to atrial fibrillation at some point but as long as she is asymptomatic and heart rate is reasonable, this may possibly offer some benefit with syncope/near syncope. Continue anticoagulation for stroke risk reduction. 3. Syncope/orthostatic hypotension: Has had documented orthostatic blood pressure drops when changing positions. Presentation consistent with orthostatic hypotension as the driving force of her syncope. Midodrine has been initiated by primary hospitalist service. Hopefully with discontinuation of flecainide, her heart rate will further increase which may help reduce orthostatic symptoms as well. Recommend that she remain well-hydrated. Consider compression stockings. 4. Disposition: Follow-up with Dr. Mills within 1-3 weeks of discharge (Cardiology office is arranging). Please call with any further questions or concerns. Patient care communicated with Dr. Velasquez of the primary hospitalist service. Admission and Anticipated Discharge Date Admission Date: October 05, 2022 Subjective Patient seen this morning. She denies chest pain, palpitations, shortness of breath, syncope. She was alone in her hospital room. Review of systems limited due to her dementia. Physical Exam Physical Exam: Gen.: No acute distress. Alert. HEENT: Anicteric sclera. Neck: No JVD. Cardiac: No ventricular heave. Regular. Normal S1-S2. 1/6 systolic murmurs. No rub or gallop. Pulmonary: Clear to auscultation bilaterally without wheezes, rales, or rhonchi. Abdomen: Soft, nontender, nondistended, with normoactive bowel sounds. No bruits noted. Extremities: 2+ radial pulses bilaterally. 2+ posterior tibialis pulses bilaterally. No edema or cyanosis. Results & Data ([facility]) Vital Signs (Past 12 Hours) Vital Signs Temp Pulse Pulse Resp BP BP Pulse Ox 10/07/22 08:53 10/07/22 07:23 36.5 C 76 16 152/76 H 93 10/07/22 07:15 50 L 10/07/22 04:07 36.3 C L 51 L 20 148/85 H 95 10/07/22 00:00 36.5 C 54 L 20 145/83 H 94 O2 Del Method 10/07/22 08:53 Room Air 10/07/22 07:23 Room Air 10/07/22 07:15 10/07/22 04:07 Room Air 10/07/22 00:00 Room Air Diagnostic Findings Telemetry personally reviewed: Sinus bradycardia. No significant pauses. No arrhythmia. Chart reviewed. Medications Administered Current Inpatient Medications Acetaminophen (Acetaminophen 325 Mg Tab) 650 mg PO Q8H GUY Stop: 11/03/22 20:59 Last Admin: 10/07/22 04:58 Dose: Not Given Apixaban (Apixaban 2.5 Mg Tab) 2.5 mg PO BID GUY Stop: 11/02/22 20:59 Last Admin: 10/07/22 08:12 Dose: 2.5 mg Escitalopram Oxalate (Escitalopram Oxalate 10 Mg Tab) 10 mg PO DAILY GUY Stop: 11/03/22 08:59 Last Admin: 10/07/22 08:12 Dose: 10 mg Fluticasone Furoate (Fluticasone Furoate 100mcg 14 Puffs/Inhaler) 1 puffs INH DAILY GUY Stop: 11/03/22 08:59 Last Admin: 10/07/22 08:12 Dose: 1 puffs Melatonin (Melatonin 3 Mg Tab) 3 mg PO HS PRN PRN Reason: Insomnia Stop: 11/02/22 19:45 Last Admin: 10/06/22 19:37 Dose: 3 mg Memantine (Memantine Hcl 10 Mg Tab) 10 mg PO DAILY GUY Stop: 11/03/22 08:59 Last Admin: 10/07/22 08:12 Dose: 10 mg Midodrine (Midodrine Hcl 2.5 Mg Tab) 5 mg PO TID@0800,1200,1700 GUY Stop: 11/06/22 11:59 PG Care Time/CCT Total # of Minutes Spent Total Time Spent with Patient: Total time spent is greater than 50% in coordination of care (as documented) at patient's floor/unit and/or counseling patient: Coding Level of Care Code 02109 SUB INP/OBS CARE 2/35MIN Diagnoses Sinus bradycardia R00.1 Paroxysmal atrial fibrillation I48.0 Syncope R55 Syncope type: unspecified Orthostatic hypotension I95.1 (3) Syncope Syncope type: unspecified Qualified Code(s): R55 - Syncope and collapse
--- NOTE | 2022-10-07 18:11 | Hospitalist Progress Note ---
Date of Service October 07, 2022 Assessment & Plan (1) Orthostatic hypotension: Plan: Likely the cause of her syncope. Despite addition of midodrine 2.5mg TID yesterday she continues with + orthostatics. Increase dose to 5mg TID. She also looks mildly volume contracted - thus, will give some IV fluids overnight and re-eval in am. (2) Syncope: Plan: 2nd orthostatic hypotension. Also had bradycardia at admission. Aricept stopped. Flecainide stopped. Appreciate cardiology assistance. Cont TEDS. IV fluids again overnight. Repeat orthos in am. (3) Paroxysmal atrial fibrillation: Plan: Continue apixaban 2.5mg BID (adjusted dose for weight and age). Per cardiology patient was asymptomatic during July 2022 hospitalization while in rate controlled atrial fibrillation. No PAF during this admission. Flecainide stopped due to bradycardia. (4) Dementia: Plan: Cont memantine. Aricept has been stopped. Check a b12 level in am. recent TSH was wnl. (5) Asthma: Plan: Cont fluticasone. No flare at this time. (6) Chronic kidney disease, stage 3a: Plan: CrCL stable 50s yesterday repeat BMP in am for stability (7) DVT prophylaxis: Plan: eliquis BID Plan PT, OT have cleared her to return to the Memory Unit at [facility] at discharge Admission and Anticipated Discharge Date Admission Date: October 05, 2022 Subjective tele overnight - no PAF sinus bradycardia largely resolved - rates in the 60s orthostatic BPs this am were positive with 40 point drop with standing patient unable to provide any meaningful history during the visit pleasantly confused denies pain in any location Review of Systems Review of Systems: Unobtainable due to cognitive status Physical Exam Physical Exam: gen - NAD, pleasantly confused neck - no JVD mouth - MM slightly dry heart - RRR, s1 s2, no murmur lungs - CTA b/l abd - soft NT ND BS+ ext - no edema, pulses 2+ b/l psych - a/o x 1 only (person) Results & Data Results & Data ([facility]) Vital Signs (Past 12 Hours) Vital Signs Temp Pulse Pulse Resp BP Pulse Ox Pulse Ox 10/07/22 15:00 56 L 10/07/22 14:49 37.1 C 50 L 18 137/78 95 03/14/23 14:00 95 10/07/22 11:06 36.6 C 63 16 127/71 95 10/07/22 08:53 10/07/22 07:23 36.5 C 76 16 152/76 H 93 10/07/22 07:15 50 L O2 Del Method O2 Del Method 10/07/22 15:00 10/07/22 14:49 Room Air 10/07/22 14:00 Room Air 10/07/22 11:06 Room Air 10/07/22 08:53 Room Air 10/07/22 07:23 Room Air 10/07/22 07:15 PG Care Time/CCT Total # of Minutes Spent Total Time Spent with Patient: Total time spent is greater than 50% in coordination of care (as documented) at patient's floor/unit and/or counseling patient: Coding Level of Care Code 23356 SUB INP/OBS CARE 2/35MIN Diagnoses Orthostatic hypotension I95.1 Syncope R55 Syncope type: unspecified Paroxysmal atrial fibrillation I48.0 Dementia F03.90 Asthma J45.909 Chronic kidney disease, stage 3a N18.31 DVT prophylaxis Z29.9 (2) Syncope Syncope type: unspecified Qualified Code(s): R55 - Syncope and collapse
[2022-10-07] MEDS ORDERED: SODIUM CHLORIDE 0.9% 500 ML IV SCH (18:15)
[2022-10-08] MEDS: ACETAMINOPHEN 325 MG TAB PO SCH ×3 (04:19→19:37)
[2022-10-08] MEDS: ESCITALOPRAM OXALATE 10 MG TAB PO SCH (07:23)
[2022-10-08] MEDS: MIDODRINE HCL 2.5 MG TAB PO SCH ×3 (07:23→16:57)
[2022-10-08] MEDS: MEMANTINE HCL 10 MG TAB PO SCH (07:23)
[2022-10-08] MEDS: APIXABAN 2.5 MG TAB PO SCH ×2 (07:23→19:38)
[2022-10-08] MEDS: FLUTICASONE FUROATE 100MCG 14 PUFFS/INHALER INH SCH (07:23)
[2022-10-08 07:45] LABS: BUN Creatinine Ratio 19.7 (10-20); Calcium 8.5 mg/dl (8.5-10.1); Creatinine Clr Calc Pharmacy 45.3 ml/min; Est GFR (African American) 87.5 ml/min; Est GFR (Non-African American) 75.5 ml/min; Potassium 4.3 mmol/L (3.5-5.1)
[2022-10-08] MEDS: CYANOCOBALAMIN (B-12) 500 MCG TABLET PO SCH (09:01)
[2022-10-08] MEDS: FLUDROCORTISONE ACETATE 0.1 MG TAB PO SCH (10:50)
--- NOTE | 2022-10-08 11:55 | Hospitalist Progress Note ---
Date of Service October 08, 2022 Assessment & Plan (1) Orthostatic hypotension: Plan: Likely the cause of her syncope. Despite addition of midodrine with uptitration to 5mg TID along with IV hydration she continues with + orthostatics. Today she experienced a 40 point drop from supine to standing. Will add florinef 0.1mg daily in addition to the midodrine. Recheck orthostatic BPs 1x/shift. No further IV fluids. Cont TEDS hose. (2) Syncope: Plan: 2nd orthostatic hypotension. Also had bradycardia at admission. Aricept stopped. Flecainide stopped. Treating #1 as above. Appreciate cardiology assistance. Cont TEDS. Midodrine + florinef. Repeat orthos qshift. (3) Paroxysmal atrial fibrillation: Plan: Continue apixaban 2.5mg BID (adjusted dose for weight and age). Per cardiology patient was asymptomatic during July 2022 hospitalization while in rate controlled atrial fibrillation. No PAF during this admission. Flecainide stopped due to bradycardia. (4) Dementia: Plan: Cont memantine. Aricept has been stopped. recent TSH was wnl. B12 level is low - replace. (5) Asthma: Plan: Cont fluticasone. No flare at this time. (6) Chronic kidney disease, stage 3a: Plan: CrCL and Cr are stable on BMP today (7) DVT prophylaxis: Plan: eliquis BID (8) B12 deficiency: Plan: start oral B12 - 1000mcg daily x 1 year (9) UTI (urinary tract infection): Plan: ordered straight cath u/a and urine culture due to poor appetite, pt stating she "feels out of whack," etc u/a suggestive of UTI will start rocephin 1gm daily while awaiting culture Plan PT, OT have cleared her to return to the Memory Unit at [facility] at discharge once orthostatic BPs are improved can d/c back to [facility] attempted to call pt's elijah - phone # for him listed - just rang and range, could not leave message did speak with him directly last pm, however Admission and Anticipated Discharge Date Admission Date: October 05, 2022 Subjective tele overnight - NSR she remains orthostatic but at this time does not appear to be overtly symptomatic from such during my visit she asked "is it lunch-time yet?" unable to offer any other meaningful history/ROS due to pleasant confusion from dementia at one point said "I'm sorry, I'm out of whack" Review of Systems Review of Systems: Unobtainable due to cognitive status Physical Exam Physical Exam: gen - NAD, pleasantly confused neck - no JVD mouth - MMM today heart - RRR, s1 s2, no murmur lungs - CTA b/l abd - soft NT ND BS+ ext - no edema, pulses 2+ b/l psych - a/o x person only Results & Data Results & Data Vital Signs (Past 12 Hours) Vital Signs Temp Pulse Pulse Resp BP Pulse Ox O2 Del Method 10/08/22 10:53 36.6 C 56 L 18 146/64 H 96 Room Air 10/08/22 08:00 Room Air 10/08/22 07:22 36.7 C 55 L 18 152/79 H 99 Room Air 10/08/22 03:47 36.6 C 56 L 20 146/75 H 97 Room Air 10/08/22 00:49 64 Laboratory Results Laboratory Results - last 24 hr 10/08/22 10/08/22 06:28 06:28 Sodium 140 Potassium 4.3 Chloride 108 H Carbon Dioxide 26 Anion Gap 6 BUN 14 Creatinine 0.71 Est Cr Clr Drug Dosing 45.3 Est GFR ( Amer) 87.5 Est GFR (Non-Af Amer) 75.5 BUN/Creatinine Ratio 19.7 Glucose 91 Calcium 8.5 Vitamin B12 242 PG Care Time/CCT Total # of Minutes Spent Total Time Spent with Patient: Total time spent is greater than 50% in coordination of care (as documented) at patient's floor/unit and/or counseling patient: Coding Level of Care Code 64760 SUB INP/OBS CARE 2/35MIN Diagnoses Orthostatic hypotension I95.1 Syncope R55 Syncope type: unspecified Paroxysmal atrial fibrillation I48.0 Dementia F03.90 Asthma J45.909 Chronic kidney disease, stage 3a N18.31 DVT prophylaxis Z29.9 B12 deficiency E53.8 UTI (urinary tract infection) N39.0 (2) Syncope Syncope type: unspecified Qualified Code(s): R55 - Syncope and collapse
[2022-10-08 13:12] LABS: Appearance Urine Cloudy (Clear); Bacteria Urine Automated 4+ (Negative); Bilirubin Urine Negative (Negative); Blood Urine Trace (Negative); Color Urine Yellow; Epithelial Cell Urine Auto 0-5 /lpf (0-5); Glucose Urine UA Negative (Negative); Ketones Urine Negative (Negative); Leukocyte Esterase Urine 2+ (Negative); Nitrite Urine Positive (Negative); Protein Urine Negative (Negative); Urobilinogen Urine Negative (Negative); WBC Urine Automated >30 /hpf (0-5)
[2022-10-08] MEDS: cefTRIAXone SODIUM 1,000 MG in DEXTROSE 5% AD-VAN 50 ML IV SCH (14:05)
[2022-10-08] MEDS: ADVANCED PROBIOTIC 1250 MG CAPSULE PO SCH (14:05)
[2022-10-09] MEDS: ACETAMINOPHEN 325 MG TAB PO SCH ×3 (04:00→21:54)
[2022-10-09] MEDS: MIDODRINE HCL 2.5 MG TAB PO SCH ×3 (10:16→16:32)
[2022-10-09] MEDS: ADVANCED PROBIOTIC 1250 MG CAPSULE PO SCH (10:17)
[2022-10-09] MEDS: ESCITALOPRAM OXALATE 10 MG TAB PO SCH (10:18)
[2022-10-09] MEDS: CYANOCOBALAMIN (B-12) 500 MCG TABLET PO SCH (10:18)
[2022-10-09] MEDS: FLUDROCORTISONE ACETATE 0.1 MG TAB PO SCH (10:19)
[2022-10-09] MEDS: MEMANTINE HCL 10 MG TAB PO SCH (10:19)
[2022-10-09] MEDS: FLUTICASONE FUROATE 100MCG 14 PUFFS/INHALER INH SCH (10:20)
[2022-10-09] MEDS: APIXABAN 2.5 MG TAB PO SCH ×2 (10:20→21:54)
[2022-10-09] MEDS: cefTRIAXone SODIUM 1,000 MG in DEXTROSE 5% AD-VAN 50 ML IV SCH (13:11)
[2022-10-09] MEDS ORDERED: cephALEXin 500 MG CAP PO STA (13:11)
[2022-10-09 14:47] LABS: BUN Creatinine Ratio 22.1 (10-20); Calcium 9.2 mg/dl (8.5-10.1); Creatinine Clr Calc Pharmacy 47.3 ml/min; Est GFR (African American) 89.9 ml/min; Est GFR (Non-African American) 77.6 ml/min; Potassium 3.9 mmol/L (3.5-5.1)
--- NOTE | 2022-10-09 20:31 | Hospitalist Progress Note ---
Date of Service October 09, 2022 Assessment & Plan (1) Orthostatic hypotension: Plan: Likely the cause of her recurrent syncope. Was hospitalized for syncope in 07/2022. Records from that admission show a 50+ point drop in BP with standing. Upon presentation here her orthostasis was similar with a 50 point drop in SBP. Her orthostasis has improved - now about 25-30 point drops with standing and she doesn't appear to have any symptoms from such. She remains on midodrine 5mg TID + florinef 0.1mg daily. She is well-hydrated at this time. Random cortisol level is 7. Cont TEDS. Encourage hydration but this will always be difficult due to advanced dementia. (2) Syncope: Plan: 2nd orthostatic hypotension. Also had bradycardia at admission. Aricept stopped. Flecainide stopped. Treating #1 as above. Appreciate cardiology assistance. Cont TEDS. Midodrine + florinef. Repeat orthos qshift. (3) Paroxysmal atrial fibrillation: Plan: Continue apixaban 2.5mg BID (adjusted dose for weight and age). Per cardiology patient was asymptomatic during July 2022 hospitalization while in rate controlled atrial fibrillation. No PAF during this admission. Flecainide stopped due to bradycardia. (4) Dementia: Plan: Advanced. Cont memantine. Aricept has been stopped. recent TSH was wnl. B12 level is low - replace. (5) Asthma: Plan: Cont fluticasone. No flare at this time. (6) Chronic kidney disease, stage 3a: Plan: CrCL and Cr again are stable on BMP today (7) DVT prophylaxis: Plan: eliquis BID (8) B12 deficiency: Plan: started oral B12 - 1000mcg daily x 1 year (9) UTI (urinary tract infection): Plan: 2nd GNR + alpha strep s/p rocephin yesterday convert to PO keflex today f/u on final urine cx tomorrow Plan PT, OT have suggested SNF at discharge she is in Memory Unit at [facility] which is [facility] level of care social work has spoken with [facility] and are aware of PT/OT recommendations sounds as if [facility] can still accommodate her in the memory unit updated pt's by phone this evening Admission and Anticipated Discharge Date Admission Date: October 05, 2022 Subjective tele overnight wnl pt unable to provide any meaningful history or ROS she said "your name is Be" and would offer other nonsensical and unrelated information no issues per staff other than pulling out her IV overnight Review of Systems Review of Systems: Unobtainable due to cognitive status Physical Exam Physical Exam: gen - NAD, pleasantly confused neck - no JVD mouth - MMM heart - RRR, s1 s2, no murmur lungs - CTA b/l abd - soft NT ND BS+ ext - no edema, pulses 2+ b/l psych - a/o x person only Results & Data Results & Data Vital Signs (Past 12 Hours) Vital Signs Temp Pulse Resp BP Pulse Ox O2 Del Method 10/09/22 19:29 36.8 C 62 16 104/66 96 Room Air 10/09/22 18:27 Room Air 10/09/22 16:04 36.6 C 63 18 172/80 H 98 Room Air 10/09/22 11:30 36.8 C 62 18 154/80 H 98 Room Air Laboratory Results Laboratory Results - last 24 hr 10/09/22 10/09/22 14:04 14:04 Sodium 137 Potassium 3.9 Chloride 105 Carbon Dioxide 26 Anion Gap 6 BUN 15 Creatinine 0.68 Est Cr Clr Drug Dosing 47.3 Est GFR ( Amer) 89.9 Est GFR (Non-Af Amer) 77.6 BUN/Creatinine Ratio 22.1 H Glucose 110 H Calcium 9.2 Random Cortisol 7.63 PG Care Time/CCT Total # of Minutes Spent Total Time Spent with Patient: Total time spent is greater than 50% in coordination of care (as documented) at patient's floor/unit and/or counseling patient: Coding Level of Care Code 99704 SUB INP/OBS CARE 2/35MIN Diagnoses Orthostatic hypotension I95.1 Syncope R55 Syncope type: unspecified Paroxysmal atrial fibrillation I48.0 Dementia F03.90 Asthma J45.909 Chronic kidney disease, stage 3a N18.31 DVT prophylaxis Z29.9 B12 deficiency E53.8 UTI (urinary tract infection) N39.0 (2) Syncope Syncope type: unspecified Qualified Code(s): R55 - Syncope and collapse
[2022-10-09] MEDS ORDERED: MELATONIN 3 MG TAB PO SCH (21:00)
[2022-10-09] MEDS: cephALEXin 500 MG CAP PO SCH (21:54)
[2022-10-10] MEDS: ACETAMINOPHEN 325 MG TAB PO SCH ×2 (05:26→12:31)
[2022-10-10] MEDS: CYANOCOBALAMIN (B-12) 500 MCG TABLET PO SCH (09:30)
[2022-10-10] MEDS: cephALEXin 500 MG CAP PO SCH (09:30)
[2022-10-10] MEDS: MEMANTINE HCL 10 MG TAB PO SCH (09:30)
[2022-10-10] MEDS: MIDODRINE HCL 2.5 MG TAB PO SCH ×2 (09:30→12:31)
[2022-10-10] MEDS: ADVANCED PROBIOTIC 1250 MG CAPSULE PO SCH (09:30)
[2022-10-10] MEDS: FLUDROCORTISONE ACETATE 0.1 MG TAB PO SCH (09:30)
[2022-10-10] MEDS: ESCITALOPRAM OXALATE 10 MG TAB PO SCH (09:30)
[2022-10-10] MEDS: FLUTICASONE FUROATE 100MCG 14 PUFFS/INHALER INH SCH (09:31)
[2022-10-10] MEDS: APIXABAN 2.5 MG TAB PO SCH (09:31)
--- NOTE | 2022-10-10 12:31 | Discharge Summary ---
Date of Service October 10, 2022 Admission HPI Per Admitting Provider Pavithra Newman is an 87 year old female who resides at [facility] care unit who presents to the ER with syncope. Unable to get any history from the patient due to dementia. History obtained from at bedside. No syncopal event up until today since last admission for syncope due to [place] and orthostasis in July. Today she briefly lost consciousness for 5-10 seconds and fell to the floor while getting up to use her walker. Unknown if dizzy prior to falling. Occurred again when staff tried to move her from the bathroom therefore decided to bring her to the ER. In the ER EKG showed sinus bradycardia @ 57 bpm. She was referred to medicine for admission and ongoing management of syncope. Discharge Exam gen - NAD, pleasantly confused neck - no JVD mouth - MMM heart - RRR, s1 s2, no murmur lungs - CTA b/l abd - soft NT ND BS+ ext - no edema, pulses 2+ b/l psych - a/o x person only Discharge Data Allergies Allergy/AdvReac Type Severity Reaction Status Date / Time betamethasone Allergy Unknown unkn Verified 06/14/22 01:26 erythromycin base Allergy Unknown UNKNOWN Verified 06/14/22 01:26 esomeprazole Allergy Unknown UNKNOWN Verified 06/14/22 01:26 propyl gallate Allergy Unknown unkn Verified 06/14/22 01:26 pseudoephedrine Allergy Unknown UNKNOWN Verified 06/14/22 01:26 formaldehyde Allergy Unknown Verified 06/14/22 01:26 albuterol AdvReac Mild RAPID Verified 06/14/22 01:26 HEART RATE Consultations 10/03/22 13:21 ED Decision to Admit Stat 10/06/22 07:52 Consult Cardiology Routine Hospital Course (1) Orthostatic hypotension: Likely the cause of her recurrent syncope. Was hospitalized for syncope in 07/2022. Records from that admission show a 50+ point drop in BP with standing. Upon presentation here her orthostasis was similar with a 50 point drop in SBP. Her orthostasis has improved - now about 25-30 point drops with standing and she doesn't appear to have any symptoms from such. She remains on midodrine 5mg TID + florinef 0.1mg daily. She is well-hydrated at this time. Random cortisol level is 7. Cont TEDS. Encourage hydration but this will always be difficult due to advanced dementia. (2) Syncope: 2nd orthostatic hypotension. Also had bradycardia at admission. Aricept stopped. Flecainide stopped. Treating #1 as above. Appreciate cardiology assistance. Cont TEDS. Midodrine + florinef. Repeat orthos qshift. (3) Paroxysmal atrial fibrillation: Continue apixaban 2.5mg BID (adjusted dose for weight and age). Per cardiology patient was asymptomatic during July 2022 hospitalization while in rate controlled atrial fibrillation. No PAF during this admission. Flecainide stopped due to bradycardia. (4) Dementia: Advanced. Cont memantine. Aricept has been stopped. recent TSH was wnl. B12 level is low - replace. (5) Asthma: Cont fluticasone. No flare at this time. (6) Chronic kidney disease, stage 3a: CrCL and Cr again are stable on BMP today (7) DVT prophylaxis: eliquis BID (8) B12 deficiency: started oral B12 - 1000mcg daily x 1 year (9) UTI (urinary tract infection): 2nd GNR + alpha strep s/p rocephin yesterday convert to PO keflex today f/u on final urine cx tomorrow Plan PT, OT have suggested SNF at discharge she is in Memory Unit at [facility] which is [facility] level of care social work has spoken with [facility] and are aware of PT/OT recommendations sounds as if [facility] can still accommodate her in the memory unit updated pt's by phone this evening Discharge Plan Discharge Items Patient Disposition: Personal [facility] Reason For Visit: SYNCOPE Discharge Diagnosis: 1. syncope due to orthostatic hypotension 2. orthostatic hypotension likely combination of autonomic insufficiency, chronic poor oral intake, medication side effects, etc. 3. history of atrial fibrillation 4. severe dementia 5. vitamin B12 deficiency (level = 242) 6. UTI 7. history of asthma Activity: Resume your previous activity Non-emergency contact: Primary Care Provider and Diabetes Clinical Manager Call non-emergency contact if: you have any medication questions Follow-up/Referrals: Juan Mills MD [Physician] [facility] - Diet: Regular Addtl Attending Provider Instructions: Mrs Newman was hospitalized due to a syncopal episode. It was determined that the passing out spells were due to severely low blood pressure with standing ("orthostatic hypotension"). Her orthostasis is likely due to a number of factors as listed in the "discharge diagnoses" section above. Her orthostatic BPs improved with discontinuation of donepezil and flecainide. Orthostasis also improved with starting midodrine with fludrocortisone. Her drop in blood pressure with standing was initially 50 points; most recent numbers show a drop of 25-30 points or less. She is not symptomatic at this time with standing or working with therapy. She had no other syncopal events during the stay. We also treated her for urinary tract infection. recommendations - 1. stop flecainide 2. stop donepezil 3. start midodrine 5mg three times daily 4. start fludrocortisone 0.1mg daily 5. cephalexin 500mg twice daily for 5 days 6. probiotics for 5 days 7. vitamin B12 - 1000mcg daily x 6 months 8. if patient has additional syncopal events, frequent falls, head injuries, etc I would recommend discontinuation of Eliquis blood thinner. Risk of Eliquis may begin to outweigh the potential benefits of the drug at that point. For now can continue Eliquis cautiously. Pending Studies at Discharge: No Stand-Alone Forms: My [facility] JustBook, Smoking Cessation Skilled Items Patient informed of condition?: No DNR: Yes Discharge Level of Care: Other Communicable Disease: No Discharge Prognosis: Stable Lines: None Urinary Catheter: No Medications and DC Order Prescriptions: New cephalexin 500 mg Capsule 500 mg PO BID 5 Days Qty: 10 0RF Advanced Probiotic 625 mg (10 billion cell) Capsule 2 cap PO DAILY 5 Days Qty: 10 0RF midodrine 2.5 mg Tablet 5 mg PO TID@0800,1200,1700 Qty: 90 5RF fludrocortisone 0.1 mg Tablet 0.1 mg PO QAM Qty: 30 5RF cyanocobalamin (vitamin B-12) 1,000 mcg capsule 1,000 mcg PO DAILY Qty: 90 1RF Continued PreserVision AREDS-2 250-90-40-1 mg Capsule 12 cap PO DAILY Robitussin Cough-Chest Lewis DM 10-200 mg Capsule 1 tab-cap PO Q6 PRN (Reason: Cough) melatonin 3 mg Tablet 3 mg PO HS PRN (Reason: Insomnia) acetaminophen 325 mg Tablet 650 mg PO Q4 MDD 3g PRN (Reason: Fever Or Pain) Qty: 30 0RF escitalopram oxalate 10 mg tablet 10 mg PO DAILY Qty: 30 0RF memantine 10 mg tablet 10 mg PO DAILY Qty: 90 1RF mometasone 220 mcg/ actuation (120) aerosol powdr breath activated 1 puffs INH BID Qty: 3 2RF Eliquis 2.5 mg tablet 2.5 mg PO BID Qty: 60 0RF Discontinued flecainide 100 mg Tablet 100 mg PO Q12H Qty: 60 0RF donepezil 23 mg tablet 23 mg PO DAILY 90 Days Qty: 90 1RF Discharge Orders: Discharge Order (Routine); Ordered 10/10/22 Ordered By: Be Velasquez Admission Data Admit Date/Time: 10/05/22 11:21 Attending Provider: Be Velasquez Admit Provider: Be Quan Primary Care Provider: Lizandro Busby [place] Other Providers: Be Quan ; Juanito Dean ; Ash Leon ; Juan Mills ; Cale Moura ; Homer Daugherty ; Vincent Britt Jr ; Alvaro Jeter ; Luciana Zambrano ; Sydni Ramirez ; Ahsan Smith ; Rodrigue Loya ; Williams Soares ; Sherice Thomas ; Mikaela Jensen ; Bayron Jules ; Galen Galicia Henry C. ; Cale Kaufman V. Coding Diagnoses Orthostatic hypotension I95.1 Syncope R55 Syncope type: unspecified Paroxysmal atrial fibrillation I48.0 Dementia F03.90 Asthma J45.909 Chronic kidney disease, stage 3a N18.31 DVT prophylaxis Z29.9 B12 deficiency E53.8 UTI (urinary tract infection) N39.0
== END 2022-10-10 15:25 | disposition home or self-care (01) | DRG 312 ==
LOC: ED 11:01 → 2N 11:01 → SUATTDRO 13:22 → 2N 14:52 → SUATTDRO 10-05 11:21 → 3N 10-10 05:19
DX: N18.31 Chronic kidney disease, stage 3a; Z66 Do not resuscitate; M25.571 Pain in right ankle and joints of right foot; T43.595A Adverse effect of other antipsychotics and neuroleptics, initial encounter; Z88.8 Allergy status to other drugs, medicaments and biological substances; B95.4 Other streptococcus as the cause of diseases classified elsewhere; N39.0 Urinary tract infection, site not specified; M25.572 Pain in left ankle and joints of left foot; Z79.899 Other long term (current) drug therapy; F03.90 Unspecified dementia, unspecified severity, without behavioral disturbance, psychotic disturbance, mood disturbance, and anxiety; I95.2 Hypotension due to drugs; Z79.01 Long term (current) use of anticoagulants; I48.0 Paroxysmal atrial fibrillation; Z20.822 Contact with and (suspected) exposure to COVID-19; J45.909 Unspecified asthma, uncomplicated; R00.1 Bradycardia, unspecified; E53.8 Deficiency of other specified B group vitamins; T46.2X5A Adverse effect of other antidysrhythmic drugs, initial encounter